=== PATIENT | male | born 1980 | race Caucasian/White ===

== ENCOUNTER 2019-12-23 13:09 | Outpatient (REF) | payer MEDICAID, SELFPAY ==
--- NOTE | 2019-12-23 | US_ITS ---
EXAMINATION: US TRIPLEX SCANNING EXTREMITY, BILATERAL CLINICAL INFORMATION: Bilateral lower limb swelling. Rule out DVT. COMPARISON: None TECHNIQUE: Color-flow triplex imaging with spectral analysis and compression Doppler were performed on the lower extremities. FINDINGS: Respiratory variation, normal compression and augmented flow are noted throughout the lower extremities. The visualized common femoral vein, superficial femoral vein, profunda femoral vein, popliteal vein and midcalf peroneal and posterior tibial venous segments show no evidence of deep venous thrombosis. There is no Morales's cyst. IMPRESSION: Normal triplex scan without evidence of deep venous thrombosis involving the bilateral lower extremities.
== END 2019-12-23 13:10 | disposition home or self-care (01) ==
LOC: HO.HMGCX 13:09
PROVIDERS: PCP Nurse Practitioner Primary Care; Visit Provider Emergency Medicine
DX: R22.43 Localized swelling, mass and lump, lower limb, bilateral (principal)
CPT/HCPCS: 93970

== ENCOUNTER 2020-01-13 09:47 | Outpatient (REF) | payer MEDICAID, SELFPAY ==
--- NOTE | 2020-01-13 09:15 | EMG_ITS ---
Bilateral median and ulnar motor and sensory studies were performed. Bilateral radial sensory studies were performed and paraspinal muscles were tested. The needle examination was somewhat limited as he did not tolerate the examination. IMPRESSION: 1. Mild right median neuropathy across carpal tunnel. 2. Mild left ulnar neuropathy across cubital tunnel. 3. Chronic left mid cervical radiculopathy. MD CORTEZ Quiroz/EMERALD / [id number]
== END 2020-01-13 09:48 | disposition home or self-care (01) ==
LOC: HO.NEURO 09:47
PROVIDERS: Visit Provider Emergency Medicine
DX: R20.0 Anesthesia of skin (principal); R20.2 Paresthesia of skin
CPT/HCPCS: 95860; 95886; 95911

== ENCOUNTER 2020-01-19 13:32 | Emergency (ER) | payer MEDICAID, SELFPAY ==
[2020-01-19 14:32] VITALS: BP 110/69; PULSE 75; RESP 16; TEMP 36.8; BMI 22.3
[2020-01-19 17:13] VITALS: BP 118/76; PULSE 78; RESP 17; TEMP 36.6; O2SAT 100
--- NOTE | 2020-01-19 18:07 | ED_ITS ---
HPI - Abdominal Pain General Chief Complaint: Abdominal Pain Stated Complaint: STOMACH PAIN Time Seen by Provider: 01/19/20 17:48 History of Present Illness HPI narrative: patient is a 39-year-old male presents today with having abdominal pain in the left upper quadrant that is worse with lying down burning in nature been ongoing for years. Patient presents to the emergency department because he wanted to get seen. Patient has specialist follow-up with GI next week. No coughing or congestion or upper respiratory symptoms. No diarrhea. No vomiting. No fever no chills. No chest pain or shortness of breath no diaphoresis. Not made worse with exertion. Patient from home. Related Data Allergies Allergy/AdvReac Type Severity Reaction Status Date / Time No Known Allergies* Allergy Uncoded 12/02/19 21:31 Review of Systems Review of Systems Constitutional: No Weight loss, No Fever, No Chills, No Night Sweats, No Fatigue, No Malaise ENT/Mouth: No Hearing loss, No Ear Pain, No Nasal Congestion, No Sinus Pain, No Hoarseness, No sore throat, No Rhinorrhea, No Swallowing Difficulty Eyes: No Eye Pain, No Swelling, No Redness, No Foreign Body, No Discharge, No Vision Changes Cardiovascular: No Chest Pain, No SOB, No Dyspnea on Exertion, No Orthopnea, No Edema, No Palpitations Respiratory: No Cough, No Sputum, No Wheezing, No Smoke Exposure, No Dyspnea Gastrointestinal: No Nausea, No Vomiting, No Diarrhea, No Constipation, Positive abdominal Pain, No Hematochezia, No Melena Genitourinary: no irregular bleeding, No Dysuria, No Urinary Frequency, No Hematuria, No Urinary Incontinence, No Urgency, No Flank Pain, No Urinary Flow Changes, No Hesitancy Musculoskeletal: No joint pain, No Myalgias, No Joint Swelling Skin: No Skin Lesions, No rash Neuro: No Weakness, No Numbness, No Paresthesias, No Loss of Consciousness, No Dizziness, No Headache Psych: No Anxiety/Panic, No Depression, No SI/HI/AH/VH, No Social Issues, Heme/Lymph: No Bruising, No Bleeding,No Lymphadenopathy Endocrine: No Polyuria, No Polydipsia, No Temperature Intolerance Physical Exam Vital Signs: Vital Signs: Last Vital Signs Temp 98 F 01/19/20 17:13 Pulse 78 01/19/20 17:13 Resp 17 01/19/20 17:13 BP 118/76 01/19/20 17:13 Pulse Ox 100 01/19/20 17:13 Body Mass Index 22.3 Appearance: Alert. Oriented X3. No acute distress. Eyes: Pupils equal, round and reactive to light. ENT: Pharynx normal. Neck: Normal inspection. Neck supple. No lymph nodes noted. No crepitus CVS: Normal heart rate and rhythm. Pulses normal. Normal S1 and S2 Respiratory: No respiratory distress. Breath sounds normal. No Wheezing. No rales Abdomen: Soft and nontender. No rigidity. No distention. good BS x4 Skin: Skin warm and dry. Normal skin color. Normal skin turgor. Extremities: No lower extremity edema. Neurovascular intact to all extremities. No Lacerations. No Rash Neuro: Oriented X 3. No motor deficit. No sensory deficit. Moving all extermities. No slurred speech MDM - Abdominal Pain MDM Narrative Medical decision making narrative: Patient well-appearing electrolytes unre markable. Patient's LFTs are normal. Lipase normal. No evidence for pancreatitis. Will discharge patient home. More likely gastritis. Will have patient increase the dose of Prilosec from once a day to twice a day. Close follow-up with GI on an outpatient basis. In stable condition. Lab Data Result diagrams: 01/19/20 19:04 01/19/20 19:04 Labs: Lab Results 01/19/20 01/19/20 01/19/20 Range/Units 19:04 19:04 19:04 WBC 7.3 (4.8-10.8) X10*3/uL RBC 5.28 (4.60-5.80) X10*6/uL Hgb 14.8 (14.0-18.0) g/dl Hct 44.9 (42-52) % MCV 85.0 (80-98) fL MCH 28.0 (27.0-33.0) pg MCHC 33.0 (31.0-36.0) g/dl RDW 13.2 (11.0-16.0) % Plt Count 181 (160-400) X10*3/uL MPV 10.7 (9.4-12.4) fL Immature Gran % (Auto) 0.1 (0.0-0.4) % Neut % (Auto) 65.2 (45-73) % Lymph % (Auto) 24.0 (20-40) % [place] % (Auto) 8.2 (2-11) % Eos % (Auto) 1.8 (0-4) % Baso % (Auto) 0.7 (0-2) % Lymph # (Auto) 1.8 (1.2-4.9) X10*3/uL [place] # (Auto) 0.6 (0.1-1.2) X10*3/uL Eos # (Auto) 0.1 (0.0-0.4) X10*3/uL Baso # (Auto) 0.1 (0.0-0.2) X10*3/uL Abs Immat Gran (auto) 0.01 (0.00-0.03) X10*3/uL Absolute Neuts (auto) 4.8 (2.0-8.3) X10*3/uL Absolute Nucleated RBC 0.000 (0.0-0.012) X10*3/uL Nucleated RBC % (auto) 0.0 (0.0-0.2) /100WBC Sodium 140 (135-145) mmol/L Potassium 4.2 (3.3-5.1) mmol/l Chloride 101 (96-108) mmol/L Carbon Dioxide 30 H (22-29) mmol/L Anion Gap 13 (12-20) BUN 11 (9-16) mg/dL Creatinine 0.93 (0.5-1.4) mg/dL Estim Creat Clear Calc 107.3 Estimated GFR > 60 Random Glucose 83 (60-115) mg/dL Calcium 8.3 L (8.4-10.2) mg/dL Total Bilirubin 0.4 (0.0-1.0) mg/dL Direct Bilirubin 0.2 (0.0-0.5) mg/dL AST 14 (5-37) U/L ALT 13 (0-40) U/L Alkaline Phosphatase 53 (39-117) U/L Total Protein 7.0 (6.5-8.0) g/dL Albumin 4.2 (3.5-5.0) g/dL Lipase 27 (8-78) U/L Urine Color YELLOW Urine Appearance CLEAR Urine pH 6.0 (5.0-8.0) Ur Specific [place] 1.025 (1.005-1.025) Urine Protein NEG (NEG-TRACE) MG/DL Urine Glucose (UA) NEG (NEG) MG/DL Urine Ketones NEG (NEG) MG/DL Urine Blood NEG (NEG) Urine Nitrite NEG (NEG) Ur Leukocyte Esterase NEG (NEG) Discharge Plan Discharge Clinical Impression: Gastritis Patient Disposition: Home, Self-Care Instructions: Gastritis (ED) Additional Instructions: Please take your Prilosec 20 mg twice a day instead of once a day Referrals: Skylar Banks MD [Physician] - 5 days Stand Alone Forms: Work/School Release Print Language: Tajik [facility] Past Medical History Attestation statement: The following information was validated with the patient. Medical History Ulcer Social History Social History Alcohol intake: never Smoked in Last 30 Days: No Use of substances other than those prescribed or required for medical reasons: No Advance Directives: No Advance Directives Information Provided: No
[2020-01-19] MEDS: Lidocaine HCl Viscous 2 % 15 ML SOLUTION MUCOUS MEM (18:56)
[2020-01-19] MEDS: Magnesium Hydrox/Alum Hydrox 30 ML ORAL.SUSP PO (18:56)
[2020-01-19] MEDS: PHENobarb/Hyoscy/Atropine/Scop 10 ML ELIXIR PO (18:56)
[2020-01-19 19:11] LABS: MANUAL DIFF FLAG NO
[2020-01-19 19:14] LABS: Appearance Urine CLEAR; Basophils Absolute Auto 0.1 X10*3/uL (0.0-0.2); Basophils Percent Auto 0.7 % (0-2); Color Urine YELLOW; Eosinophils Absolute Auto 0.1 X10*3/uL (0.0-0.4); Eosinophils Percent Auto 1.8 % (0-4); Glucose Urine UA NEG (NEG); Hematocrit 44.9 % (42-52); Hemoglobin 14.8 g/dl (14.0-18.0); Imm Gran Abs Auto 0.01 X10*3/uL (0.00-0.03); Imm Gran Pct Auto 0.1 % (0.0-0.4); Leukocyte Esterase Urine NEG (NEG); Lymphocytes Absolute Auto 1.8 X10*3/uL (1.2-4.9); Mean Platelet Volume 10.7 fL (9.4-12.4); Monocytes Absolute Auto 0.6 X10*3/uL (0.1-1.2); Monocytes Percent Auto 8.2 % (2-11); Neutrophils Absolute Auto 4.8 X10*3/uL (2.0-8.3); Neutrophils Percent Auto 65.2 % (45-73); Nitrite Urine NEG (NEG); Platelet Count 181 X10*3/uL (160-400); Red Blood Count 5.28 X10*6/uL (4.60-5.80); Red Cell Distribution Width 13.2 % (11.0-16.0); Specific Gravity - Urine 1.025 (1.005-1.025); Urine Blood NEG (NEG); Urine Ketones NEG (NEG); Urine Protein NEG (NEG-TRACE); White Blood Count 7.3 X10*3/uL (4.8-10.8)
[2020-01-19 19:46] LABS: Alanine Aminotransferase 13 U/L (0-40); Albumin Level 4.2 g/dL (3.5-5.0); Alkaline Phosphatase 53 U/L (39-117); Anion Gap 13 (12-20); Aspartate Amino Transferase 14 U/L (5-37); Bilirubin Direct 0.2 mg/dL (0.0-0.5); Bilirubin Total 0.4 mg/dL (0.0-1.0); Blood Urea Nitrogen 11 mg/dL (9-16); Calcium 8.3 mg/dL (8.4-10.2); Carbon Dioxide 30 mmol/L (22-29); Chloride 101 mmol/L (96-108); Creatinine Clr Calc Pharmacy 107.3; Estimated Glomerular Filt Rate > 60; Glucose Random 83 mg/dL (60-115); Lipase 27 U/L (8-78); Potassium 4.2 mmol/l (3.3-5.1); Sodium 140 mmol/L (135-145)
== END 2020-01-19 20:24 | disposition home or self-care (01) ==
PROVIDERS: Emergency Provider Emergency Medicine Emergency Medical Services
DX: K29.00 Acute gastritis without bleeding (principal); R10.12 Left upper quadrant pain
CPT/HCPCS: 36415; 80048; 80076; 81003; 83690; 85025; 99284

== ENCOUNTER 2020-01-26 13:18 | Outpatient (REF) | payer MEDICAID, SELFPAY | END 2020-01-26 13:19 | disposition home or self-care (01) | LOC: HO.LAB 13:18 | PROVIDERS: Visit Provider Internal Medicine | DX: Z20.828 Contact with and (suspected) exposure to other viral communicable diseases (principal) | CPT/HCPCS: C9803; U0003 ==

== ENCOUNTER → 2020-02-17 08:23 | Outpatient (BNVA) | payer MEDICAID, SELFPAY | PROVIDERS: PCP Emergency Medicine; Referring Provider Emergency Medicine; Visit Provider Physician Assistant | DX: Z76.89 Persons encountering health services in other specified circumstances (principal) ==

== ENCOUNTER 2021-01-09 11:51 | Emergency (ER) | payer MEDICAID, SELFPAY ==
--- NOTE | ~2021-01-09 | US_ITS ---
EXAMINATION: US ABDOMEN LIMITED CLINICAL INFORMATION: Right upper quadrant/epigastric pain after eating. Rule out cholecystitis. COMPARISON: No similar priors. TECHNIQUE: Real-time imaging of the right upper quadrant abdominal viscera. FINDINGS: PANCREAS: The visualized portions of the pancreas are within normal limits. The tail is obscured by overlying bowel gas. LIVER: The liver is normal in size. The liver contour is normal. Parenchymal echogenicity is normal. No focal hepatic lesion. There is no intrahepatic biliary duct dilatation seen. GALLBLADDER: The gallbladder is physiologically distended without evidence of stones, sludge, wall thickening or pericholecystic fluid. There is a 0.3 cm nonmobile hyperechoic outpouching inseparable from the wall, likely a small polyp. COMMON BILE DUCT: Normal in caliber measuring 0.3 cm in diameter. RIGHT KIDNEY: No hydronephrosis. No renal calculi or focal parenchymal lesions. The kidney measures 10.6 cm in maximum dimension. FREE FLUID: None. US/US abdomen limited IMPRESSION: No acute sonographic abnormalities to explain the patient's symptoms. Specifically, no evidence of cholelithiasis or acute cholecystitis. Incidentally noted is made of a 0.3 cm gallbladder wall polyp which does not require further workup per size criteria.
[2021-01-09 12:03] VITALS: BP 117/75; PULSE 73; O2SAT 99
[2021-01-09 12:09] VITALS: BP 130/75; PULSE 65; RESP 18; TEMP 36.8; O2SAT 100; BMI 23.5
[2021-01-09 12:54] LABS: MANUAL DIFF FLAG NO
[2021-01-09 12:55] LABS: Basophils Absolute Auto 0.1 X10*3/uL (0.0-0.2); Basophils Percent Auto 0.8 % (0-2); Eosinophils Absolute Auto 0.1 X10*3/uL (0.0-0.4); Eosinophils Percent Auto 1.5 % (0-4); Hematocrit 47.4 % (42.0-52.0); Hemoglobin 15.9 g/dl (14.0-18.0); Imm Gran Abs Auto 0.01 X10*3/uL (0.00-0.03); Imm Gran Pct Auto 0.1 % (0.0-0.4); Lymphocytes Absolute Auto 1.2 X10*3/uL (1.2-4.9); Lymphocytes Percent Auto 15.3 % (20-40); Mean Corpuscular HGB Conc 33.5 g/dl (31.0-36.0); Mean Corpuscular Hemoglobin 28.8 pg (27.0-33.0); Mean Corpuscular Volume 85.7 fL (80.0-98.0); Mean Platelet Volume 10.3 fL (9.4-12.4); Monocytes Absolute Auto 0.6 X10*3/uL (0.1-1.2); Monocytes Percent Auto 8.1 % (2-11); Neutrophils Absolute Auto 5.56 x10*3/uL (2.0-8.3); Neutrophils Percent Auto 74.2 % (45-73); Platelet Count 170 X10*3/uL (160-400); Red Blood Count 5.53 X10*6/uL (4.60-5.80); Red Cell Distribution Width 13.2 % (11.0-16.0); White Blood Count 7.5 X10*3/uL (4.8-10.8)
--- NOTE | 2021-01-09 12:57 | ED.GIBLEED ---
HPI - GI Bleed General Chief complaint: Abdominal Pain Stated complaint: ABD PAIN W/ VOMITING FROM CLINIC Time Seen by Provider: 01/09/21 12:37 Source: patient and EMS Mode of arrival: EMS Limitations: no limitations History of Present Illness HPI Narrative: 40-year-old male past medical history significant for gastritis, gastric ulcers presents to the emergency department with concerns of epigastric abdominal pain, blood in vomit, and blood in stools since yesterday. He states yesterday he had me, and rice, laid down shortly after he felt like something sour went up his thrill into his mouth, he threw up in the toilet, he noted that there is a small amount of blood. He states that this has never happened to him. He also states he thinks he saw some blood in his stool, yesterday. His abdominal pain is in the epigastric region, does not radiate, is worse with eating. He has had previous endoscopies, which have shown gastric ulcers, and esophagitis He has never had a colonoscopy or H.pylori testing . Thought this time he denies fevers, chills, nausea, chest pain, shortness of breath, weakness, headache, recent upper respiratory infection. MD complaint: blood streaked emesis and blood streaked stool Onset (ago): day(s) (2) Pain Consistency: intermittent (Abdominal pain with eating) Severity: severe Relieving factors: none Exacerbating factors: none Associated symptoms: abdominal pain (Epigastric), nausea and vomiting Treatments Prior to Arrival: OTC meds (Famotidine, Pepcid, Sucralfate ) Related Data Home Medications Medication Instructions Recorded Confirmed sucralfate 1 gram tablet 1 g PO BID 02/17/20 02/17/20 Previous Rx's Medication Instructions Recorded famotidine 40 mg tablet 40 mg PO DAILY #30 tab 02/17/20 omeprazole 40 mg capsule,delayed 40 mg PO BID 14 Days #28 cap 01/09/21 release ondansetron 4 mg disintegrating 4 mg PO ONCE PRN #7 tab 01/09/21 tablet Allergies Allergy/AdvReac Type Severity Reaction Status Date / Time No Known Drug Allergies Allergy Unknown Verified 01/09/21 12:15 Review of Systems Review of Systems: Constitutional : No Weight loss, No Fever, No Chills, No Fatigue, No Malaise ENT/Mouth : No sore throat, No Rhinorrhea Eyes: No Eye Pain, No Swelling, No Redness Cardiovascular : No Chest Pain, No SOB, No Dyspnea on Exertion, No Orthopnea, No Edema, No Palpitations Respiratory : No Cough, No Sputum, No Wheezing Gastrointestinal : No Nausea, + Vomiting, No Diarrhea, No Constipation, + abdominal Pain,+ hematemesis, No Hematochezia, No Melena, + Blood steaked stook Genitourinary : No Dysuria, No Urinary Frequency, No Hematuria, Musculoskeletal : No joint pain, No Myalgias, No Joint Swelling Skin : No Skin Lesions, No rash Neuro : No Weakness, No Numbness, No Dizziness, No Headache All other systems reviewed and are negative [facility] Past Medical History Attestation statement: The following information was validated with the patient. Source: old records reviewed and nursing notes reviewed Medical History Acid reflux Hiatal hernia Ulcer Varicose vein of scrotum Family History Family History Unknown No problems noted. Social History Social History Household Members: Spouse and Children Alcohol intake: never Patient Tobacco Use Status: Never used Tobacco Use of substances other than those prescribed or required for medical reasons: No Advance Directives: No Advance Directives Information Provided: Yes Physical Exam Vital Signs: Vital Signs: Last Vital Signs Temp 98.2 F 01/09/21 12:09 Pulse 65 01/09/21 12:09 Resp 18 01/09/21 12:09 BP 130/75 01/09/21 12:09 Pulse Ox 100 01/09/21 12:09 Body Mass Index 23.5 Appearance: Alert. Oriented X3. No acute distress. Eyes: Pupils equal, round and reactive to light. ENT: Pharynx normal. Neck: Normal inspection. Neck supple. CVS: Normal heart rate and rhythm. Pulses normal. Respiratory: No respiratory distress. Breath sounds normal. Abdomen: Soft and + tenderness to palpation to epigastric region . Skin: Skin warm and dry. Normal skin color. Normal skin turgor. Extremities: No lower extremity edema. No calf ttp Neuro: Oriented X 3. No motor deficit. No sensory deficit. Course Reevaluation(s) Reevaluation #1: At this time there is no leukocytosis noted, H&H stable, no anemia noted. No evident electrolyte abnormalities. Hemoccult negative. COVID negative. At this time vital signs are stable, patient is not tachycardic, patient reports no bleeding while in the emergency department, hemoccult is negative. No concerns for acute blood loss anemia at this time. This is likely chronic gastritis. Patient has already been instructed to get tested for H pylori, however he has not followed up. He has been educated on the importance of getting H pylori tested and following up with GI for further evaluation. He will be provided with GI contact information, so he can call and make an appointment. He will be sent home on high-dose PPIs for 2 weeks. He will also be given Zofran for nausea. He is safe for discharge home with prompt GI follow up and PCP follow up Time: 14:39 MDM - GI Bleed MDM Narrative Medical decision making narrative: 1325 40-year-old male past medical history significant for gastric ulcers, and gastritis presents to the emergency department with 2 days of epigastric pain that is sharp, intermittent in nature, wors with eating, blood streaked emesis, and blood streak stool x2 days. He is, and an endoscopy in the past which showed gastritis, and gastric ulcers. He has never had H pylori testing, or colonoscopies in the past. Upon physical examination there is tenderness to the epigastric region. Lungs are clear to auscultation. Vital signs are stable, and patient is afebrile. S1 and S2 appreciated free of murmurs. A HUMA has been done, and a card will be sent down for stool guaiac. Plan at this time is to obtain basic labs, type and screen, drug screen, EtOH, liver, OBS, PTT, PT INR. He will be given pantoprazole, and Zofran. Lab Data Result diagrams: 01/09/21 12:49 01/09/21 12:49 Labs: Lab Results 01/09/21 01/09/21 01/09/21 Range/Units 12:49 12:49 13:21 WBC 7.5 (4.8-10.8) X10*3/uL RBC 5.53 (4.60-5.80) X10*6/uL Hgb 15.9 (14.0-18.0) g/dl Hct 47.4 (42.0-52.0) % MCV 85.7 (80.0-98.0) fL MCH 28.8 (27.0-33.0) pg MCHC 33.5 (31.0-36.0) g/dl RDW 13.2 (11.0-16.0) % Plt Count 170 (160-400) X10*3/uL MPV 10.3 (9.4-12.4) fL Immature Gran % (Auto) 0.1 (0.0-0.4) % Neut % (Auto) 74.2 H (45-73) % Lymph % (Auto) 15.3 L (20-40) % [place] % (Auto) 8.1 (2-11) % Eos % (Auto) 1.5 (0-4) % Baso % (Auto) 0.8 (0-2) % Lymph # (Auto) 1.2 (1.2-4.9) X10*3/uL [place] # (Auto) 0.6 (0.1-1.2) X10*3/uL Eos # (Auto) 0.1 (0.0-0.4) X10*3/uL Baso # (Auto) 0.1 (0.0-0.2) X10*3/uL Abs Immat Gran (auto) 0.01 (0.00-0.03) X10*3/uL Absolute Neuts (auto) 5.56 (2.0-8.3) x10*3/uL Absolute Nucleated RBC 0.000 (0.0-0.012) X10*3/uL Nucleated RBC % (auto) 0.0 (0.0-0.2) /100WBC PT (9.9-13.0) SEC INR (0.9-1.1) APTT (24.1-38.0) SEC Sodium 138 (135-145) mmol/L Potassium 4.5 (3.3-5.1) mmol/L Chloride 103 (96-108) mmol/L Carbon Dioxide 29 (22-29) mmol/L Anion Gap 11 L (12-20) BUN 8 L (9-16) mg/dL Creatinine 0.90 (0.5-1.4) mg/dL Estim Creat Clear Calc 113.8 Estimated GFR > 60 Random Glucose 91 (60-115) mg/dL Calcium 8.8 D (8.4-10.2) mg/dL Total Bilirubin 0.3 (0.0-1.0) mg/dL AST 19 (5-37) U/L ALT 23 (0-40) U/L Alkaline Phosphatase 54 (39-117) U/L Total Protein 7.1 (6.5-8.0) g/dL Albumin 4.2 (3.5-5.0) g/dL Lipase 23 (8-78) U/L Stool Occult Blood (NEGATIVE) Ethyl Alcohol mg/dL COVID-19 (JARETH) (Negative) COVID-19 Clin Com Blood Type Antibody Screen 01/09/21 01/09/21 01/09/21 Range/Units 13:21 13:21 13:21 WBC (4.8-10.8) X10*3/uL RBC (4.60-5.80) X10*6/uL Hgb (14.0-18.0) g/dl Hct (42.0-52.0) % MCV (80.0-98.0) fL MCH (27.0-33.0) pg MCHC (31.0-36.0) g/dl RDW (11.0-16.0) % Plt Count (160-400) X10*3/uL MPV (9.4-12.4) fL Immature Gran % (Auto) (0.0-0.4) % Neut % (Auto) (45-73) % Lymph % (Auto) (20-40) % [place] % (Auto) (2-11) % Eos % (Auto) (0-4) % Baso % (Auto) (0-2) % Lymph # (Auto) (1.2-4.9) X10*3/uL [place] # (Auto) (0.1-1.2) X10*3/uL Eos # (Auto) (0.0-0.4) X10*3/uL Baso # (Auto) (0.0-0.2) X10*3/uL Abs Immat Gran (auto) (0.00-0.03) X10*3/uL Absolute Neuts (auto) (2.0-8.3) x10*3/uL Absolute Nucleated RBC (0.0-0.012) X10*3/uL Nucleated RBC % (auto) (0.0-0.2) /100WBC PT 12.4 (9.9-13.0) SEC INR 1.1 (0.9-1.1) APTT 32.3 (24.1-38.0) SEC Sodium (135-145) mmol/L Potassium (3.3-5.1) mmol/L Chloride (96-108) mmol/L Carbon Dioxide (22-29) mmol/L Anion Gap (12-20) BUN (9-16) mg/dL Creatinine (0.5-1.4) mg/dL Estim Creat Clear Calc Estimated GFR Random Glucose (60-115) mg/dL Calcium (8.4-10.2) mg/dL Total Bilirubin (0.0-1.0) mg/dL AST (5-37) U/L ALT (0-40) U/L Alkaline Phosphatase (39-117) U/L Total Protein (6.5-8.0) g/dL Albumin (3.5-5.0) g/dL Lipase (8-78) U/L Stool Occult Blood (NEGATIVE) Ethyl Alcohol < 10 mg/dL COVID-19 (JARETH) Negative (Negative) COVID-19 Clin Com See Note Blood Type Antibody Screen 01/09/21 01/09/21 Range/Units 13:21 13:33 WBC (4.8-10.8) X10*3/uL RBC (4.60-5.80) X10*6/uL Hgb (14.0-18.0) g/dl Hct (42.0-52.0) % MCV (80.0-98.0) fL MCH (27.0-33.0) pg MCHC (31.0-36.0) g/dl RDW (11.0-16.0) % Plt Count (160-400) X10*3/uL MPV (9.4-12.4) fL Immature Gran % (Auto) (0.0-0.4) % Neut % (Auto) (45-73) % Lymph % (Auto) (20-40) % [place] % (Auto) (2-11) % Eos % (Auto) (0-4) % Baso % (Auto) (0-2) % Lymph # (Auto) (1.2-4.9) X10*3/uL [place] # (Auto) (0.1-1.2) X10*3/uL Eos # (Auto) (0.0-0.4) X10*3/uL Baso # (Auto) (0.0-0.2) X10*3/uL Abs Immat Gran (auto) (0.00-0.03) X10*3/uL Absolute Neuts (auto) (2.0-8.3) x10*3/uL Absolute Nucleated RBC (0.0-0.012) X10*3/uL Nucleated RBC % (auto) (0.0-0.2) /100WBC PT (9.9-13.0) SEC INR (0.9-1.1) APTT (24.1-38.0) SEC Sodium (135-145) mmol/L Potassium (3.3-5.1) mmol/L Chloride (96-108) mmol/L Carbon Dioxide (22-29) mmol/L Anion Gap (12-20) BUN (9-16) mg/dL Creatinine (0.5-1.4) mg/dL Estim Creat Clear Calc Estimated GFR Random Glucose (60-115) mg/dL Calcium (8.4-10.2) mg/dL Total Bilirubin (0.0-1.0) mg/dL AST (5-37) U/L ALT (0-40) U/L Alkaline Phosphatase (39-117) U/L Total Protein (6.5-8.0) g/dL Albumin (3.5-5.0) g/dL Lipase (8-78) U/L Stool Occult Blood NEGATIVE (NEGATIVE) Ethyl Alcohol mg/dL COVID-19 ([facility]ARETH) (Negative) COVID-19 Clin Com Blood Type O Positive Antibody Screen NEGATIVE Discharge Plan Discharge Clinical Impression: Acid reflux, Gastritis, Epigastric abdominal pain Patient Disposition: Home, Self-Care Instructions: Gastritis (ED), Diet for Stomach Ulcers and Gastritis (ED), Indigestion (ED), Epigastric Pain (ED) Additional Instructions: Do not take any NSAIDS Follow-up with GI, and your primary care provider. It is important that you get tested for H pylori. Your labs today looked good and showed no infection, or anemia. The ultrasound of your stomach also looks good. Return to the emergency department with new or worsening symptoms Prescriptions: New omeprazole 40 mg capsule,delayed release(DR/EC) 40 mg PO BID 14 Days Qty: 28 RF: 0 ondansetron 4 mg tablet,disintegrating 4 mg PO ONCE PRN (Reason: nausea and vomiting) Qty: 7 RF: 0 No Action sucralfate 1 gram tablet 1 g PO BID RF: 0 famotidine 40 mg tablet 40 mg PO DAILY Qty: 30 RF: 5 Referrals: Tony Frazier MD [Physician] - 2 days Stand Alone Forms: Work/School Release Print Language: Lao
[2021-01-09 13:18] LABS: Alanine Aminotransferase 23 U/L (0-40); Albumin Level 4.2 g/dL (3.5-5.0); Alkaline Phosphatase 54 U/L (39-117); Anion Gap 11 (12-20); Aspartate Amino Transferase 19 U/L (5-37); Bilirubin Total 0.3 mg/dL (0.0-1.0); Blood Urea Nitrogen 8 mg/dL (9-16); Calcium 8.8 mg/dL (8.4-10.2); Carbon Dioxide 29 mmol/L (22-29); Chloride 103 mmol/L (96-108); Creatinine Clr Calc Pharmacy 113.8; Estimated Glomerular Filt Rate > 60; Glucose Random 91 mg/dL (60-115); Potassium 4.5 mmol/L (3.3-5.1); Sodium 138 mmol/L (135-145); Total Protein 7.1 g/dL (6.5-8.0)
[2021-01-09] MEDS: Pantoprazole Sodium 40 MG/10 ML VIAL IVPUSH (13:23)
[2021-01-09] MEDS: ondansetron HCL 4 MG/2 ML VIAL IVPUSH (13:23)
[2021-01-09] MEDS: 0.9 % Sodium Chloride 1,000 ML 999 ML IV (13:23)
--- NOTE | 2021-01-09 13:26 | PC.NURSE ---
iv inserted, labs drawn, pt medicated per order, pt is aware we need a urine, vss, covid swab obtained, family at bedside, will continue to monitor.
[2021-01-09 13:28] LABS: OBS1 NEGATIVE (NEGATIVE)
[2021-01-09 13:29] LABS: OBS Int Ctl Valid YES
[2021-01-09 13:40] LABS: INTERNATIONAL NORM RATIO 1.1 (0.9-1.1); Prothrombin Time 12.4 SEC (9.9-13.0)
[2021-01-09 13:42] LABS: COVID-19 Test Negative (Negative); IDNOW Serial# 9DD0AD1C
[2021-01-09 13:43] LABS: Partial Thromboplastin Time 32.3 SEC (24.1-38.0)
[2021-01-09 13:47] LABS: Ethanol < 10 mg/dL
[2021-01-09 13:50] LABS: Lipase 23 U/L (8-78)
--- NOTE | 2021-01-09 13:55 | PC.NURSE ---
patient is in ultrasound
[2021-01-09 14:00] VITALS: BP 129/68; PULSE 66; RESP 18; TEMP 36.7; O2SAT 100
== END 2021-01-09 15:02 | disposition home or self-care (01) ==
PROVIDERS: Emergency Provider Emergency Medicine; PCP Nurse Practitioner Primary Care
DX: K29.70 Gastritis, unspecified, without bleeding (principal); K21.9 Gastro-esophageal reflux disease without esophagitis; Z20.822 Contact with and (suspected) exposure to COVID-19; Z79.899 Other long term (current) drug therapy
CPT/HCPCS: 36415; 76705; 80053; 82077; 82272; 83690; 85025; 85610; 85730; 86850; 86900; 86901; 87635; 96361; 96374; 96375; 99284; J2405

== ENCOUNTER → 2021-04-19 14:27 | Outpatient (BNVA) | payer MEDICAID, SELFPAY | PROVIDERS: PCP Nurse Practitioner Primary Care; Referring Provider Nurse Practitioner Primary Care; Visit Provider Physician Assistant | DX: K20.90 Esophagitis, unspecified without bleeding (principal); K21.9 Gastro-esophageal reflux disease without esophagitis | CPT/HCPCS: 99212 ==

== ENCOUNTER 2021-04-27 09:21 | Outpatient (REF) | payer MEDICAID, SELFPAY ==
[2021-04-27 09:34] LABS: MANUAL DIFF FLAG NO
[2021-04-27 10:00] LABS: Basophils Percent Auto 0.6 % (0-2); Eosinophils Absolute Auto 0.2 X10*3/uL (0.0-0.4); Eosinophils Percent Auto 3.2 % (0-4); Hematocrit 44.8 % (42.0-52.0); Hemoglobin 14.7 g/dl (14.0-18.0); Lymphocytes Absolute Auto 1.2 X10*3/uL (1.2-4.9); Lymphocytes Percent Auto 22.9 % (20-40); Mean Corpuscular HGB Conc 32.8 g/dl (31.0-36.0); Mean Corpuscular Hemoglobin 27.9 pg (27.0-33.0); Mean Corpuscular Volume 85.2 fL (80.0-98.0); Mean Platelet Volume 10.9 fL (9.4-12.4); Monocytes Absolute Auto 0.6 X10*3/uL (0.1-1.2); Neutrophils Absolute Auto 3.4 x10*3/uL (2.0-8.3); Neutrophils Percent Auto 62.3 % (45-73); Platelet Count 191 X10*3/uL (160-400); Red Blood Count 5.26 X10*6/uL (4.60-5.80); Red Cell Distribution Width 13.2 % (11.0-16.0); White Blood Count 5.4 X10*3/uL (4.8-10.8)
== END 2021-04-27 09:22 | disposition home or self-care (01) ==
LOC: HO.LAB 09:21
PROVIDERS: PCP Nurse Practitioner Primary Care; Visit Provider Physician Assistant
DX: K20.90 Esophagitis, unspecified without bleeding (principal)
CPT/HCPCS: 36415; 85025

== ENCOUNTER 2021-05-17 10:30 | Day surgery (SDC) | payer MEDICAID, SELFPAY ==
[2021-05-17 10:52] VITALS: BMI 22.8
[2021-05-17 11:12] VITALS: BP 111/63; PULSE 74; RESP 16; TEMP 36.8; O2SAT 98
[2021-05-17] MEDS: Lactated Ringers 1,000 ML 50 ML IVCONT (11:18)
--- NOTE | 2021-05-17 11:55 | PC.NURSE ---
Patient states he tested positive for covid 19 via home test at the end of March, around April 03 . Patient feels back to normal now. Dr. Wynn made aware. Okay to proceed as scheduled.
--- NOTE | 2021-05-17 11:58 | MHC.SHP ---
Pre-Procedural Eval Section A Date of Service: 05/17/21 Section B Chief Complaint: esophagitis without bleeding Relevant Family History (Specify if Yes): No Relevant Social History: None Present Medications: see Short Stay Collaborative assessment Medical History: Significant History (Acid reflux Esophagitis Hiatal hernia Ulcer Varicose vein of scrotum) Allergies: Allergies Allergy/AdvReac Type Severity Reaction Status Date / Time No Known Drug Allergies Allergy Unknown Verified 01/09/21 12:15 Review of Systems Sugical H&P ROS: Negative: Constitution, Cardiovascular, Respiratory, Neurological, Psychiatric, Hem-Onc, Allergic/Immunologic, Gastrointestinal, Genitourinary, Musculoskeletal, Integumentary, Endocrine and Eyes/Ears/Nose/Throat Exam Surgical H&P Exam: Normal: HEENT, Normal: Heart, Normal: Lungs, Normal: Extremities, Normal: Abdomen, Normal: Skin and Normal: Neurological Plan Diagnosis/Plan: Unchanged I have reviewed the history and physical and performed a pertinent physical examination on my patient. No changes have occurred unless specified.
--- NOTE | 2021-05-17 12:25 | P.CONAN_ITS ---
HPI - Anesthesia Eval Consult details Narrative: [facility] Active Problems Active Problems: All Active Problems (Updated 04/19/21 @ 15:24 by Alexa Miranda PA-C) Esophagitis (Acute) Acid reflux (Acute) Past Medical History Medical History Acid reflux Esophagitis Hiatal hernia Ulcer Varicose vein of scrotum Family History Family History Unknown No problems noted. Family history of problems with anesthesia: No Surgical History Surgical History (Updated 05/11/21 @ 11:22 by Joy Villalobos RN) History of esophagogastroduodenoscopy (EGD) Hx of colonoscopy History of Problems with Anesthesia: No Social History Social History (Updated 04/19/21 @ 14:39 by Alexa Miranda PA-C) Household Members: Spouse and Children Alcohol intake: never Patient Tobacco Use Status: Never used Tobacco Use of substances other than those prescribed or required for medical reasons: No Are you DNR?: No Advance Directives: No Advance Directives Information Provided: Yes Current occupation: [employer] Allergies Allergy/AdvReac Type Severity Reaction Status Date / Time No Known Drug Allergies Allergy Unknown Verified 01/09/21 12:15 Active Medications: Current Medications Lactated Ringer's (Lr) 1,000 mls @ 50 mls/hr IVCONT .Q20H ANTONIO Last Admin: 05/17/21 11:18 Dose: 50 mls/hr Documented by: Exam Exam Date and Time: May 17, 2021 1225 Height,Weight and Vital Signs: Height 5 ft 11 in Weight 74.389 kg Last Vital Signs Temp 98.3 F 05/17/21 11:12 Pulse 74 05/17/21 11:12 Resp 16 05/17/21 11:12 BP 111/63 05/17/21 11:12 Pulse Ox 98 05/17/21 11:12 Airway Mallampati Class: II TM Dist: >3cm Neck ROM: Full Loose/Missing/Broken Teeth: No Heart: [id number] Lungs: cta b/l Assessment and Plan Assessment Anesthesia Assessment: Anesthesia Plan Discussed and Chart Reviewed Final Anesthetic Review Family History of Problems with Anesthesia: No History of Problems with Anesthesia: No NPO: Yes ASA Class: II Final Preanesthetic Review: No Changes in Pt Med Stat, Meds/Allgs Chart Reviewed, Consent Obtained/Reviewed and Anes Risks/Benef Reviewed Patient Risk: Intermediate Procedure Risk: Intermediate Assessment/Block/Sedation in SS: Assess/Block/Sedation-SS Anesthetic Plan Anesthetic Plan: MAC: and Agree w/ Assess. and Plan Disposition: Standard PACU
--- NOTE | 2021-05-17 13:18 | PM.OP ---
Brief Operative Note Date of Service: 05/17/21 Pre-op diagnosis: abdominal pain, reflux Post-op diagnosis: same Procedure: see op note Surgeon: Alfonso Hansen MD Anesthesia: MAC Was an Animal Ride Manager used for this Procedure?: No Estimated blood loss (mL): 0 Condition: stable Disposition: PACU
--- NOTE | 2021-05-17 13:18 | W.PM.OPN ---
Operative Note Operative Note Date of Service: 05/17/21 Narrative: Procedure Description: EGD FLEXIBLE TRANSORAL UPPER GASTROINTESTINAL ENDOSCOPY UPPER ENDOSCOPY Consent: Indications for the procedure and potential complications of bleeding, perforation, reaction to medications and missed diagnosis were discussed with the patient and informed consent was obtained. Instrument: Olympus GIF H 190 J mid size upper endoscope Monitoring: Vital signs and clinical assessment, continuous EKG monitoring, Pulse oximetry, Carbon Dioxide monitoring and blood pressure monitoring were done throughout the procedure. Procedure: The patient was placed in the left lateral decubitis position and pre-procedure medications were administered and a bite block was placed. The endoscope was inserted into the mouth and advanced under direct vision to the third part of duodenum. A careful inspection was made as the upper endoscope was withdrawn including a retroflexed examination of the proximal stomach; Findings and interventions are described below. Findings: Larynx:normal Esophagus: GE junction at 38 cm, diaphragm hiatus at 40 cm, with 2 cm sliding hiatal hernia. Erosive esophagitis noted with linear streaks and bogginess with nodularity of the GEJ, bx taken as well as random esophagus bx. Stomach: Mild patchy gastric erythema. Biopsies were obtained. Grade 3 flap valve on retroflexed examination of the cardia with patulous LES. Duodenum: Normal bulb and descending duodenum, bx taken Intervention: Biopsies as noted above Impression/Findings: patulous LES hiatal hernia erosive esophagitis PLAN: check compliance with PPI Reflux precautions and diet if sx persist can consider referral for fundoplication and hernia repair
[2021-05-17 13:29] VITALS: BP 92/49; PULSE 83; RESP 16; TEMP 36.2; O2SAT 97
[2021-05-17 13:44] VITALS: BP 97/66; PULSE 64; RESP 16; TEMP 36.2; O2SAT 100
[2021-05-17 13:49] VITALS: BP 105/62; PULSE 64; RESP 16; TEMP 36.2; O2SAT 100
== END 2021-05-17 14:59 | disposition home or self-care (01) ==
PROVIDERS: PCP Nurse Practitioner Primary Care; Visit Provider Internal Medicine Gastroenterology
PROC: 0DJ08ZZ Inspection of Upper Intestinal Tract, Via Natural or Artificial Opening Endoscopic (ICD-10-PCS; CPT 43235; principal; 2021-05-17 12:20)
DX: K21.00 Gastro-esophageal reflux disease with esophagitis, without bleeding (principal); K44.9 Diaphragmatic hernia without obstruction or gangrene; Z87.11 Personal history of peptic ulcer disease; Z79.899 Other long term (current) drug therapy
CPT/HCPCS: 43239; 88305; 88342

== ENCOUNTER 2022-03-25 20:12 | Emergency (ER) | payer MEDICAID, SELFPAY ==
--- NOTE | ~2022-03-25 | XR_ITS ---
Examination: XR hand wrist RT, XR lumbar spine 2-3V, XR sacrum coccyx min 2V, XR forearm RT 2V Indication: Pain Comparison: 12/02/2019 views of the right hand Technique: 2 views the right forearm, 3 views of the right hand and wrist, frontal and 2 lateral views of the lumbosacral spine and 3 additional views of the sacrum/coccyx Findings: Right forearm: Bones are normal anatomic alignment with no acute fracture or dislocation seen. Right hand: Bones are normal anatomic alignment with no acute fracture or dislocation. No bony destructive lesions or periosteal reaction. No radiopaque foreign body or soft tissue gas. Lumbosacral spine: Bones are normal anatomic alignment with no acute fracture or spondylolisthesis. Vertebral body heights and disc heights are preserved. Paravertebral soft tissues and bowel gas pattern unremarkable. Sacrum/coccyx: Again the bones are normal anatomic alignment with no acute fracture or spondylolisthesis. No significant step-off identified. XR/XR hand wrist RT Impression: No acute fracture or dislocation seen.
--- NOTE | ~2022-03-25 | XR_ITS ---
Examination: XR hand wrist RT, XR lumbar spine 2-3V, XR sacrum coccyx min 2V, XR forearm RT 2V Indication: Pain Comparison: 12/02/2019 views of the right hand Technique: 2 views the right forearm, 3 views of the right hand and wrist, frontal and 2 lateral views of the lumbosacral spine and 3 additional views of the sacrum/coccyx Findings: Right forearm: Bones are normal anatomic alignment with no acute fracture or dislocation seen. Right hand: Bones are normal anatomic alignment with no acute fracture or dislocation. No bony destructive lesions or periosteal reaction. No radiopaque foreign body or soft tissue gas. Lumbosacral spine: Bones are normal anatomic alignment with no acute fracture or spondylolisthesis. Vertebral body heights and disc heights are preserved. Paravertebral soft tissues and bowel gas pattern unremarkable. Sacrum/coccyx: Again the bones are normal anatomic alignment with no acute fracture or spondylolisthesis. No significant step-off identified. XR/XR sacrum coccyx min 2V Impression: No acute fracture or dislocation seen.
--- NOTE | ~2022-03-25 | XR_ITS ---
Examination: XR hand wrist RT, XR lumbar spine 2-3V, XR sacrum coccyx min 2V, XR forearm RT 2V Indication: Pain Comparison: 12/02/2019 views of the right hand Technique: 2 views the right forearm, 3 views of the right hand and wrist, frontal and 2 lateral views of the lumbosacral spine and 3 additional views of the sacrum/coccyx Findings: Right forearm: Bones are normal anatomic alignment with no acute fracture or dislocation seen. Right hand: Bones are normal anatomic alignment with no acute fracture or dislocation. No bony destructive lesions or periosteal reaction. No radiopaque foreign body or soft tissue gas. Lumbosacral spine: Bones are normal anatomic alignment with no acute fracture or spondylolisthesis. Vertebral body heights and disc heights are preserved. Paravertebral soft tissues and bowel gas pattern unremarkable. Sacrum/coccyx: Again the bones are normal anatomic alignment with no acute fracture or spondylolisthesis. No significant step-off identified. XR/XR forearm RT 2V Impression: No acute fracture or dislocation seen.
--- NOTE | ~2022-03-25 | XR_ITS ---
Examination: XR hand wrist RT, XR lumbar spine 2-3V, XR sacrum coccyx min 2V, XR forearm RT 2V Indication: Pain Comparison: 12/02/2019 views of the right hand Technique: 2 views the right forearm, 3 views of the right hand and wrist, frontal and 2 lateral views of the lumbosacral spine and 3 additional views of the sacrum/coccyx Findings: Right forearm: Bones are normal anatomic alignment with no acute fracture or dislocation seen. Right hand: Bones are normal anatomic alignment with no acute fracture or dislocation. No bony destructive lesions or periosteal reaction. No radiopaque foreign body or soft tissue gas. Lumbosacral spine: Bones are normal anatomic alignment with no acute fracture or spondylolisthesis. Vertebral body heights and disc heights are preserved. Paravertebral soft tissues and bowel gas pattern unremarkable. Sacrum/coccyx: Again the bones are normal anatomic alignment with no acute fracture or spondylolisthesis. No significant step-off identified. XR/XR lumbar spine 2-3V Impression: No acute fracture or dislocation seen.
[2022-03-25 20:33] VITALS: BP 104/74; PULSE 73; RESP 16; TEMP 36.6; O2SAT 98; BMI 23.0
--- NOTE | 2022-03-25 20:36 | ED_ITS ---
HPI - General Adult General Chief complaint: Fall <MARBELLA Esposito - Last Filed: 03/26/22 11:42> Stated complaint: lower back pain fell 03/25 <MARBELLA Esposito - Last Filed: 03/26/22 11:42> Time Seen by Provider: 03/25/22 20:55 <MARBELLA Esposito - Last Filed: 03/26/22 11:42> Source: patient <Ann Marie Wilcox MD - Last Filed: 03/25/22 22:03> Mode of arrival: ambulatory <Ann Marie Wilcox MD - Last Filed: 03/25/22 22:03> Limitations: no limitations <Ann Marie Wilcox MD - Last Filed: 03/25/22 22:03> History of Present Illness HPI narrative: Patient comes to the emergency room complaining of back pain. Patient states that he was walking up the stairs, missed the last step and landed on the right side of his body. Patient complaining of lumbar pain, mild rest pain. Patient did not hit his head, did not lose consciousness. Patient denies being on blood thinners. Patient ambulatory <Ann Marie Wilcox MD - Last Filed: 03/25/22 22:03> Related Data Home medications: Previous Rx's Medication Instructions Recorded famotidine 40 mg tablet 40 mg PO DAILY #30 tabs 02/17/20 ondansetron 4 mg disintegrating 4 mg PO ONCE PRN nausea and 01/09/21 tablet vomiting #7 tabs sucralfate 1 gram tablet 1 g PO QID #90 tabs 05/07/21 lansoprazole 30 mg capsule,delayed 30 mg PO BID #90 caps 05/17/21 release cyclobenzaprine 10 mg tablet 10 mg PO TID PRN muscle spasm #10 03/25/22 tabs ibuprofen 600 mg tablet 600 mg PO TID PRN pain #20 tabs 03/25/22 <MARBELLA Esposito - Last Filed: 03/26/22 11:42> Allergies/adverse reactions: Allergies Allergy/AdvReac Type Severity Reaction Status Date / Time No Known Drug Allergies Allergy Unknown Verified 01/09/21 12:15 <MARBELLA Esposito - Last Filed: 03/26/22 11:42> Review of Systems Review of Systems: Constitutional : No Weight loss, No Fever, No Chills, No Night Sweats, No Fatigue, No Malaise ENT/Mouth : No Hearing loss, No Ear Pain, No Nasal Congestion, No Sinus Pain, No Hoarseness, No sore throat, No Rhinorrhea, No Swallowing Difficulty Eyes: No Eye Pain, No Swelling, No Redness, No Foreign Body, No Discharge, No Vision Changes Cardiovascular : No Chest Pain, No SOB, No Dyspnea on Exertion, No Orthopnea, No Edema, No Palpitations Respiratory : No Cough, No Sputum, No Wheezing, No Smoke Exposure, No Dyspnea Gastrointestinal : No Nausea, No Vomiting, No Diarrhea, No Constipation, No abdominal Pain, No Hematochezia, No Melena Genitourinary : no irregular bleeding, No Dysuria, No Urinary Frequency, No Hematuria, No Urinary Incontinence, No Urgency, No Flank Pain, No Urinary Flow Changes, No Hesitancy Musculoskeletal : Complaining of sacral/lumbar pain, complaining of wrist pain on the right of Skin : No Skin Lesions, No rash Neuro : No Weakness, No Numbness, No Paresthesias, No Loss of Consciousness, No Dizziness, No Headache Psych : No Anxiety/Panic, No Depression, No SI/HI/AH/VH, No Social Issues, Heme/Lymph: No Bruising, No Bleeding,No Lymphadenopathy Endocrine : No Polyuria, No Polydipsia, No Temperature Intolerance <Ann Marie Wilcox MD - Last Filed: 03/25/22 22:03> [facility] Past Medical History Medical History: Medical History Acid reflux Esophagitis Hiatal hernia Ulcer Varicose vein of scrotum <MARBELLA Esposito - Last Filed: 03/26/22 11:42> Surgical History: Surgical History (Updated 05/25/21 @ 14:42 by Layla Elizabeth) History of esophagogastroduodenoscopy (EGD) Hx of colonoscopy <MARBELLA Esposito - Last Filed: 03/26/22 11:42> Family History Family History: Family History Unknown No problems noted. <MARBELLA Esposito - Last Filed: 03/26/22 11:42> Social History Social History: Social History (Updated 04/19/21 @ 14:39 by Alexa Miranda PA-C) Household Members: Spouse and Children Alcohol intake: never Patient Tobacco Use Status: Never used Tobacco Advance Directives: No Current occupation: [employer] <MARBELLA Esposito - Last Filed: 03/26/22 11:42> Physical Exam ED Vital Signs: Vital Signs - 24 hr 03/25/22 20:33 Temperature 97.9 F Pulse Rate 73 Respiratory Rate 16 Blood Pressure 104/74 Pulse Oximetry 98 Oxygen Delivery Method Room Air BMI result Body Mass Index 23.0 <MARBELLA Esposito - Last Filed: 03/26/22 11:42> Vital Signs - 24 hr 03/25/22 20:33 Temperature 97.9 F Pulse Rate 73 Respiratory Rate 16 Blood Pressure 104/74 Pulse Oximetry 98 Oxygen Delivery Method Room Air BMI result Body Mass Index 23.0 <Ann Marie Wilcox MD - Last Filed: 03/25/22 22:03> Const Other: Appearance: Alert. Oriented X3. No acute distress. Eyes: Pupils equal, round and reactive to light. ENT: Pharynx normal. Neck: Normal inspection. Neck supple. No lymph nodes noted. No crepitus CVS: Normal heart rate and rhythm. Pulses normal. Normal S1 and S2 Respiratory: No respiratory distress. Breath sounds normal. No Wheezing. No rales Abdomen: Soft and nontender. No rigidity. No distention. Back: Patient able to flex and extend the back, pain to palpation over the right elbow over the lumbar/sacral area, full range of motion of upper and lower extremities. Skin: Skin warm and dry. Normal skin color. Normal skin turgor. No ecchymosis in chest abdomen pelvis or legs Extremities: No lower extremity edema. No Lacerations. No Rash Neuro: Oriented X 3. No motor deficit. No sensory deficit. Moving all extremities. No slurred speech. CN 2 through 12 grossly intact Psych: calm, cooperative, normal affect <Ann Marie Wilcox MD - Last Filed: 03/25/22 22:03> Course Course Course Narrative: RME: patient presents to the ED for lower back pain after tripping at home and falling unto his back. Xrays ordered <MARBELLA Esposito - Last Filed: 03/26/22 11:42> Medical Decision Making Medical Decision Making MDM Narrative: -patient states he took pain medication prior to arrival, does not know what his gave him, states he was 1 of his 's pills <Ann Marie Wilcox MD - Last Filed: 03/25/22 22:03> Differential Diagnosis Differential Diagnoses: The differential diagnosis associated with the presentation includes (Contusion, fracture, dislocation) <Ann Marie Wilcox MD - Last Filed: 03/25/22 22:03> Independent Interpretation I performed an independent interpretation of an: Plain X-Ray <Ann Marie Wilcox MD - Last Filed: 03/25/22 22:03> Interpretation: My interpretation of the sacrum/coccyx, lumbar, hand/wrist, forearm x-ray s, no acute fracture <Ann Marie Wilcox MD - Last Filed: 03/25/22 22:03> Radiology Impression Discussion of test interpretation with radiology: I have reviewed the radiologist's reading. <Ann Marie Wilcox MD - Last Filed: 03/25/22 22:03> Radiologist Impression: Technique: 2 views the right forearm, 3 views of the right hand and wrist, frontal and 2 lateral views of the lumbosacral spine and 3 additional views of the sacrum/coccyx Findings: Right forearm: Bones are normal anatomic alignment with no acute fracture or dislocation seen. Right hand: Bones are normal anatomic alignment with no acute fracture or dislocation. No bony destructive lesions or periosteal reaction. No radiopaque foreign body or soft tissue gas. Lumbosacral spine: Bones are normal anatomic alignment with no acute fracture or spondylolisthesis. Vertebral body heights and disc heights are preserved. Paravertebral soft tissues and bowel gas pattern unremarkable. Sacrum/coccyx: Again the bones are normal anatomic alignment with no acute fracture or spondylolisthesis. No significant step-off identified. XR/XR forearm RT 2V Impression: No acute fracture or dislocation seen. <Ann Marie Wilcox MD - Last Filed: 03/25/22 22:03> Discharge Plan Discharge Clinical Impression: Fall, Contusion <MARBELLA Esposito - Last Filed: 03/26/22 11:42> Patient Disposition: Home, Self-Care <MARBELLA Esposito - Last Filed: 03/26/22 11:42> Instructions: Fall Prevention (ED) <MARBELLA Esposito - Last Filed: 03/26/22 11:42> Additional Instructions: Please follow-up with your primary care physician tomorrow. If you have any worsening or new symptoms, please return to the emergency room or call 911 <MARBELLA Esposito - Last Filed: 03/26/22 11:42> Prescriptions: New cyclobenzaprine 10 mg tablet 10 mg PO TID PRN (Reason: muscle spasm) Qty: 10 0RF ibuprofen 600 mg tablet 600 mg PO TID PRN (Reason: pain) Qty: 20 0RF No Action sucralfate 1 gram tablet 1 g PO QID Qty: 90 0RF ondansetron 4 mg tablet,disintegrating 4 mg PO ONCE PRN (Reason: nausea and vomiting) Qty: 7 0RF lansoprazole 30 mg capsule,delayed release(DR/EC) 30 mg PO BID Qty: 90 2RF famotidine 40 mg tablet 40 mg PO DAILY Qty: 30 5RF <MARBELLA Esposito - Last Filed: 03/26/22 11:42> Stand Alone Forms: Work/School Release <MARBELLA Esposito - Last Filed: 03/26/22 11:42> Interventions: ED Discharge Assessment Last Done: 03/25/22 22:25 <MARBELLA Esposito - Last Filed: 03/26/22 11:42> Discharge Date/Time: 03/25/22 22:26 <MARBELLA Esposito - Last Filed: 03/26/22 11:42>
== END 2022-03-25 22:26 | disposition home or self-care (01) ==
PROVIDERS: Emergency Provider Emergency Medicine; PCP Nurse Practitioner Primary Care
DX: T14.8XXA Other injury of unspecified body region, initial encounter (principal); W17.89XA Other fall from one level to another, initial encounter; M54.50 Low back pain, unspecified; M25.531 Pain in right wrist; M25.521 Pain in right elbow; Y93.89 Activity, other specified; Y92.018 Other place in single-family (private) house as the place of occurrence of the external cause; Y99.9 Unspecified external cause status
CPT/HCPCS: 72100; 72220; 73090; 73110; 73130; 99282; 99283

== ENCOUNTER 2022-03-27 06:29 | Emergency (ER) | payer MEDICAID, SELFPAY ==
--- NOTE | ~2022-03-27 | XR_ITS ---
EXAMINATION: XR CHEST CLINICAL INFORMATION: Shortness of breath COMPARISON: 04/13/2019 TECHNIQUE: Frontal view of the chest was obtained. FINDINGS: No significant abnormality is noted involving the heart, lungs, mediastinum, bony thorax or soft tissues. A calcified granuloma is again noted at the right apex. XR/XR chest 1V IMPRESSION: No acute intrathoracic disease.
[2022-03-27 06:45] VITALS: BP 135/83; PULSE 79; RESP 18; TEMP 36.7; O2SAT 98; BMI 23.0
--- NOTE | 2022-03-27 07:20 | PC.NURSE ---
pt alert and oriented, skin appropriate for ethnicity, respirations even and unlabored, pt reports around 0300 started vomiting and some left sided abd pain and headache and body aches, pain at 4/10. states that is covid positive
[2022-03-27 07:33] LABS: Hemoglobin 14.1 g/dl (14.0-18.0); Mean Corpuscular HGB Conc 33.6 g/dl (31.0-36.0); Mean Corpuscular Hemoglobin 27.6 pg (27.0-33.0); Mean Corpuscular Volume 82.4 fL (80.0-98.0); Mean Platelet Volume 10.4 fL (9.4-12.4); Platelet Count 193 X10*3/uL (160-400); Red Cell Distribution Width 13.2 % (11.0-16.0); White Blood Count 7.2 X10*3/uL (4.8-10.8)
[2022-03-27 07:45] LABS: COVID-19 Test Negative (Negative); IDNOW Serial# 16C4AD1C; IDNOW Serial# BCCEAD1C; Influenza A Negative (Negative); Influenza B2 Negative (Negative)
[2022-03-27 07:48] LABS: Alanine Aminotransferase 15 U/L (0-40); Albumin Level 4.1 g/dL (3.5-5.0); Alkaline Phosphatase 53 U/L (39-117); Anion Gap 10 (12-20); Aspartate Amino Transferase 15 U/L (5-37); Bilirubin Total 0.4 mg/dL (0.0-1.0); Blood Urea Nitrogen 13 mg/dL (9-16); Calcium 8.9 mg/dL (8.4-10.2); Carbon Dioxide 28 mmol/L (22-29); Chloride 106 mmol/L (96-108); Creatinine Clr Calc Pharmacy 108.4; Estimated Glomerular Filt Rate > 60; Glucose Random 91 mg/dL (60-115); Potassium 3.9 mmol/L (3.3-5.1); Sodium 140 mmol/L (135-145); Total Protein 6.7 g/dL (6.5-8.0)
[2022-03-27 07:56] LABS: Alanine Aminotransferase 14 U/L (0-40); Albumin Level 4.1 g/dL (3.5-5.0); Alkaline Phosphatase 53 U/L (39-117); Aspartate Amino Transferase 15 U/L (5-37); Bilirubin Direct 0.2 mg/dL (0.0-0.5); Bilirubin Total 0.5 mg/dL (0.0-1.0); Lipase 15 U/L (8-78); Total Protein 6.6 g/dL (6.5-8.0)
[2022-03-27 07:57] VITALS: BP 125/83; PULSE 68; RESP 20; TEMP 36.4; O2SAT 99
--- NOTE | 2022-03-27 08:19 | ED_ITS ---
HPI - General Adult General Chief complaint: General Medical Stated complaint: Vomiting and abdominal pain. Time Seen by Provider: 03/27/22 08:11 Source: patient History of Present Illness HPI narrative: Patient states he woke up at 03:00 with vomiting. He states he has a history of gastritis and esophagitis and occasionally gets pain but never vomiting like this. He is concerned because has COVID-19, diagnosed 1 week ago. He took a home test which was negative. No cough or dyspnea. No phlegm. No diarrhea at this point. No fevers or chills. No history of diverticulitis or other intra-abdominal abnormalities. No prior surgical history. Related Data Previous Rx's Medication Instructions Recorded famotidine 40 mg tablet 40 mg PO DAILY #30 tabs 02/17/20 ondansetron 4 mg disintegrating 4 mg PO ONCE PRN nausea and 01/09/21 tablet vomiting #7 tabs sucralfate 1 gram tablet 1 g PO QID #90 tabs 05/07/21 lansoprazole 30 mg capsule,delayed 30 mg PO BID #90 caps 05/17/21 release cyclobenzaprine 10 mg tablet 10 mg PO TID PRN muscle spasm #10 03/25/22 tabs ibuprofen 600 mg tablet 600 mg PO TID PRN pain #20 tabs 03/25/22 ondansetron 4 mg disintegrating 4 mg PO Q8H PRN nausea and 03/27/22 tablet vomiting #10 tabs Allergies Allergy/AdvReac Type Severity Reaction Status Date / Time No Known Drug Allergies Allergy Unknown Verified 01/09/21 12:15 Review of Systems Constitutional: Comments: No fevers or chills Cardiovascular: Comments: A chest pain Respiratory: Comments: No cough or dyspnea Gastrointestinal: Comments: Abdominal symptoms as described Genitourinary: Comments: No urinary symptoms PMFSH Past Medical History Medical History Acid reflux Esophagitis Hiatal hernia Ulcer Varicose vein of scrotum Surgical History (Updated 05/25/21 @ 14:42 by Layla Elizabeth) History of esophagogastroduodenoscopy (EGD) Hx of colonoscopy Family History Family History Unknown No problems noted. Social History Social History (Updated 02/10/22 @ 14:39 by Alexa Miranda PA-C) Household Members: Spouse and Children Alcohol intake: never Patient Tobacco Use Status: Never used Tobacco Smoked in Last 30 Days: No Use of substances other than those prescribed or required for medical reasons: No Advance Directives: No Advance Directives Information Provided: Yes Current occupation: [employer] Physical Exam ED Vital Signs: Vital Signs - 24 hr 03/27/22 06:45 03/27/22 07:57 Temperature 98.0 F 97.6 F Pulse Rate 79 68 Respiratory Rate 18 20 Blood Pressure 135/83 125/83 Pulse Oximetry 98 99 Oxygen Delivery Method Room Air Room Air BMI result Body Mass Index 23.0 Const Other: Awake alert. No acute distress. Vital signs stable Resp Other: Clear and equal bilaterally without wheezes rales or rhonchi Cardio Other: Regular rate and rhythm without murmurs rubs gallops GI Other: Patient points to the left mid abdomen as area of discomfort. But his abdominal exam is soft nontender nondistended with normoactive bowel sounds. No guarding no rebound. He states this is the pain he has gotten in the past with flares of gastritis. He takes omeprazole but vomited today. Skin Other: Warm pink and dry without rash Neuro Other: Nonfocal Course Course Course Narrative: 09:08. Re-evaluation shows patient is feeling much better. Re-examination of abdomen shows no abdominal tenderness. He denies nausea. Stable for discharge home Medications Administered Generic Name Dose Route Start Last Admin Trade Name Freq PRN Reason Stop Dose Admin Sodium Chloride 1,000 mls @ 999 mls/hr 03/27/22 08:30 03/27/22 08:32 Ns IV 03/27/22 09:30 999 mls/hr .[id number] ANTONIO Administration Discontinued Medications Generic Name Dose Route Start Last Admin Trade Name Freq PRN Reason Stop Dose Admin Ondansetron HCl 4 mg 03/27/22 08:19 03/27/22 08:33 Ondansetron Hcl 4 Mg/2 Ml Vial IVPUSH 03/27/22 08:20 4 mg ONCE ONE Administration Medical Decision Making Medical Decision Making [facility] Narrative: Patient with vomiting and abdominal discomfort. He describes his discomfort as left lower quadrant. Recent viral exposure however. He does not have tenderness. His lab work is completely normal including a norm al white count at this point. Will treat him for now symptomatic with IV fluids and IV Zofran. Will re- evaluate. At this point I do not think we need to CT scan to rule out diverticulitis unless symptoms do not improve or he is tender on re-evaluation. Most likely has a viral syndrome. Lab Data 03/27/22 07:25 03/27/22 07:25 Labs: Lab Results 03/27/22 03/27/22 03/27/22 Range/Units 07:17 07:17 07:25 WBC 7.2 (4.8-10.8) X10*3/uL RBC 5.10 (4.60-5.80) X10*6/uL Hgb 14.1 (14.0-18.0) g/dl Hct 42.0 (42.0-52.0) % MCV 82.4 (80.0-98.0) fL MCH 27.6 (27.0-33.0) pg MCHC 33.6 (31.0-36.0) g/dl RDW 13.2 (11.0-16.0) % Plt Count 193 (160-400) X10*3/uL MPV 10.4 (9.4-12.4) fL Absolute Nucleated RBC 0.000 (0.0-0.012) X10*3/uL Nucleated RBC % (auto) 0.0 (0.0-0.2) /100WBC Sodium (135-145) mmol/L Potassium (3.3-5.1) mmol/L Chloride (96-108) mmol/L Carbon Dioxide (22-29) mmol/L Anion Gap (12-20) BUN (9-16) mg/dL Creatinine (0.5-1.4) mg/dL Estim Creat Clear Calc Estimated GFR Random Glucose (60-115) mg/dL Calcium (8.4-10.2) mg/dL Total Bilirubin (0.0-1.0) mg/dL Direct Bilirubin (0.0-0.5) mg/dL AST (5-37) U/L ALT (0-40) U/L Alkaline Phosphatase (39-117) U/L Total Protein (6.5-8.0) g/dL Albumin (3.5-5.0) g/dL Lipase (8-78) U/L COVID-19 (JARETH) Negative (Negative) COVID-19 Clin Com See Note Influenza Type A (BA) Negative (Negative) Influenza Type B (BA) Negative (Negative) Influenza A & B Note See Note 03/27/22 03/27/22 Range/Units 07:25 07:25 WBC (4.8-10.8) X10*3/uL RBC (4.60-5.80) X10*6/uL Hgb (14.0-18.0) g/dl Hct (42.0-52.0) % MCV (80.0-98.0) fL MCH (27.0-33.0) pg MCHC (31.0-36.0) g/dl RDW (11.0-16.0) % Plt Count (160-400) X10*3/uL MPV (9.4-12.4) fL Absolute Nucleated RBC (0.0-0.012) X10*3/uL Nucleated RBC % (auto) (0.0-0.2) /100WBC Sodium 140 (135-145) mmol/L Potassium 3.9 (3.3-5.1) mmol/L Chloride 106 (96-108) mmol/L Carbon Dioxide 28 (22-29) mmol/L Anion Gap 10 L (12-20) BUN 13 (9-16) mg/dL Creatinine 0.93 (0.5-1.4) mg/dL Estim Creat Clear Calc 108.4 Estimated GFR > 60 Random Glucose 91 (60-115) mg/dL Calcium 8.9 (8.4-10.2) mg/dL Total Bilirubin 0.4 0.5 (0.0-1.0) mg/dL Direct Bilirubin 0.2 (0.0-0.5) mg/dL AST 15 15 (5-37) U/L ALT 15 14 (0-40) U/L Alkaline Phosphatase 53 53 (39-117) U/L Total Protein 6.7 6.6 (6.5-8.0) g/dL Albumin 4.1 4.1 (3.5-5.0) g/dL Lipase 15 (8-78) U/L COVID-19 (JARETH) (Negative) COVID-19 Clin Com Influenza Type A (BA) (Negative) Influenza Type B (BA) (Negative) Influenza A & B Note Discharge Plan Discharge Clinical Impression: Gastroenteritis Patient Disposition: Home, Self-Care Instructions: Acute Nausea and Vomiting (ED) Additional Instructions: Drink plenty of liquids. Prescriptions: New ondansetron 4 mg tablet,disintegrating 4 mg PO Q8H PRN (Reason: nausea and vomiting) Qty: 10 0RF No Action sucralfate 1 gram tablet 1 g PO QID Qty: 90 0RF ondansetron 4 mg tablet,disintegrating 4 mg PO ONCE PRN (Reason: nausea and vomiting) Qty: 7 0RF cyclobenzaprine 10 mg tablet 10 mg PO TID PRN (Reason: muscle spasm) Qty: 10 0RF ibuprofen 600 mg tablet 600 mg PO TID PRN (Reason: pain) Qty: 20 0RF lansoprazole 30 mg capsule,delayed release(DR/EC) 30 mg PO BID Qty: 90 2RF famotidine 40 mg tablet 40 mg PO DAILY Qty: 30 5RF
[2022-03-27] MEDS: 0.9 % Sodium Chloride 1,000 ML 999 ML IV (08:32)
[2022-03-27] MEDS: ondansetron HCL 4 MG/2 ML VIAL IVPUSH (08:33)
== END 2022-03-27 09:44 | disposition home or self-care (01) ==
PROVIDERS: Emergency Provider Emergency Medicine; PCP Nurse Practitioner Primary Care
DX: K52.9 Noninfective gastroenteritis and colitis, unspecified (principal); R11.10 Vomiting, unspecified; R10.32 Left lower quadrant pain; Z20.822 Contact with and (suspected) exposure to COVID-19; K21.9 Gastro-esophageal reflux disease without esophagitis; Z79.899 Other long term (current) drug therapy
CPT/HCPCS: 36415; 71045; 80053; 80076; 82248; 83690; 85027; 87502; 87635; 96361; 96374; 99284; J2405

== ENCOUNTER → 2022-04-25 14:13 | Outpatient (BNVA) | payer MEDICAID, SELFPAY | PROVIDERS: PCP Nurse Practitioner Primary Care; Visit Provider Physician Assistant | DX: K21.9 Gastro-esophageal reflux disease without esophagitis (principal); Z79.899 Other long term (current) drug therapy | CPT/HCPCS: 99212 ==

== ENCOUNTER 2022-05-09 09:13 | Emergency (ER) | payer MEDICAID, SELFPAY ==
[2022-05-09 09:49] VITALS: BP 120/71; PULSE 74; RESP 18; TEMP 36.6; O2SAT 98; BMI 23.0
[2022-05-09 10:59] LABS: MANUAL DIFF FLAG NO
[2022-05-09 11:08] LABS: Basophils Absolute Auto 0.1 X10*3/uL (0.0-0.2); Basophils Percent Auto 0.8 % (0-2); Eosinophils Absolute Auto 0.2 X10*3/uL (0.0-0.4); Eosinophils Percent Auto 2.7 % (0-4); Hemoglobin 15.4 g/dl (14.0-18.0); Imm Gran Abs Auto 0.02 X10*3/uL (0.00-0.03); Imm Gran Pct Auto 0.3 % (0.0-0.4); Lymphocytes Absolute Auto 1.1 X10*3/uL (1.2-4.9); Lymphocytes Percent Auto 13.4 % (20-40); Mean Corpuscular HGB Conc 32.8 g/dl (31.0-36.0); Mean Corpuscular Volume 85.5 fL (80.0-98.0); Mean Platelet Volume 10.4 fL (9.4-12.4); Monocytes Absolute Auto 0.6 X10*3/uL (0.1-1.2); Monocytes Percent Auto 7.6 % (2-11); Neutrophils Absolute Auto 5.9 x10*3/uL (2.0-8.3); Neutrophils Percent Auto 75.2 % (45-73); Platelet Count 211 X10*3/uL (160-400); Red Cell Distribution Width 13.4 % (11.0-16.0); White Blood Count 7.8 X10*3/uL (4.8-10.8)
[2022-05-09 11:13] LABS: Anion Gap 11 (12-20); Blood Urea Nitrogen 15 mg/dL (9-16); Calcium 8.6 mg/dL (8.4-10.2); Carbon Dioxide 28 mmol/L (22-29); Chloride 106 mmol/L (96-108); Creatinine Clr Calc Pharmacy 106.1; Estimated Glomerular Filt Rate > 60; Glucose Random 68 mg/dL (60-115); Potassium 4.6 mmol/L (3.3-5.1); Sodium 140 mmol/L (135-145)
[2022-05-09 11:26] LABS: COVID-19 Test Negative (Negative); IDNOW Serial# 55D5AD1C
--- NOTE | 2022-05-09 16:55 | ED_ITS ---
HPI - Back Pain/Injury General Chief Complaint: Nausea/Vomiting/Diarrhea Stated Complaint: low back pain/vomit Time Seen by Provider: 05/09/22 16:44 Source: patient Mode of arrival: ambulatory History of Present Illness HPI Narrative: 41-year-old male with a past medical history of GERD, hiatal hernia, sciatica, presenting to the ED complaining of left lower back/buttock pain radiating down left lower extremity x 4 days. Reports 1 episode of nausea/nonbloody emesis. 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 Denies known injury/trauma or fall, weakness, urine incontinence/retention, fever, diarrhea, abdominal pain, melena/bloody stools, dysuria/hematuria MD elicited complaint: back pain Onset (ago): day(s) Related Data Previous Rx's Medication Instructions Recorded cyclobenzaprine 10 mg tablet 10 mg PO TID PRN muscle spasm #10 03/25/22 tabs ibuprofen 600 mg tablet 600 mg PO TID PRN pain #20 tabs 03/25/22 lansoprazole 30 mg capsule,delayed 30 mg PO ONCE 30 days #30 caps 04/25/22 release acetaminophen 500 mg tablet 500 mg PO Q6H PRN fever or pain 05/09/22 (Tylenol Extra Strength) #14 tabs cyclobenzaprine 5 mg tablet 5 mg PO Q8H PRN pain (scale score 05/09/22 7-10) 5 days #14 tabs lidocaine 5 % topical patch 1 patch topical DAILY PRN pain #30 05/09/22 (Lidoderm) ea naproxen 500 mg tablet 500 mg PO BID PRN pain 10 days #20 05/09/22 tabs Allergies Allergy/AdvReac Type Severity Reaction Status Date / Time No Known Drug Allergies Allergy Unknown Verified 01/09/21 12:15 Review of Systems Review of Systems: Constitutional: No Fever, No Chills ENT/Mouth: No Ear Pain, No Nasal Congestion, No Sinus Pain, No Hoarseness, No sore throat, No Rhinorrhea, No Swallowing Difficulty Cardiovascular: No Chest Pain, No SOB Respiratory: No Cough, No Sputum, No Wheezing Gastrointestinal: + Nausea, + Vomiting x1, No Diarrhea, No Constipation, No Abdominal pain Genitourinary: No Dysuria, No Urinary Frequency, No Hematuria, No Urinary Incontinence/retention, No Flank Pain Musculoskeletal: + joint pain, + Myalgias, No Joint Swelling Skin: No Skin Lesions, No rash Neuro: No Weakness, No Numbness, + Paresthesias Yes all other systems are reviewed and are negative Constitutional: Constitutional: Reports as per HPI Neurologic: Denies Sensory deficit (Neuro) [facility] Past Medical History Attestation statement: The following information was validated with the patient. Medical History Acid reflux Esophagitis Hiatal hernia Ulcer Varicose vein of scrotum Surgical History History of esophagogastroduodenoscopy (EGD) Hx of colonoscopy Family History Family History Unknown No problems noted. Social History Social History Household Members: Spouse and Children Alcohol intake: never Patient Tobacco Use Status: Never used Tobacco Advance Directives: No Current occupation: [employer] Physical Exam Vital Signs: Vital Signs: Last Vital Signs Temp 98.0 F 05/09/22 17:07 Pulse 68 05/09/22 17:07 Resp 12 05/09/22 17:07 BP 119/72 05/09/22 17:07 Pulse Ox 98 05/09/22 17:07 O2 Del Method 05/09/22 17:07 BMI result Body Mass Index 23.0 Const: General: cooperative, healthy appearing and no acute distress Or ientation/consciousness: patient oriented x3 Limitations: no limitations HEENT: Head: Yes normal to inspection and Yes atraumatic Ears: hearing grossly normal bilaterally General nose exam: Normal external nose present Face and sinus: Yes normal facial exam Eyes: General: appearance normal, both eyes and all related structures EOM: EOMs intact bilaterally Neck: Other: No midline cervical spinous tenderness Neck: Yes normal visual inspection and Yes no meningeal signs Resp: Effort & Inspection: normal respiratory effort and no respiratory distress Auscultation: clear to auscultation bilaterally Cardio: Rate: regular rate Heart sounds: S1 normal heart sound present and S2 normal heart sound present GI: Inspection: Yes normal to inspection Palpation (GI): Soft to palpation, nontender, no guarding and not rigid : General: Yes no CVA tenderness Back/Spine/Pelvis: Other: No midline thoracic/lumbar spinous tenderness/step-off or deformity. + L sided lower lumbar MSK/buttock tenderness to palpation Back: no CVA tenderness Skin: Rashes: no rashes Wounds: no wounds Neuro: Other: Strength intact throughout. No saddle anesthesia. Sensation intact to light touch. Neurovascular intact distally General: patient oriented x3, tone normal, moves all extremities, no meningeal signs and no focal motor deficits Gait exam (Neuro): Normal gait present Motor exam (neuro): 5/5 motor strength present throughout Sensory Exam: No Sensory deficit (Neuro) Extrem: General: Yes normal to inspection Course Course Course Narrative: Labs unremarkable Results discussed with patient including worrisome signs and symptoms and strict return precautions, and when to return to the emergency department. They verbalized understanding and feel safe for discharge at this time. Medications Administered Discontinued Medications Generic Name Dose Route Start Last Admin Trade Name Freq PRN Reason Stop Dose Admin Cyclobenzaprine HCl 10 mg 05/09/22 16:55 05/09/22 17:09 Cyclobenzaprine Hcl 10 Mg Tablet PO 05/09/22 16:56 10 mg ONCE ONE Administration Lidocaine 1 patch 05/09/22 16:55 05/09/22 17:09 Lidocaine 4 % Patch Adh..Patch TRANSDERMA 05/09/22 16:56 1 patch ONCE ONE Administration Protocol Naproxen 500 mg 05/09/22 16:55 05/09/22 17:09 Naproxen 500 Mg Tablet PO 05/09/22 16:56 500 mg ONCE ONE Administration Medical Decision Making Medical Decision Making [facility] Narrative: 41-year-old male with a past medical history of GERD, hiatal hernia, sciatica, presenting to the ED complaining of left lower back/buttock pain radiating down left lower extremity x 4 days. On exam vital signs stable, NAD, nontoxic appearing, no midline spinous tenderness throughout or red flag symptoms. Ambulating with steady gait. No CVAT. Concern for MSK pain/strain and sciatica. Low suspicion for pyelo/renal stone, intra-abdominal process or UTI. Unlikely cauda equina/cord compression or epidural abscess Plan: Labs ordered previously, UA, Pain control Please refer to course for remaining clinical decision making, interpretation of labs/imaging results, and discussions with consultants and/or family members. Differential Diagnosis Differential Diagnoses: The differential diagnosis associated with the presentation includes As above Lab Data MDM Lab Attestation statement: I reviewed the patient's lab results. 05/09/22 10:52 05/09/22 10:52 Labs: Lab Results 05/09/22 05/09/22 05/09/22 Range/Units 10:52 10:52 10:52 WBC 7.8 (4.8-10.8) X10*3/uL RBC 5.50 (4.60-5.80) X10*6/uL Hgb 15.4 (14.0-18.0) g/dl Hct 47.0 (42.0-52.0) % MCV 85.5 (80.0-98.0) fL MCH 28.0 (27.0-33.0) pg MCHC 32.8 (31.0-36.0) g/dl RDW 13.4 (11.0-16.0) % Plt Count 211 (160-400) X10*3/uL MPV 10.4 (9.4-12.4) fL Immature Gran % (Auto) 0.3 (0.0-0.4) % Neut % (Auto) 75.2 H (45-73) % Lymph % (Auto) 13.4 L (20-40) % Preble % (Auto) 7.6 (2-11) % Eos % (Auto) 2.7 (0-4) % Baso % (Auto) 0.8 (0-2) % Lymph # (Auto) 1.1 L (1.2-4.9) X10*3/uL Pre[place] # (Auto) 0.6 (0.1-1.2) X10*3/uL Eos # (Auto) 0.2 (0.0-0.4) X10*3/uL Baso # (Auto) 0.1 (0.0-0.2) X10*3/uL Abs Immat Gran (auto) 0.02 (0.00-0.03) X10*3/uL Absolute Neuts (auto) 5.9 (2.0-8.3) x10*3/uL Absolute Nucleated RBC 0.000 (0.0-0.012) X10*3/uL Nucleated RBC % (auto) 0.0 (0.0-0.2) /100WBC Sodium 140 (135-145) mmol/L Potassium 4.6 (3.3-5.1) mmol/L Chloride 106 (96-108) mmol/L Carbon Dioxide 28 (22-29) mmol/L Anion Gap 11 L (12-20) BUN 15 (9-16) mg/dL Creatinine 0.95 (0.5-1.4) mg/dL Estim Creat Clear Calc 106.1 Estimated GFR > 60 Random Glucose 68 (60-115) mg/dL Calcium 8.6 (8.4-10.2) mg/dL COVID-19 (JARETH) Negative (Negative) COVID-19 Clin Com See Note Radiology Impression Discussion of test interpretation with radiology: I have reviewed the radiologist's reading. External Record Review External record reviewed: Prior outpatient labs and Prior outpatient radiology Prescription Management I considered prescription management with: Pain Medication Discharge Plan Discharge Clinical Impression: Sciatica Patient Disposition: Home, Self-Care Instructions: Sciatica (ED) Additional Instructions: Your pain is likely musculoskeletal Flexeril is a muscle relaxer, take at night as it makes you drowsy, do not drive, drink alcohol, or operate machinery while taking it Naproxen as an anti-inflammatory / pain medication, take with food Lidoderm patches are numbing patches, apply to painful area In addition take Tylenol at home If symptoms persist or worsen, pain becomes unbearable, you developed urinary retention or incontinence, or weakness return to the ED Es probable que bernabe dolor sea musculoesquel?seth Flexeril es un relajante muscular, t?linn por la noche ya que te adormece, no conduzcas, bebas alcohol ni operes maquinaria mientras lo blair. Naproxeno leidy medicamento antiinflamatorio/analg?sico, t?young con alimentos Los parches de Lidoderm son parches anest?sicos, se aplican en el ?rosalie dolorida Adem?s ani Tylenol en casa Si los s?ntomas persisten o empeoran, el dolor se vuelve insoportable, desarroll? retenci?n urinaria o incontinencia, o debilidad, regrese al servicio de urgencias. Prescriptions: New acetaminophen [Tylenol Extra Strength] 500 mg tablet 500 mg PO Q6H PRN (Reason: fever or pain) Qty: 14 0RF lidocaine [Lidoderm] 5 % adhesive patch,medicated 1 patch topical DAILY MDD remove after 12 hours PRN (Reason: pain) Qty: 30 0RF Rx Instructions: leave on most painful area for up to 12 hrs naproxen 500 mg tablet 500 mg PO BID PRN (Reason: pain) 10 Days Qty: 20 0RF cyclobenzaprine 5 mg tablet 5 mg PO Q8H PRN (Reason: pain (scale score 7-10)) 5 Days Qty: 14 0RF No Action cyclobenzaprine 10 mg tablet 10 mg PO TID PRN (Reason: muscle spasm) Qty: 10 0RF ibuprofen 600 mg tablet 600 mg PO TID PRN (Reason: pain) Qty: 20 0RF lansoprazole 30 mg capsule,delayed release(DR/EC) 30 mg PO ONCE 30 Days Qty: 30 6RF Referrals: Blanca Quinn, BICYCLE SERVICE TECHNICIAN [Primary Care Provider] - 5 days Print Language: [place]
[2022-05-09 17:07] VITALS: BP 119/72; PULSE 68; RESP 12; TEMP 36.7; O2SAT 98
[2022-05-09] MEDS: NaPROXEN 500 MG TABLET PO (17:09)
[2022-05-09] MEDS: Cyclobenzaprine HCl 10 MG TABLET PO (17:09)
[2022-05-09] MEDS: Lidocaine 4 % Patch ADH..PATCH 1 PATCH TRANSDERMA (17:09)
[2022-05-09 17:27] VITALS: BP 126/83; PULSE 74; RESP 16; TEMP 36.7; O2SAT 97
--- NOTE | 2022-05-09 17:27 | MHC.EDTECH ---
this pct just assumed care of pt ,rounding done ,vitals sign taken ,pt said he wants to go home ,provider aware .
--- NOTE | 2022-05-09 17:36 | PC.NURSE ---
Pt aox4 resting at bedside in no apparent distress. Discharge instructions reviewed with pt. Pt verbalizes understanding.
== END 2022-05-09 17:36 | disposition home or self-care (01) ==
PROVIDERS: Emergency Provider Emergency Medicine; PCP Nurse Practitioner Primary Care
DX: M54.42 Lumbago with sciatica, left side (principal); Z79.899 Other long term (current) drug therapy; Z20.822 Contact with and (suspected) exposure to COVID-19; Z20.828 Contact with and (suspected) exposure to other viral communicable diseases
CPT/HCPCS: 36415; 80048; 85025; 87635; 99283; 99284

== ENCOUNTER 2022-10-17 06:11 | Emergency (ER) | payer MEDICAID, SELFPAY ==
[2022-10-17 06:21] VITALS: BP 138/80; PULSE 65; RESP 14; TEMP 36.6; O2SAT 97; BMI 23.7
--- NOTE | 2022-10-17 06:41 | PC.NURSE ---
Pt aox4. Reports generalized body, headache, chills, and nausea x 2 days and being exposed to family members +covid. Pain 08/17. Labs drawn and sent. 20G IV line placed on the R FA. Pt tolerated well. Unable to provide a urine sample at this time. Pending lab results and physician mandy. Pt aware.
[2022-10-17 06:43] LABS: Basophils Absolute Auto 0.1 X10*3/uL (0.0-0.2); Basophils Percent Auto 0.8 % (0-2); Eosinophils Absolute Auto 0.2 X10*3/uL (0.0-0.4); Hematocrit 44.8 % (42.0-52.0); Hemoglobin 15.2 g/dl (14.0-18.0); Imm Gran Abs Auto 0.01 X10*3/uL (0.00-0.03); Imm Gran Pct Auto 0.2 % (0.0-0.4); Lymphocytes Absolute Auto 1.5 X10*3/uL (1.2-4.9); Lymphocytes Percent Auto 23.5 % (20-40); MANUAL DIFF FLAG NO; Mean Corpuscular HGB Conc 33.9 g/dl (31.0-36.0); Mean Corpuscular Hemoglobin 28.1 pg (27.0-33.0); Mean Corpuscular Volume 82.8 fL (80.0-98.0); Mean Platelet Volume 10.2 fL (9.4-12.4); Monocytes Absolute Auto 0.7 X10*3/uL (0.1-1.2); Monocytes Percent Auto 10.6 % (2-11); Neutrophils Absolute Auto 3.9 x10*3/uL (2.0-8.3); Neutrophils Percent Auto 61.9 % (45-73); Platelet Count 181 X10*3/uL (160-400); Red Blood Count 5.41 X10*6/uL (4.60-5.80); Red Cell Distribution Width 13.2 % (11.0-16.0); White Blood Count 6.4 X10*3/uL (4.8-10.8)
--- NOTE | 2022-10-17 06:51 | ED.GENADULT ---
HPI - General Adult General Chief complaint: General Medical Stated complaint: body/bone pain Time Seen by Provider: 10/17/22 06:45 Source: patient and historic interpreter Mode of arrival: ambulatory Limitations: language barrier History of Present Illness HPI narrative: Patient is a 41 year old assigned male at with a history of esophagitis presenting to the emergency department today feeling generally unwell. Patient states that over the last 2 days he has felt generally unwell with nausea, body aches, a headache, and being tired. Patient denies any dizziness, lightheadedness, abdominal pain, vomiting, fever, blurry vision, double vision, loss of vision, chest pain, difficulty breathing, shortness of breath, back pain, night sweats, pain with urination, increased urinary frequency, increased urinary urgency, blood in his urine or stool, syncope or a near syncopal episode, recent trauma or falls, bowel incontinence, bladder incontinence, bowel retention, bladder retention, or any other complaints at this time. Onset (ago): day(s) (2) Severity: mild Severity scale (1-10): 3 Relieving factors: none Exacerbating factors: none Associated symptoms: headaches Treatments prior to arrival: none Related Data Previous Rx's Medication Instructions Recorded cyclobenzaprine 10 mg tablet 10 mg PO TID PRN muscle spasm #10 03/25/22 tabs ibuprofen 600 mg tablet 600 mg PO TID PRN pain #20 tabs 03/25/22 lansoprazole 30 mg capsule,delayed 30 mg PO ONCE 30 days #30 caps 04/25/22 release acetaminophen 500 mg tablet 500 mg PO Q6H PRN fever or pain 05/09/22 (Tylenol Extra Strength) #14 tabs cyclobenzaprine 5 mg tablet 5 mg PO Q8H PRN pain (scale score 05/09/22 7-10) 5 days #14 tabs lidocaine 5 % topical patch 1 patch topical DAILY PRN pain #30 05/09/22 (Lidoderm) ea naproxen 500 mg tablet 500 mg PO BID PRN pain 10 days #20 05/09/22 tabs ondansetron 4 mg disintegrating 4 mg PO Q8H 3 days #9 tabs 10/17/22 tablet Allergies Allergy/AdvReac Type Severity Reaction Status Date / Time No Known Drug Allergies Allergy Unknown Verified 01/09/21 12:15 Review of Systems Constitutional: Constitutional: Reports no additional constitutional complaints, Reports body ache(s), Denies chills, Denies fever(s), Reports headache(s) and Denies night sweats Eyes: Eyes: Reports no additional eye complaints, Denies blurry vision, Denies change in vision, Denies diplopia, Denies eye discharge, Denies loss of vision and Denies eye pain ENT: Denies dizziness and Reports headache(s) Cardiovascular: Cardiovascular: Reports no additional cardiovascular complaints, Denies chest pain, Denies lightheadedness, Denies Loss of Consciousness and Denies dyspnea Respiratory: Respiratory: Reports no additional respiratory complaints and Denies dyspnea Gastrointestinal: Gastrointestinal: Reports no additional gastrointestinal complaints, Denies abdominal pain, Denies melena, Denies hematochezia, Denies change in bowel habits, Denies change in stool character and Reports nausea Genitourinary: Genitourinary: Reports no additional male genitourinary complaints, Denies hematuria, Denies oliguria, Denies difficulty urinating, Denies dysuria, Denies urinary frequency, Denies urinary hesitancy, Denies urinary incontinence and Denies urinary urgency Musculoskeletal: Musculoskeletal: Reports no additional musculoskeletal complaints, Denies numbness and Denies tingling Neurologic: Denies dizziness, Reports headache(s), Denies loss of vision, Denies numbness and Denies tingling Psychiatric: Psychiatric: Reports no additional psychiatric complaints Endocrine: Endocrine: Reports no additional endocrine complaints Hematologic/Lymphatic: Hematologic/Lymphatic: Reports no additional hematologic/lymphatic complaints Allergic/Immunologic: Allergic/Immunologic: Reports no additional allergic/immunologic complaints [facility] Past Medical History Attestation statement: The following information was validated with the patient. Source: old records reviewed and nursing notes reviewed Medical History Acid reflux Esophagitis Hiatal hernia Ulcer Varicose vein of scrotum Surgical History History of esophagogastroduodenoscopy (EGD) Hx of colonoscopy Family History Family History Unknown No problems noted. Social History Social History Household Members: Spouse and Children Alcohol intake: never Patient Tobacco Use Status: Never used Tobacco Smoked in Last 30 Days: No Use of substances other than those prescribed or required for medical reasons: No Advance Directives: No Advance Directives Information Provided: Yes Current occupation: [employer] Physical Exam ED Vital Signs: Vital Signs - 24 hr 10/17/22 06:21 10/17/22 08:26 10/17/22 09:54 Temperature 97.9 F 97.9 F 97.9 F Pulse Rate 65 69 80 Respiratory Rate 14 17 16 Blood Pressure 138/80 123/76 123/80 Pulse Oximetry 97 100 98 Oxygen Delivery Method Room Air Room Air Room Air BMI result Body Mass Index 23.7 Const General: cooperative, no acute distress, alert and awake Nutritional Appearance: well nourished Orientation/consciousness: patient oriented x3 Limitations: no limitations HENMT Head: Yes normal to inspection and Yes atraumatic Ears: hearing grossly normal bilaterally and external ears normal General nose exam: Normal external nose present, no nasal discharge noted and no epistaxis Face and sinus: Yes normal facial exam, No abrasion and No laceration Mouth: Normal oral and palatal mucosa present, no drooling and no muffled voice Eyes General: appearance normal, both eyes and all related structures Periorbital: periorbital findings normal Eyelids: Yes eyelids normal Conjunctivae: conjunctivae normal Pupils: Equal, round and reactive pupils present EOM: EOMs intact bilaterally Neck Neck: Yes normal visual inspection, Yes full ROM and Yes no lymphadenopathy Chest Chest palpation & inspection: normal inspection of the chest Resp Effort & Inspection: normal respiratory effort and able to speak in complete sentences Auscultation: clear to auscultation bilaterally Cardio Rate: regular rate Rhythm: regular rhythm GI Inspection: Yes normal to inspection Palpation (GI): Soft to palpation, not firm, nontender and no guarding Neuro General: patient oriented x3 and moves all extremities Cranial nerves: Yes Equal, round and reactive pupils present Cognition (Neuro): normal cognition Motor exam (neuro): 5/5 motor strength present throughout Sensory Exam: Normal double simultaneous stimulation for sensation Coordination: [id number] test normal Extrem General: Yes normal to inspection, Yes full ROM and Yes capillary refill normal Psych Appearance: grossly normal Mental Status: mental status grossly normal Affect: normal affect Attitude: cooperative Thought process: Normal thought process present Thought content: Normal thought content present Insight: Good insight present (Psych) Medications Administered Discontinued Medications Generic Name Dose Route Start Last Admin Trade Name Jose PRN Reason Stop Dose Admin Ondansetron HCl 4 mg 10/17/22 09:05 10/17/22 09:52 Ondansetron Hcl 4 Mg/2 Ml Vial IVPUSH 10/17/22 09:06 4 mg ONCE ONE Administration Medical Decision Making Medical Decision Making [facility] Narrative: Patient is a 41 year old assigned male at with a history of esophagitis presenting to the emergency department today feeling generally unwell. Patient's physical exam was unremarkable. Patient's blood work was unremarkable. Patient's urine showed no acute process. Patient's COVID-19 swab was negative. I explained my physical exam findings as well as all test results to the patient. I answered all questions asked by the patient. I stressed the importance of the patient taking his medication as prescribed. I stressed the importance of the patient following up with his primary care provider. I stressed the importance of the patient returning to the emergency department immediately if his symptoms were to worsen or if he were to develop any dizziness, shortness of breath, difficulty breathing, chest pain, blurry vision, loss of vision, nausea, vomiting, abdominal pain, fever, chills, back pain, or any other complaints. Patient verbalized agreement and understanding with this treatment plan and discharge. Differential Diagnosis Differential Diagnoses: The differential diagnosis associated with the presentation includes Viral illness Gastroenteritis Nausea Headache Admission/Observation Consideration of admission/observation: Escalation of care including admission/observation considered Patient would have been admitted to the hospital had his work up had any findings where hospital admission was appropriate and his clinical presentation warranted hospital admission. Lab Data [facility] Lab Attestation statement: I reviewed the patient's lab results. My interpretation of these studies and their corresponding values is that they are grossly normal. 10/17/22 06:30 10/17/22 06:30 Labs: Lab Results 10/17/22 10/17/22 10/17/22 Range/Units 06:29 06:30 06:30 WBC 6.4 (4.8-10.8) X10*3/uL RBC 5.41 (4.60-5.80) X10*6/uL Hgb 15.2 (14.0-18.0) g/dl Hct 44.8 (42.0-52.0) % MCV 82.8 (80.0-98.0) fL MCH 28.1 (27.0-33.0) pg MCHC 33.9 (31.0-36.0) g/dl RDW 13.2 (11.0-16.0) % Plt Count 181 (160-400) X10*3/uL MPV 10.2 (9.4-12.4) fL Immature Gran % (Auto) 0.2 (0.0-0.4) % Neut % (Auto) 61.9 (45-73) % Lymph % (Auto) 23.5 (20-40) % [place] % (Auto) 10.6 (2-11) % Eos % (Auto) 3.0 (0-4) % Baso % (Auto) 0.8 (0-2) % Lymph # (Auto) 1.5 (1.2-4.9) X10*3/uL [place] # (Auto) 0.7 (0.1-1.2) X10*3/uL Eos # (Auto) 0.2 (0.0-0.4) X10*3/uL Baso # (Auto) 0.1 (0.0-0.2) X10*3/uL Abs Immat Gran (auto) 0.01 (0.00-0.03) X10*3/uL Absolute Neuts (auto) 3.9 (2.0-8.3) x10*3/uL Absolute Nucleated RBC 0.000 (0.0-0.012) X10*3/uL Nucleated RBC % (auto) 0.0 (0.0-0.2) /100WBC Sodium 141 (135-145) mmol/L Potassium 4.0 (3.3-5.1) mmol/L Chloride 106 (96-108) mmol/L Carbon Dioxide 28 (22-29) mmol/L Anion Gap 11 L (12-20) BUN 11 (9-16) mg/dL Creatinine 1.00 (0.5-1.4) mg/dL Estim Creat Clear Calc 101.4 Estimated GFR > 60 Random Glucose 94 (60-115) mg/dL Calcium 8.9 (8.4-10.2) mg/dL Total Bilirubin 0.4 (0.0-1.0) mg/dL AST 14 (5-37) U/L ALT 18 (0-40) U/L Alkaline Phosphatase 54 (39-117) U/L Total Protein 7.3 (6.5-8.0) g/dL Albumin 4.0 (3.5-5.0) g/dL Lipase 17 (8-78) U/L Urine Color Urine Appearance Urine pH (5.0-9.0) Ur Specific [place] (1.005-1.025) Urine Protein (Neg-Trace) mg/dL Urine Glucose (UA) (Negative) mg/dL Urine Ketones (Negative) mg/dL Urine Blood (Negative) Urine Nitrite (Negative) Ur Leukocyte Esterase (Negative) COVID-19 (JARETH) Negative (Negative) COVID-19 Clin Com See Note 10/17/22 Range/Units 08:31 WBC (4.8-10.8) X10*3/uL RBC (4.60-5.80) X10*6/uL Hgb (14.0-18.0) g/dl Hct (42.0-52.0) % MCV (80.0-98.0) fL MCH (27.0-33.0) pg MCHC (31.0-36.0) g/dl RDW (11.0-16.0) % Plt Count (160-400) X10*3/uL MPV (9.4-12.4) fL Immature Gran % (Auto) (0.0-0.4) % Neut % (Auto) (45-73) % Lymph % (Auto) (20-40) % [place] % (Auto) (2-11) % Eos % (Auto) (0-4) % Baso % (Auto) (0-2) % Lymph # (Auto) (1.2-4.9) X10*3/uL [place] # (Auto) (0.1-1.2) X10*3/uL Eos # (Auto) (0.0-0.4) X10*3/uL Baso # (Auto) (0.0-0.2) X10*3/uL Abs Immat Gran (auto) (0.00-0.03) X10*3/uL Absolute Neuts (auto) (2.0-8.3) x10*3/uL Absolute Nucleated RBC (0.0-0.012) X10*3/uL Nucleated RBC % (auto) (0.0-0.2) /100WBC Sodium (135-145) mmol/L Potassium (3.3-5.1) mmol/L Chloride (96-108) mmol/L Carbon Dioxide (22-29) mmol/L Anion Gap (12-20) BUN (9-16) mg/dL Creatinine (0.5-1.4) mg/dL Estim Creat Clear Calc Estimated GFR Random Glucose (60-115) mg/dL Calcium (8.4-10.2) mg/dL Total Bilirubin (0.0-1.0) mg/dL AST (5-37) U/L ALT (0-40) U/L Alkaline Phosphatase (39-117) U/L Total Protein (6.5-8.0) g/dL Albumin (3.5-5.0) g/dL Lipase (8-78) U/L Urine Color Yellow Urine Appearance Clear Urine pH 6.5 (5.0-9.0) Ur Specific [place] 1.025 (1.005-1.025) Urine Protein Negative (Neg-Trace) mg/dL Urine Glucose (UA) Negative (Negative) mg/dL Urine Ketones Negative (Negative) mg/dL Urine Blood Negative (Negative) Urine Nitrite Negative (Negative) Ur Leukocyte Esterase Negative (Negative) COVID-19 (JARETH) (Negative) COVID-19 Clin Com Prescription Management I considered prescription management with: Other (patient prescribed an anti-emetic medication) Discharge Plan Discharge Clinical Impression: Gastroenteritis Patient Disposition: Home, Self-Care Instructions: Gastroenteritis (DC), Acute Nausea and Vomiting (ED) Additional Instructions: Follow up with your primary care provider. Return to the emergency department immediately if your symptoms worsen or if you develop any dizziness, shortness of breath, difficulty breathing, chest pain, blurry vision, loss of vision, nausea, vomiting, abdominal pain, fever, chills, back pain, or any other complaints. Dion un seguimiento con bernabe proveedor de atenci?n primaria. Regrese al departamento de emergencias de inmediato si césar s?ntomas empeoran o si presenta mareos, falta de aire, dificultad para respirar, dolor de pecho, visi?n borrosa, p?rdida de la visi?n, n?useas, v?mitos, dolor abdominal, fiebre, escalofr?os, dolor de espalda o cualquier otras quejas. Prescriptions: New ondansetron 4 mg tablet,disintegrating 4 mg PO Q8H 3 Days Qty: 9 0RF No Action cyclobenzaprine 10 mg tablet 10 mg PO TID PRN (Reason: muscle spasm) Qty: 10 0RF ibuprofen 600 mg tablet 600 mg PO TID PRN (Reason: pain) Qty: 20 0RF acetaminophen [Tylenol Extra Strength] 500 mg tablet 500 mg PO Q6H PRN (Reason: fever or pain) Qty: 14 0RF lidocaine [Lidoderm] 5 % adhesive patch,medicated 1 patch topical DAILY MDD remove after 12 hours PRN (Reason: pain) Qty: 30 0RF Rx Instructions: leave on most painful area for up to 12 hrs naproxen 500 mg tablet 500 mg PO BID PRN (Reason: pain) 10 Days Qty: 20 0RF cyclobenzaprine 5 mg tablet 5 mg PO Q8H PRN (Reason: pain (scale score 7-10)) 5 Days Qty: 14 0RF lansoprazole 30 mg capsule,delayed release(DR/EC) 30 mg PO ONCE 30 Days Qty: 30 6RF Referrals: [facility] [place], [place] Family Medicine [Provider Group] (Call to establish and follow up with a primary care provider. If you already have a primary care provider, please follow up with them. Llame para establecer y hacer un seguimiento con un proveedor de atenci?n primaria. Si ya tiene un proveedor de atenci?n primaria, dion un seguimiento con ?l.) [facility] [place] [place] [facility] [Provider Group] (Call to establish and follow up with a primary care provider. If you already have a primary care provider, please follow up with them. Llame para establecer y hacer un seguimiento con un proveedor de atenci?n primaria. Si ya tiene un proveedor de atenci?n primaria, dion un seguimiento con ?l.) [facility] [place] [place] Primary [facility] [Provider Group] (Call to establish and follow up with a primary care provider. If you already have a primary care provider, please follow up with them. Llame para establecer y hacer un seguimiento con un proveedor de atenci?n primaria. Si ya tiene un proveedor de atenci?n primaria, dion un seguimiento con ?l.) Stand Alone Forms: Work/School Release Interventions: ED Discharge Assessment Last Done: 10/17/22 10:00 Discharge Date/Time: 10/17/22 10:01 Print Language: Armenian
[2022-10-17 06:55] LABS: COVID-19 Test Negative (Negative); IDNOW Serial# BCCEAD1C
[2022-10-17 06:57] LABS: Alanine Aminotransferase 18 U/L (0-40); Alkaline Phosphatase 54 U/L (39-117); Anion Gap 11 (12-20); Aspartate Amino Transferase 14 U/L (5-37); Bilirubin Total 0.4 mg/dL (0.0-1.0); Blood Urea Nitrogen 11 mg/dL (9-16); Calcium 8.9 mg/dL (8.4-10.2); Carbon Dioxide 28 mmol/L (22-29); Chloride 106 mmol/L (96-108); Creatinine Clr Calc Pharmacy 101.4; Estimated Glomerular Filt Rate > 60; Glucose Random 94 mg/dL (60-115); Lipase 17 U/L (8-78); Sodium 141 mmol/L (135-145); Total Protein 7.3 g/dL (6.5-8.0)
--- NOTE | 2022-10-17 08:00 | PC.NURSE ---
pt is a/o x 4 (spanish interpreter/translator at bedside). no sob/winston noted. lungs - cta bilatterally. heart sounds - regular. abd soft, non-tender. bs + 4 quads. skin pink warm and dry. no edema noted. pt c/o weakness/body aches/disc. pt to give u/a. pt aware of plan.
[2022-10-17 08:26] VITALS: BP 123/76; PULSE 69; RESP 17; TEMP 36.6; O2SAT 100
[2022-10-17 08:39] LABS: Appearance Urine Clear; Color Urine Yellow; Glucose Urine UA Negative (Negative); Leukocyte Esterase Urine Negative (Negative); Nitrite Urine Negative (Negative); PH 6.5 (5.0-9.0); Specific Gravity - Urine 1.025 (1.005-1.025); Urine Blood Negative (Negative); Urine Ketones Negative (Negative); Urine Protein Negative (Neg-Trace)
[2022-10-17] MEDS: ondansetron HCL 4 MG/2 ML VIAL IVPUSH (09:52)
[2022-10-17 09:54] VITALS: BP 123/80; PULSE 80; RESP 16; TEMP 36.6; O2SAT 98
== END 2022-10-17 10:01 | disposition home or self-care (01) ==
PROVIDERS: Emergency Provider Student in an Organized Health Care Education/Training Program
DX: K52.9 Noninfective gastroenteritis and colitis, unspecified (principal); Z20.822 Contact with and (suspected) exposure to COVID-19; Z20.828 Contact with and (suspected) exposure to other viral communicable diseases; Z79.899 Other long term (current) drug therapy
CPT/HCPCS: 80053; 81003; 83690; 85025; 87635; 96374; 99284; J2405

== ENCOUNTER 2022-11-07 14:56 | Outpatient (AMB) | payer MEDICAID, SELFPAY ==
--- NOTE | 2022-11-07 14:59 | A.OFFVIS_ITS ---
Intake Vital Signs 11/07/22 15:24 Height 5 ft 11 in Weight 170 lb BMI 23.7 BP 122/61 Blood Pressure Location Lt brachial Position Sitting Pulse 80 Intake Visit Reasons: Epigastric Pain Intake Note: Gurmeet presents in the office as a new consult for abdominal pain. Patient cc: abdominal pain/bloating and GERD. Hotel Concierge Required: Yes Accompanied by: Spouse Allergies No Known Drug Allergies Allergy (Verified 11/07/22 15:22) Unknown Medication List - Last Reconciled 11/07/22 by MARBELLA Phillips-Christian cyclobenzaprine 10 mg PO TID PRN cyclobenzaprine 5 mg PO Q8H PRN 5 days lansoprazole 30 mg PO ONCE 30 days lidocaine 5% (Lidoderm) 1 patch topical DAILY PRN MDD remove after 12 hours ondansetron 4 mg PO Q8H 3 days HPI HPI Comments History of Present Illness Details A 41 y/o male with LUQ pills dont help- alot of acid relux- does not feel hios food digest- seems to sit in stomach- nausea, Lansoprazole 30 mg QD- still has frequent break through Appetite regular- feels food not digesting Reviewed EGD from 05/17/21- No bowel issues present- [facility] Medical History Acid reflux Esophagitis Hiatal hernia Ulcer Varicose vein of scrotum Surgical History History of esophagogastroduodenoscopy (EGD) Hx of colonoscopy Family History Unknown No problems noted. Social History Household Members: Spouse and Children Alcohol intake: never Patient Tobacco Use Status: Never used Tobacco Current occupation: [employer] Review of Systems Const All systems reviewed & are unremarkable except as noted in HPI and below Card Denies chest pain and Denies dyspnea Resp Denies dyspnea GI Reports bloating and Reports heartburn Psych Reports anxiety Physical Exam Vital Signs: Last Vital Signs Pulse 80 11/07/22 15:24 BP 122/61 11/07/22 15:24 BMI result Body Mass Index 23.7 Const General: cooperative and comfortable Orientation/consciousness: patient oriented x3 Limitations: language barrier Eyes Sclerae: sclerae normal Resp Effort & Inspection: normal respiratory effort and able to speak in complete sentences Neuro General: patient oriented x3 Extrem General: Yes full ROM Psych Appearance: grossly normal and well kempt Mental Status: mental status grossly normal Speech and movement: Normal speech and movement present and Clear speech present Results Reviewed Results Reviewed: 05/17/21- Tyrone mpression/Findings: patulous LES hiatal hernia erosive esophagitis PLAN: check compliance with PPI Reflux precautions and diet if sx persist can consider referral for fundoplication and hernia repair Assessment & Plan Assessment & Plan (1) Acid reflux: Comment: P/E-unremarkable Reviewed EGD report, If symptoms persist consider surgical referral for ?fundoplication ( sent note to T) Refill pp1 Avoid culprits-reviewed reflux precautions Code(s): K21.9 - Gastro-esophageal reflux disease without esophagitis (2) Early satiety: Comment: compliance with PPI Reflux precautions and diet- reviewed if sx persist can consider referral for fundoplication and hernia repair consider- recurrence GERD after Code(s): R68.81 - Early satiety Plan: GES- Discuss with T- referral- Orders: Orders NM gastric emptying study 11/07/22 R68.81 - Early satiety Medications: New pantoprazole 40 mg PO DAILY 30 days 30 tabs 5RF Patient Instructions: GES- Will discuss with Dr. Hansen who to refer for consideration of fundoplication Reviewed reflux precautions- continue dietary modifications He is agreeable to plan Call with any questions or concerns Coding Level of Care Code Est Pt Level 3 (91347) Diagnoses Acid reflux K21.9 Early satiety R68.81 Time Spent (min) 25 Comment [id number]
[2022-11-07 15:24] VITALS: BP 122/61; PULSE 80; BMI 23.7
== END 2022-11-07 16:21 | disposition home or self-care (01) ==
PROVIDERS: Visit Provider Physician Assistant
DX: K21.9 Gastro-esophageal reflux disease without esophagitis (principal); R68.81 Early satiety
CPT/HCPCS: 99213

== ENCOUNTER → 2022-11-07 14:56 | Outpatient (BNVA) | payer MEDICAID, SELFPAY | PROVIDERS: Visit Provider Physician Assistant | DX: K21.9 Gastro-esophageal reflux disease without esophagitis (principal); R68.81 Early satiety | CPT/HCPCS: 99212 ==

== ENCOUNTER 2022-11-27 08:42 | Emergency (ER) | payer MEDICAID, SELFPAY ==
[2022-11-27 09:19] VITALS: BP 125/84; PULSE 82; RESP 19; TEMP 36.6; O2SAT 99; BMI 23.7
[2022-11-27 09:59] LABS: IDNOW Serial# 55D5AD1C; Influenza A Negative (Negative); Influenza B2 Negative (Negative)
[2022-11-27 10:02] LABS: COVID-19 Test Negative (Negative); IDNOW Serial# 6674DD1D
--- NOTE | 2022-11-27 10:06 | ED.FEVER ---
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 TMAX at home 100.4F. Additionally reports 2 episodes of nonbloody vomiting yesterday. Has been taking ibuprofen, DayQuil, NyQuil without relief. Last dose was last night. States that his son at home has similar symptoms and tested negative for covid/flu. Denies dizziness, sinus pain, ear pain, sore throat, cough, neck pain/ stiffness, abdominal pain, diarrhea, or constipation. Related Data Previous Rx's Medication Instructions Recorded cyclobenzaprine 10 mg tablet 10 mg PO TID PRN muscle spasm #10 03/25/22 tabs cyclobenzaprine 5 mg tablet 5 mg PO Q8H PRN pain (scale score 05/09/22 7-10) 5 days #14 tabs lidocaine 5 % topical patch 1 patch topical DAILY PRN pain #30 05/09/22 (Lidoderm) ea ondansetron 4 mg disintegrating 4 mg PO Q8H 3 days #9 tabs 10/17/22 tablet lansoprazole 30 mg capsule,delayed 30 mg PO ONCE 30 days #30 caps 11/01/22 release pantoprazole 40 mg tablet,delayed 40 mg PO DAILY 30 days #30 tabs 11/07/22 release Allergies Allergy/AdvReac Type Severity Reaction Status Date / Time No Known Drug Allergies Allergy Unknown Verified 11/27/22 09:19 Review of Systems Review of Systems: Constitutional: + fever, No chills, No fatigue, No malaise, + body aches ENT/Mouth: No ear pain, No hearing loss, + nasal congestion, No sinus pain, No rhinorrhea, No sore throat Eyes: No eye pain, No swelling, No redness, No vision changes, No foreign body, No discharge Cardio: No chest pain, No palpitations, No dyspnea on exertion, No orthopnea, No edema Respiratory: No SOB, No cough, No sputum, No wheezing, No dyspnea, No hemoptysis GI: No nausea, + vomiting, No hematemesis, No abdominal pain, No diarrhea, No constipation, No hematochezia, No melena : No irregular bleeding, No dysuria, No frequency, No urgency, No hesitancy, No hematuria, No flank pain, No urinary flow changes, No urinary incontinence or retention MSK: No back pain, No neck pain, No joint pain, No myalgias Skin: No skin lesions, No rashes Neuro: No weakness, No numbness, No paresthesias, No LOC, No dizziness, + headache All other systems reviewed and are negative. [facility] Past Medical History Attestation statement: The following information was validated with the patient. Source: old records reviewed and nursing notes reviewed Medical History Esophagitis Varicose vein of scrotum Hiatal hernia Acid reflux Ulcer Surgical History History of esophagogastroduodenoscopy (EGD) Hx of colonoscopy Family History Family History Unknown No problems noted. Social History Social History Household Members: Spouse and Children Alcohol intake: never Patient Tobacco Use Status: Never used Tobacco Advance Directives: No Advance Directives Information Provided: No Current occupation: [employer] Physical Exam Vital Signs: Vital Signs: Last Vital Signs Temp 98 F 11/27/22 09:19 Pulse 82 11/27/22 09:19 Resp 19 11/27/22 09:19 BP 125/84 11/27/22 09:19 Pulse Ox 99 11/27/22 09:19 O2 Del Method Room Air 11/27/22 09:19 BMI result Body Mass Index 23.7 Vital signs stable. Afebrile. General: Nontoxic appearing. NAD Skin: Warm and dry. No rashes or lesions. Head: Normocephalic, atraumatic. EENT: PERRLA. EOM intact. External ears normal. B/l EAC without erythema or edema. TM intact b/l. Moist mucous membranes. Pharynx without exudates, edema or erythema. Tonsils normal. Uvula midline. Neck: Supple without LAD. Normal ROM. Trachea midline. Cardiac: Chest wall symmetric. RRR. S1 and S1 appreciated. Lungs: CTA bilaterally. No rales, rhonchi, or wheezes. Normal respiratory effort without accessory muscle use. Abdomen: No visible lesions or scars. Soft, NT/ND. No rebound tenderness or guarding. Normoactive BS x4. No masses, hepatomegaly, or splenomegaly. Spine: No midline spinous tenderness. No deformity or step off. Ext: Upper and lower extremities atraumatic. Full ROM throughout. Pulses 2+ equal b/l. Neuro: AOx3. Normal speech. CN 2-12 grossly intact. NV intact distally. Course Course Course Narrative: 1007-- Patient's serology negative for COVID and flu however symptoms are consistent with viral syndrome given recent sick contacts. Advised patient of serology results >Patient will be sent home on supportive tx. Advised patient to rest, drink fluids, and take tylenol/ motrin as needed as symptoms should resolve on their own. Educated on return precautions. All questions answered. Patient agreeable with plan. Stable for discharge. Medical Decision Making Medical Decision Making [facility] Narrative: 42 yo male with PMHx significant for esophagitis, GERD, and hiatal hernia presents to the ED today with complaint of fever, headache, nasal congestion, body aches x2 days. VSS, afebrile, nontoxic appearing. External ears normal, b/l EAC without erythema or edema, TM intact b/l, moist mucous membranes, pharynx without exudates, edema or erythema, tonsils normal, uvula midline, nupple without LAD. Clinical concern for viral syndrome vs URI vs sinusitis vs gastroenteritis > will obtain serology for COVID and influenza. Low suspicion for acute otitis media, strep throat, mono, pneumonia, or meningitis/encephalitis. Differential Diagnosis Differential Diagnoses: The differential diagnosis associated with the presentation includes As above. Admission/Observation Not indicated. Lab Data [facility] Lab Attestation statement: I reviewed the patient's lab results. See above course narrative. Labs: Lab Results 11/27/22 Range/Units 09:31 COVID-19 (JARETH) Negative (Negative) COVID-19 Clin Com See Note Influenza Type A (BA) Negative (Negative) Influenza Type B (BA) Negative (Negative) Influenza A & B Note See Note External Record Review External record reviewed: Inpatient record Critical Care Time Critical Care Time Critical Care Time: No Discharge Plan Discharge Clinical Impression: Viral infection Patient Disposition: Home, Self-Care Instructions: Viral Syndrome (ED) Additional Instructions: Today you tested negative for COVID and flu, however your symptoms are consistent with a viral infection. Take Ibuprofen or Tylenol as needed for fevers or body aches.? Practice good hand hygiene. Get rest and drink plenty of fluids. Follow-up with your primary care provider as needed. Return to the emergency department with new or worsening symptoms. In case of emergency call 911 Prescriptions: No Action lansoprazole 30 mg capsule,delayed release(DR/EC) 30 mg PO ONCE 30 Days Qty: 30 6RF cyclobenzaprine 10 mg tablet 10 mg PO TID PRN (Reason: muscle spasm) Qty: 10 0RF lidocaine [Lidoderm] 5 % adhesive patch,medicated 1 patch topical DAILY MDD remove after 12 hours PRN (Reason: pain) Qty: 30 0RF Rx Instructions: leave on most painful area for up to 12 hrs cyclobenzaprine 5 mg tablet 5 mg PO Q8H PRN (Reason: pain (scale score 7-10)) 5 Days Qty: 14 0RF ondansetron 4 mg tablet,disintegrating 4 mg PO Q8H 3 Days Qty: 9 0RF pantoprazole 40 mg tablet,delayed release (DR/EC) 40 mg PO DAILY 30 Days Qty: 30 5RF Referrals: Physician,Unknown J [Physician] - Stand Alone Forms: Work/School Release Interventions: ED Discharge Assessment Last Done: 11/27/22 10:35 Discharge Date/Time: 11/27/22 10:37
== END 2022-11-27 10:37 | disposition home or self-care (01) ==
PROVIDERS: Emergency Provider Emergency Medicine; PCP Nurse Practitioner Primary Care
DX: B34.9 Viral infection, unspecified (principal); R50.9 Fever, unspecified; Z20.822 Contact with and (suspected) exposure to COVID-19; Z20.828 Contact with and (suspected) exposure to other viral communicable diseases
CPT/HCPCS: 87502; 87635; 99283

== ENCOUNTER → 2022-12-03 07:43 | Outpatient (REF) | payer MEDICAID, SELFPAY ==
--- NOTE | ~2022-12-03 | NM_ITS ---
EXAMINATION: TX RADIONUCLIDE SOLID FOOD GASTRIC EMPTYING 4-HOUR STUDY CLINICAL INFORMATION: Early satiety. COMPARISON: None available. TECHNIQUE: A standard meal consisting of 4 oz of Egg Beaters brand tagged with 1000 microcuries Tc-99m Sulfur Colloid, 8 oz water and 2 slices of toast with jelly was administered orally to the patient. Images were obtained using a dual head gamma camera in the anterior and posterior projections over of the stomach immediately post ingestion and at hourly intervals up to 4 hours post ingestion. The anterior and posterior counts at each time interval were averaged using the geometric mean and expressed as percentage of the immediate post ingestion counts. FINDINGS: There is good visualization of activity in the stomach immediately post ingestion. As the study progresses, there is good clearance of activity from the stomach and visualization of progressively increasing small bowel activity. By the end of the study, there is almost no retention noted in the stomach. Retention in the stomach at each time interval was: 1 hour 67% (normal 37%-90%) 2 hours 35% (normal 30%-60%) 3 hours 12% 4 hours 6% (normal 0%-10%) TX/TX gastric emptying study IMPRESSION: Normal 4-hour solid food gastric emptying study. (For solid meal, rapid gastric emptying is less than 30% at 60 minutes. Delayed gastric emptying criteria is more than 60% remaining at 120 minutes or more than 10% at 240 minutes. The 4-hour value is the best discriminator of a normal or abnormal result). Gastric emptying study grading per JNMT Consensus Recommendations in 2008 (https://tech.snmjournals.org/content/36/44) Grade 1 (mild retention): 11-20% at 4h Grade 2 (moderate retention): 21-35% at 4h Grade 3 (severe retention): 36-50% at 4h Grade 4 (very severe retention): >50% retention at 4h
== END ==
LOC: HO.NUCMED 07:43
PROVIDERS: PCP Nurse Practitioner Primary Care; Visit Provider Physician Assistant
DX: R68.81 Early satiety (principal)
CPT/HCPCS: 78264; A9541

== ENCOUNTER 2022-12-20 14:09 | Outpatient (REF) | payer MEDICAID, SELFPAY ==
[2022-12-20 14:23] LABS: Appearance Urine Clear; Color Urine Yellow; Glucose Urine UA Negative (Negative); Leukocyte Esterase Urine Negative (Negative); Nitrite Urine Negative (Negative); PH 6.5 (5.0-9.0); Specific Gravity - Urine 1.025 (1.005-1.025); Urine Blood Negative (Negative); Urine Ketones Negative (Negative); Urine Protein Negative (Neg-Trace)
[2022-12-20 14:28] LABS: Bacteria Urine None Seen (None Seen); Hyaline Casts Urine 0-2 /LPF (0-2); RBC Urine 0-2 /HPF (0-2); Squamous Epithelial Cell Urine 0-2 /HPF (0-2); WBC Urine 0-5 /HPF (0-5)
[2022-12-20 18:36] LABS: CT PCR NOT DETECTED (Not Detect.); NG PCR NOT DETECTED (Not Detect.)
== END 2022-12-20 14:10 | disposition home or self-care (01) ==
LOC: HO.HHCLNP 14:09
PROVIDERS: Visit Provider Nurse Practitioner Primary Care
DX: Z11.3 Encounter for screening for infections with a predominantly sexual mode of transmission (principal); N53.12 Painful ejaculation
CPT/HCPCS: 0353U; 81001

== ENCOUNTER 2023-02-20 08:01 | Outpatient (AMB) | payer MEDICAID, SELFPAY ==
[2023-02-20 08:06] VITALS: BP 111/74; PULSE 87; BMI 23.7
--- NOTE | 2023-02-20 08:06 | MHC.OFFVIS ---
Intake Vital Signs 02/20/23 08:06 Height 5 ft 11 in Weight 169 lb 12.095 oz BMI 23.7 BP 111/74 Blood Pressure Location Lt brachial Position Sitting Pulse 87 Intake Visit Reasons: blood in vomit Intake Note: Patient here for f/u acid reflux. C/o blood when vomiting. Reports upset stomach immediately after eating or drinking. Taking lansoprazole in the morning. 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 Accompanied by: Spouse Allergies No Known Drug Allergies Allergy (Verified 02/20/23 10:48) Unknown HPI HPI Comments History of Present Illness Details 42-year-old male last seen October 2022 with acid reflux presents today with- he says he feels food not digesting- feels food gets stuck when he swallow 3- he drinks a lot of water- he has a lot of phlegm, he does have postnasal drip He is sucking up nasal congestion Reviewed GES-normal Reviewed EGD from 05/2021- esophagitis no tob/ etoh Appetite is fairly good a No nausea, vomiting hematochezia fever or chills His and child are present [facility]MERLY [facility], [facility] Medical History Esophagitis Varicose vein of scrotum Hiatal hernia Acid reflux Ulcer Surgical History History of esophagogastroduodenoscopy (EGD) Hx of colonoscopy Family History Unknown No problems noted. Social History Household Members: Spouse and Children Alcohol intake: never Patient Tobacco Use Status: Never used Tobacco Current occupation: [employer] Review of Systems Const All systems reviewed & are unremarkable except as noted in HPI and below ENT Reports dysphagia, Denies mouth lesions, Reports nasal congestion, Denies odynophagia, Reports post nasal drip, Denies sore throat, Denies throat swelling and Denies tongue swelling Card Denies chest pain and Denies dyspnea Resp Reports excessive phlegm production and Denies dyspnea GI Denies abdominal pain, Denies change in stool character, Reports dysphagia and Denies odynophagia Psych Reports anxiety Aller/Immun Denies throat swelling and Denies tongue swelling Physical Exam Vital Signs: Last Vital Signs Pulse 87 02/20/23 08:06 BP 111/74 02/20/23 08:06 BMI result Body Mass Index 23.7 Const General: comfortable and no acute distress Orientation/consciousness: patient oriented x3 Limitations: language barrier HEENT Mouth: tongue normal (Mild fissure), oropharynx normal and no drooling Eyes Conjunctivae: conjunctival abnormal (Conjunctiva injected bilaterally no drainage) Resp Effort & Inspection: normal respiratory effort and able to speak in complete sentences Auscultation: clear to auscultation bilaterally, no rales, no rhonchi and no wheezes Cardio Rate: regular rate Rhythm: regular rhythm Heart sounds: S1 normal heart sound present and S2 normal heart sound present GI Palpation (GI): Soft to palpation and nontender Auscultation: normal bowel sounds Neuro General: patient oriented x3 Extrem General: Yes full ROM Psych Appearance: well kempt Speech and movement: Clear speech present Affect: Labile affect present Attitude: cooperative Thought process: Normal thought process present Thought content: Normal thought content present Results AMB Urinalysis, Automated UA Leukoctes 0 Alden/uL Last Edit by YANA Dykes on 02/20/23 12:17 UA Nitrite Negative Last Edit by YANA Dykes on 02/20/23 12:17 UA Urobilinogen 0.2 mg/dL Last Edit by YANA Dykes on 02/20/23 12:17 UA Protein 0 mg/dL Last Edit by YANA Dykes on 02/20/23 12:17 UA pH 7.0 Last Edit by YANA Dykes on 02/20/23 12:17 UA Blood 0 Sabino/uL Last Edit by YANA Dykes on 02/20/23 12:17 UA Specific [place] 1.020 Last Edit by YANA Dykes on 02/20/23 12:17 UA Ketone Negative Last Edit by YANA Dykes on 02/20/23 12:17 UA Bilirubin 0 mg/dL Last Edit by YANA Dykes on 02/20/23 12:17 UA Glucose 0 mg/dL Last Edit by YANA Dykes on 02/20/23 12:17 Results Reviewed Results Reviewed: 12/03/22 FINDINGS: There is good visualization of activity in the stomach immediately post ingestion. As the study progresses, there is good clearance of activity from the stomach and visualization of progressively increasing small bowel activity. By the end of the study, there is almost no retention noted in the stomach. Retention in the stomach at each time interval was: 1 hour 67% (normal 37%-90%) 2 hours 35% (normal 30%-60%) 3 hours 12% 4 hours 6% (normal 0%-10%) NM/NM gastric emptying study IMPRESSION: Normal 4-hour solid food gastric emptying study. (For solid meal, rapid gastric emptying is less than 30% at 60 minutes. Delayed gastric emptying criteria is more than 60% remaining at 120 minutes or more than 10% at 240 minutes. The 4-hour value is the best discriminator of a normal or abnormal result). Impression/Findings: patulous LES hiatal hernia erosive esophagitis PLAN: check compliance with PPI Reflux precautions and diet if sx persist can consider referral for fundoplication and hernia repair Assessment & Plan Assessment & Plan (1) Esophagitis: Comment: History of esophagitis, EGD 2017 and [place]- Code(s): K20.90 - Esophagitis, unspecified without bleeding (2) Acid reflux: Comment: P/I-veeywnfsdacz-Efuklapp 1 g q.i.d. Reviewed EGD report,-05/2021 If symptoms persist consider surgical referral for ?fundoplication sent note for referral, 2nd request Avoid culprits-reviewed reflux precautions Code(s): K21.9 - Gastro-esophageal reflux disease without esophagitis (3) Dysphagia: Code(s): R13.10 - Dysphagia, unspecified (4) Postnasal drip: Comment: Describes postnasal drip Code(s): R09.82 - Postnasal drip Plan: Likely plays a role-see PCP Plan EGD, r/o stricture, esophagitis other endoscopic findings to account for his symptoms- note sent to vp revenue cycle, as well discuss Carafate q.i.d. Any indication of Hematemesis/hemoptysis ED Orders: Orders Complete Blood Count Auto Diff 02/20/23 K20.90 - Esophagitis, unspecified without bleeding, K21.9 - Gastro-esophageal reflux disease without esophagitis, R13.10 - Dysphagia, unspecified EDG - GI Use Only 02/20/23 K20.90 - Esophagitis, unspecified without bleeding, K21.9 - Gastro-esophageal reflux disease without esophagitis, R13.10 - Dysphagia, unspecified Medications: New sucralfate (Carafate) 1 g (10 mL) PO QIDACHS 8 weeks 420 mL 0RF Patient Instructions: Pleasant 42, somewhat anxious 42-year-old male with gerd-= EGD, discussed detail, he is agreeable, note sent to vp revenue cycle, as well discuss Carafate q.i.d. 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
== END 2023-02-20 09:39 | disposition home or self-care (01) ==
PROVIDERS: PCP Nurse Practitioner Primary Care; Visit Provider Physician Assistant
DX: K21.00 Gastro-esophageal reflux disease with esophagitis, without bleeding (principal); R13.10 Dysphagia, unspecified; R09.82 Postnasal drip
CPT/HCPCS: 99214

== ENCOUNTER → 2023-02-20 08:01 | Outpatient (BNVA) | payer MEDICAID, SELFPAY | PROVIDERS: PCP Nurse Practitioner Primary Care; Visit Provider Physician Assistant | DX: N53.12 Painful ejaculation (principal); R36.1 Hematospermia; K20.90 Esophagitis, unspecified without bleeding; K21.9 Gastro-esophageal reflux disease without esophagitis; R13.10 Dysphagia, unspecified; R09.82 Postnasal drip | CPT/HCPCS: 81003; 99202; 99212 ==

== ENCOUNTER 2023-02-20 10:37 | Outpatient (AMB) | payer MEDICAID, SELFPAY ==
--- NOTE | 2023-02-20 10:38 | MHC.OFFVIS ---
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 is present. He states he saw a Urologist in the past about a year ago, he also had intermittent pain with ejaculation. and was treated with abx's on repeated episodes which resolved the symptoms. He denies dysuria currently and in further discussion he states that he has not had any recent episodes of blood in the semen or pain with ejaculation. I have discussed that his symptoms are suggestive of prostatitis. Currently he is asymptomatic. Plan - He will call if he has recurrent symptoms [facility]LY [facility] Medical History Postnasal drip Dysphagia Early satiety Esophagitis Varicose vein of scrotum Hiatal hernia Acid reflux Ulcer Surgical History History of esophagogastroduodenoscopy (EGD) Hx of colonoscopy Family History Unknown No problems noted. Social History Household Members: Spouse and Children Alcohol intake: never Patient Tobacco Use Status: Never used Tobacco Current occupation: [employer] Review of Systems Const All systems reviewed & are unremarkable except as noted in HPI and below Reports no additional complaints Eyes Reports no additional complaints ENT Reports no additional complaints Card Denies dyspnea Resp Denies cough and Denies dyspnea GI Reports no additional complaints Musc Reports no additional complaints Skin/Breast Denies rash and Denies unusual bruising Neuro Reports no additional complaints Psych Reports no additional complaints Endo Reports no additional complaints Homero/Lymph Reports no additional complaints Aller/Immun Reports no additional complaints Physical Exam Const General: healthy appearing, no acute distress and well developed Orientation/consciousness: patient oriented x3 HEENT Head: Yes normocephalic and Yes atraumatic Eyes Conjunctivae: conjunctivae normal Neck Neck: Yes normal visual inspection Chest Chest palpation & inspection: normal inspection of the chest Resp Effort & Inspection: normal respiratory effort Cardio Rate: regular rate GI Inspection: Yes normal to inspection Skin General skin exam: no rashes or lesions noted Neuro General: patient oriented x3 Extrem General: No pedal edema Psych Appearance: grossly normal Affect: normal affect Results AMB Urinalysis, Automated UA Leukoctes 0 Alden/uL Last Edit by YANA Dykes on 02/20/23 12:17 UA Nitrite Negative Last Edit by Juice Myers French on 02/20/23 12:17 UA Urobilinogen 0.2 mg/dL Last Edit by Juice Myers French on 02/20/23 12:17 UA Protein 0 mg/dL Last Edit by Juice Myers French on 02/20/23 12:17 UA pH 7.0 Last Edit by Juice Myers French on 02/20/23 12:17 UA Blood 0 Sabino/uL Last Edit by Juice Myers [facility] on 02/20/23 12:17 UA Specific [place] 1.020 Last Edit by Juice Myers French on 02/20/23 12:17 UA Ketone Negative Last Edit by Juiec Myers French on 02/20/23 12:17 UA Bilirubin 0 mg/dL Last Edit by Juice Myers French on 02/20/23 12:17 UA Glucose 0 mg/dL Last Edit by Juice Myers [facility] on 02/20/23 12:17 Results Reviewed Results Reviewed: Laboratory Last Values Urine pH (Auto) 7.0 02/20/23 12:16 Specific [place] (Auto) 1.020 02/20/23 12:16 Urine Protein (Auto) 0 mg/dL 02/20/23 12:16 Glucose (UA)(Auto) 0 mg/dL 02/20/23 12:16 Urine Ketones (Auto) Negative 02/20/23 12:16 Urine Blood (Auto) 0 Sabino/uL 02/20/23 12:16 Urine Nitrite (Auto) Negative 02/20/23 12:16 Urine Bilirubin (Auto) 0 mg/dL 02/20/23 12:16 Urine Urobilinogen (Auto) 0.2 mg/dL 02/20/23 12:16 Leukocyte Esterase (Auto) 0 Alden/uL 02/20/23 12:16 Assessment & Plan Assessment & Plan (1) Blood in semen: Code(s): R36.1 - Hematospermia (2) Pain with ejaculation: Code(s): N53.12 - Painful ejaculation Plan FU prn Orders: Orders AMB Urinalysis Automated 02/20/23 Z13.9 - Encounter for screening, unspecified Coding Level of Care Code New Pt Level 3 (46025) Diagnoses Blood in semen R36.1 Pain with ejaculation N53.12
== END 2023-02-20 11:42 | disposition home or self-care (01) ==
PROVIDERS: PCP Nurse Practitioner Primary Care; Visit Provider Urology
DX: R36.1 Hematospermia (principal); N53.12 Painful ejaculation
CPT/HCPCS: 99203

== ENCOUNTER 2023-02-26 08:41 | Emergency (ER) | payer MEDICAID, SELFPAY ==
--- NOTE | ~2023-02-26 | XR_ITS ---
EXAMINATION: XR WRIST, LEFT CLINICAL INFORMATION: Injury. COMPARISON: None available. TECHNIQUE: PA, lateral, oblique, and scaphoid views of the left wrist. FINDINGS: No acute fracture or dislocation. No joint space narrowing or marginal osteophytes. No osseous erosion. Normal carpal alignment. No abnormal soft tissue calcification. No significant soft tissue swelling. XR/XR wrist LT 2V IMPRESSION: Unremarkable examination.
--- NOTE | ~2023-02-26 | XR_ITS ---
EXAMINATION: XR CHEST CLINICAL INFORMATION: Shortness of breath and cough. COMPARISON: 03/27/2022. TECHNIQUE: 2 views of the chest were obtained. FINDINGS: The cardiomediastinal silhouette is stable. There is a right apical calcific granuloma similar to previous. There is no focal lung consolidation or pleural effusion. The bony structures and soft tissues are unremarkable. XR/XR chest 2V IMPRESSION: No active cardiopulmonary disease.
[2023-02-26 08:50] VITALS: BP 124/81; PULSE 79; RESP 19; TEMP 36.6; O2SAT 98; BMI 24.0
--- NOTE | 2023-02-26 09:58 | ED_ITS ---
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 Patient states that for the last 3 days he has had a cough and congestion. Patient states that 3 days ago he stopped a heavy door with his left wrist and has been having pain in his left wrist since. Patient denies any dizziness, lightheadedness, abdominal pain, nausea, vomiting, fever, chills, blurry vision, double vision, loss of vision, chest pain, difficulty breathing, shortness of breath, back pain, night sweats, pain with urination, increased urinary frequency, increased urinary urgency, blood in his urine or stool, syncope or a near syncopal episode, bowel incontinence, bladder incontinence, bowel retention, bladder retention, or any other complaints at this time. Onset (ago): day(s) (3) Severity: mild Severity scale (1-10): 2 Relieving factors: none Exacerbating factors: none Associated symptoms: denies other symptoms Treatments prior to arrival: none Related Data Home Medications Medication Instructions Recorded Confirmed lidocaine 5 % topical patch 1 patch topical DAILY PRN pain 02/20/23 (Lidoderm) ondansetron 4 mg disintegrating 4 mg PO Q8H PRN nausea and vomiting 02/20/23 tablet Previous Rx's Medication Instructions Recorded lansoprazole 30 mg capsule,delayed 30 mg PO ONCE 30 days #30 caps 11/01/22 release pantoprazole 40 mg tablet,delayed 40 mg PO DAILY 30 days #30 tabs 11/07/22 release sucralfate 100 mg/mL oral 1 g (10 mL) PO QIDACHS 8 weeks 02/20/23 suspension (Carafate) #420 mL benzonatate 100 mg capsule 100 mg PO BID PRN cough 7 days #14 02/26/23 caps prednisone 20 mg tablet 20 mg PO DAILY 7 days #7 tabs 02/26/23 Allergies Allergy/AdvReac Type Severity Reaction Status Date / Time No Known Drug Allergies Allergy Unknown Verified 02/26/23 08:50 Review of Systems Constitutional: Constitutional: Reports no additional constitutional complaints, Denies chills, Denies fever(s) and Denies night sweats Eyes: Eyes: Reports no additional eye complaints, Denies blurry vision, Denies change in vision, Denies diplopia, Denies eye discharge, Denies loss of vision and Denies eye pain ENT: Denies dizziness and Reports nasal congestion Cardiovascular: Cardiovascular: Reports no additional cardiovascular complaints, Denies chest pain, Denies lightheadedness, Denies Loss of Consciousness and Denies dyspnea Respiratory: Respiratory: Reports no additional respiratory complaints, Reports cough and Denies dyspnea Gastrointestinal: Gastrointestinal: Reports no additional gastrointestinal complaints, Denies abdominal pain, Denies melena, Denies hematochezia, Denies change in bowel habits and Denies change in stool character Genitourinary: Genitourinary: Reports no additional male genitourinary complaints, Denies hematuria, Denies oliguria, Denies difficulty urinating, Denies dysuria, Denies urinary frequency, Denies urinary hesitancy, Denies urinary incontinence and Denies urinary urgency Musculoskeletal: Musculoskeletal: Reports no additional musculoskeletal complaints, Denies numbness and Denies tingling Comments: left wrist pain Neurologic: Denies dizziness, Denies loss of vision, Denies numbness and Denies tingling Psychiatric: Psychiatric: Reports no additional psychiatric complaints Endocrine: Endocrine: Reports no additional endocrine complaints Hematologic/Lymphatic: Hematologic/Lymphatic: Reports no additional hematologic/lymphatic complaints Allergic/Immunologic: Allergic/Immunologic: Reports no additional allergic/immunologic complaints [facility] Past Medical History Attestation statement: The following information was validated with the patient. Source: old records reviewed and nursing notes reviewed Medical History Early satiety Esophagitis Varicose vein of scrotum Hiatal hernia Acid reflux Ulcer Surgical History History of esophagogastroduodenoscopy (EGD) Hx of colonoscopy Family History Family History Unknown No problems noted. Social History Social History Household Members: Spouse and Children Alcohol intake: never Patient Tobacco Use Status: Never used Tobacco Advance Directives: No Advance Directives Information Provided: No Current occupation: [employer] Physical Exam ED Vital Signs: Vital Signs - 24 hr 02/26/23 08:50 Temperature 98 F Pulse Rate 79 Respiratory Rate 19 Blood Pressure 124/81 Pulse Oximetry 98 Oxygen Delivery Method Room Air BMI result Body Mass Index 24.0 Const General: cooperative, no acute distress, alert and awake Nutritional Appearance: well nourished Orientation/consciousness: patient oriented x3 Limitations: no limitations HENMT Head: Yes normal to inspection and Yes atraumatic Ears: hearing grossly normal bilaterally and external ears normal General nose exam: Normal external nose present, no nasal discharge noted and no epistaxis Face and sinus: Yes normal facial exam, No abrasion and No laceration Mouth: Normal oral and palatal mucosa present, no drooling and no muffled voice Eyes General: appearance normal, both eyes and all related structures Periorbital: periorbital findings normal Eyelids: Yes eyelids normal Conjunctivae: conjunctivae normal Pupils: Equal, round and reactive pupils present EOM: EOMs intact bilaterally Neck Neck: Yes normal visual inspection, Yes full ROM and Yes no lymphadenopathy Chest Chest palpation & inspection: normal inspection of the chest Resp Effort & Inspection: normal respiratory effort and able to speak in complete sentences GI Inspection: Yes normal to inspection Neuro General: patient oriented x3 and moves all extremities Cranial nerves: Yes Equal, round and reactive pupils present Cognition (Neuro): normal cognition Motor exam (neuro): 5/5 motor strength present throughout Sensory Exam: Normal double simultaneous stimulation for sensation Coordination: [id number] test normal Extrem General: Yes normal to inspection, Yes full ROM and Yes capillary refill normal Psych Appearance: grossly normal Mental Status: mental status grossly normal Affect: normal affect Attitude: cooperative Thought process: Normal thought process present Thought content: Normal thought content present Insight: Good insight present (Psych) Procedures Orthopedic Splinting/Casting Injury #1: Side: left Upper Extremity Injury Location: wrist Upper Extremity Immobilizer: thumb spica Medical Decision Making Medical Decision Making MDM Narrative: Patient is a 42 year old assigned male at with a history of asthma and GERD presenting to the emergency department today with a cough, nasal congestion, and left wrist pain. Patient's physical exam was unremarkable. Patient's COVID, influenza, and RSV swabs were negative. Patient's chest and left wrist x-rays showed no acute process. I explained my physical exam findings as well as all test results to the patient. I answered all questions asked by the patient. Patient's left wrist was placed in a velcro thumb spica splint for symptom relief. Patient's PMS was in tact prior to and after splint placement. I stressed the importance of the patient taking his medication as prescribed. I stressed the importance of the patient following up with his primary care provider. I stressed the importance of the patient returning to the emergency department immediately if his symptoms were to worsen or if he were to develop any dizziness, shortness of breath, difficulty breathing, chest pain, blurry vision, loss of vision, nausea, vomiting, abdominal pain, fever, chills, back pain, or any other complaints. Patient verbalized agreement and understanding with this treatment plan and discharge. Differential Diagnosis Differential Diagnoses: The differential diagnosis associated with the presentation includes Cough URI COVID Influenza RSV Wrist fracture Wrist sprain Wrist strain Admission/Observation Consideration of admission/observation: Escalation of care including admission/observation considered Patient would have been admitted to the hospital had his work up had any findin gs where hospital admission was appropriate and his clinical presentation warranted hospital admission. Lab Data MDM Lab Attestation statement: I reviewed the patient's lab results. My interpretation of these studies and their corresponding values is that they are grossly normal. Labs: Lab Results 02/26/23 Range/Units 09:48 Influenza Type A (PCR) NEGATIVE (Negative) Influenza Type B (PCR) NEGATIVE (Negative) RSV RNA Qual (PCR) NEGATIVE (Negative) SARS-CoV-2 RNA (RT-PCR) NEGATIVE (Negative) Independent Interpretation I performed an independent interpretation of an: Plain X-Ray Interpretation: My interpretation is in agreement with the radiologist's impression of these imaging studies. EXAMINATION: XR CHEST CLINICAL INFORMATION: Shortness of breath and cough. COMPARISON: 03/27/2022. TECHNIQUE: 2 views of the chest were obtained. FINDINGS: The cardiomediastinal silhouette is stable. There is a right apical calcific granuloma similar to previous. There is no focal lung consolidation or pleural effusion. The bony structures and soft tissues are unremarkable. XR/XR chest 2V IMPRESSION: No active cardiopulmonary disease. Dictated By: Ramos Greenfield Signed By: Electronically signed by Ramos Greenfield 02/26/23 0955 EXAMINATION: XR WRIST, LEFT CLINICAL INFORMATION: Injury. COMPARISON: None available. TECHNIQUE: PA, lateral, oblique, and scaphoid views of the left wrist. FINDINGS: No acute fracture or dislocation. No joint space narrowing or marginal osteophytes. No osseous erosion. Normal carpal alignment. No abnormal soft tissue calcification. No significant soft tissue swelling. XR/XR wrist LT 2V IMPRESSION: Unremarkable examination. Dictated By: Mook Lynn MD Signed By: Electronically signed by Mook Lynn MD 02/26/23 1050 Radiology Impression Discussion of test interpretation with radiology: I have reviewed the radiologist's reading. Discharge Plan Discharge Clinical Impression: Sprain of left wrist, URI (upper respiratory infection) Patient Disposition: Home, Self-Care Instructions: Sprain (ED), Upper Respiratory Infection (DC) Additional Instructions: Follow up with your primary care provider. Return to the emergency department immediately if your symptoms worsen or if you develop any dizziness, shortness of breath, difficulty breathing, chest pain, blurry vision, loss of vision, nausea, vomiting, abdominal pain, fever, chills, back pain, or any other complaints. Chani un seguimiento con bernabe proveedor de atenci?n primaria. Regrese al departamento de emergencias inmediatamente si césar s?ntomas empeoran o si presenta mareos, dificultad para respirar, dificultad para respirar, dolor en el pecho, visi?n borrosa, p?rdida de la visi?n, n?useas, v?mitos, dolor abdominal, fiebre, escalofr?os, dolor de espalda o cualquier otras quejas. Prescriptions: New prednisone 20 mg tablet 20 mg PO DAILY 7 Days Qty: 7 0RF benzonatate 100 mg capsule 100 mg PO BID PRN (Reason: cough) 7 Days Qty: 14 0RF No Action lansoprazole 30 mg capsule,delayed release(DR/EC) 30 mg PO ONCE 30 Days Qty: 30 6RF pantoprazole 40 mg tablet,delayed release (DR/EC) 40 mg PO DAILY 30 Days Qty: 30 5RF lidocaine [Lidoderm] 5 % adhesive patch,medicated 1 patch topical DAILY PRN (Reason: pain) Rx Instructions: leave on most painful area for up to 12 hrs ondansetron 4 mg tablet,disintegrating 4 mg PO Q8H PRN (Reason: nausea and vomiting) sucralfate [Carafate] 100 mg/mL suspension 1 g PO QIDACHS 56 Days Qty: 420 0RF Referrals: Blanca Quinn [employer] [Primary Care Provider] - Stand Alone Forms: Work/School Release Print Language: Comoran
[2023-02-26 10:32] LABS: Influenza A PCR NEGATIVE (Negative); Influenza B PCR NEGATIVE (Negative); Resp Syncy Virus RNA Qual PCR NEGATIVE (Negative); SARS COV2 PCR INHOUSE NEGATIVE (Negative)
== END 2023-02-26 11:11 | disposition home or self-care (01) ==
PROVIDERS: Physician Assistant Medical; Emergency Provider Emergency Medicine Emergency Medical Services; PCP Nurse Practitioner Primary Care
DX: S63.502A Unspecified sprain of left wrist, initial encounter (principal); R06.02 Shortness of breath; R05.9 Cough, unspecified; R07.89 Other chest pain; Y29.XXXA Contact with blunt object, undetermined intent, initial encounter; Y93.9 Activity, unspecified; Y92.9 Unspecified place or not applicable; Y99.9 Unspecified external cause status; Z20.822 Contact with and (suspected) exposure to COVID-19; Z20.828 Contact with and (suspected) exposure to other viral communicable diseases; Z79.899 Other long term (current) drug therapy
CPT/HCPCS: 0241U; 29125; 71046; 73100; 99283

== ENCOUNTER 2023-02-26 11:16 | Outpatient (REF) | payer MEDICAID, SELFPAY ==
[2023-02-26 11:26] LABS: MANUAL DIFF FLAG NO
[2023-02-26 13:06] LABS: Basophils Absolute Auto 0.1 X10*3/uL (0.0-0.2); Basophils Percent Auto 0.7 % (0-2); Eosinophils Absolute Auto 0.1 X10*3/uL (0.0-0.4); Eosinophils Percent Auto 1.8 % (0-4); Hematocrit 48.4 % (42.0-52.0); Hemoglobin 15.8 g/dl (14.0-18.0); Imm Gran Abs Auto 0.02 X10*3/uL (0.00-0.03); Imm Gran Pct Auto 0.3 % (0.0-0.4); Lymphocytes Absolute Auto 1.4 X10*3/uL (1.2-4.9); Lymphocytes Percent Auto 18.5 % (20-40); Mean Corpuscular HGB Conc 32.6 g/dl (31.0-36.0); Mean Corpuscular Hemoglobin 27.8 pg (27.0-33.0); Mean Corpuscular Volume 85.2 fL (80.0-98.0); Mean Platelet Volume 10.9 fL (9.4-12.4); Monocytes Absolute Auto 0.6 X10*3/uL (0.1-1.2); Monocytes Percent Auto 7.9 % (2-11); Neutrophils Absolute Auto 5.2 x10*3/uL (2.0-8.3); Neutrophils Percent Auto 70.8 % (45-73); Platelet Count 215 X10*3/uL (160-400); Red Blood Count 5.68 X10*6/uL (4.60-5.80); Red Cell Distribution Width 13.2 % (11.0-16.0); White Blood Count 7.3 X10*3/uL (4.8-10.8)
== END 2023-02-26 11:17 | disposition home or self-care (01) ==
LOC: HO.LAB 11:16
PROVIDERS: Visit Provider Physician Assistant
DX: R13.10 Dysphagia, unspecified (principal); K20.90 Esophagitis, unspecified without bleeding; K21.9 Gastro-esophageal reflux disease without esophagitis
CPT/HCPCS: 36415; 85025

== ENCOUNTER 2023-03-15 09:17 | Emergency (ER) | payer SELFPAY ==
[2023-03-15 09:37] VITALS: BP 113/83; PULSE 108; RESP 18; TEMP 37.4; O2SAT 97; BMI 23.3
--- NOTE | 2023-03-15 10:40 | ED.GENADULT ---
HPI - General Adult General Chief complaint: Upper Respiratory Symptoms Stated complaint: body pain all over Time Seen by Provider: 03/15/23 10:39 Source: patient and interpreter and translator Mode of arrival: ambulatory Limitations: language barrier History of Present Illness HPI narrative: Patient is a 42 year old assigned male at with a history of GERD presenting to the emergency department today with fever and body aches. Patient states that over the last day he has had a fever and body aches. Patient denies any dizziness, lightheadedness, abdominal pain, nausea, vomiting, chills, blurry vision, double vision, loss of vision, chest pain, difficulty breathing, shortness of breath, back pain, night sweats, pain with urination, increased urinary frequency, increased urinary urgency, blood in his urine or stool, syncope or a near syncopal episode, recent trauma or falls, bowel incontinence, bladder incontinence, bowel retention, bladder retention, or any other complaints at this time. Onset (ago): day(s) (1) Severity: mild Severity scale (1-10): 2 Relieving factors: none Exacerbating factors: none Associated symptoms: fever/chills Treatments prior to arrival: other (tylenol) Related Data Home Medications Medication Instructions Recorded Confirmed lidocaine 5 % topical patch 1 patch topical DAILY PRN pain 02/20/23 (Lidoderm) ondansetron 4 mg disintegrating 4 mg PO Q8H PRN nausea and vomiting 02/20/23 tablet Previous Rx's Medication Instructions Recorded lansoprazole 30 mg capsule,delayed 30 mg PO ONCE 30 days #30 caps 11/01/22 release pantoprazole 40 mg tablet,delayed 40 mg PO DAILY 30 days #30 tabs 11/07/22 release sucralfate 100 mg/mL oral 1 g (10 mL) PO QIDACHS 8 weeks 02/20/23 suspension (Carafate) #420 mL benzonatate 100 mg capsule 100 mg PO BID PRN cough 7 days #14 02/26/23 caps prednisone 20 mg tablet 20 mg PO DAILY 7 days #7 tabs 02/26/23 Allergies Allergy/AdvReac Type Severity Reaction Status Date / Time No Known Drug Allergies Allergy Unknown Verified 03/15/23 09:35 Review of Systems Constitutional: Constitutional: Reports no additional constitutional complaints, Reports body ache(s), Denies chills, Reports fever(s) and Denies night sweats Eyes: Eyes: Reports no additional eye complaints, Denies blurry vision, Denies change in vision, Denies diplopia, Denies eye discharge, Denies loss of vision and Denies eye pain ENT: Denies dizziness Cardiovascular: Cardiovascular: Reports no additional cardiovascular complaints, Denies chest pain, Denies lightheadedness, Denies Loss of Consciousness and Denies dyspnea Respiratory: Respiratory: Reports no additional respiratory complaints and Denies dyspnea Gastrointestinal: Gastrointestinal: Reports no additional gastrointestinal complaints, Denies abdominal pain, Denies melena, Denies hematochezia, Denies change in bowel habits and Denies change in stool character Genitourinary: Genitourinary: Reports no additional male genitourinary complaints, Denies hematuria, Denies oliguria, Denies difficulty urinating, Denies dysuria, Denies urinary frequency, Denies urinary hesitancy, Denies urinary incontinence and Denies urinary urgency Musculoskeletal: Musculoskeletal: Reports no additional musculoskeletal complaints, Denies numbness and Denies tingling Neurologic: Denies dizziness, Denies loss of vision, Denies numbness and Denies tingling Psychiatric: Psychiatric: Reports no additional psychiatric complaints Endocrine: Endocrine: Reports no additional endocrine complaints Hematologic/Lymphatic: Hematologic/Lymphatic: Reports no additional hematologic/lymphatic complaints Allergic/Immunologic: Allergic/Immunologic: Reports no additional allergic/immunologic complaints PMFSH Past Medical History Attestation statement: The following information was validated with the patient. Source: old records reviewed and nursing notes reviewed Onset Date is defined in the Problem List Problems that require an onset date and time if occurred within 24 hrs of arrival to the ED Aortic Dissection and Rupture; Neurologic impairment; Cardiopulmonary Arrest; Endotracheal Intubation; Insertion or Replacement of Mechanical Circulatory Assist Device Medical History Postnasal drip Dysphagia Early satiety Esophagitis Varicose vein of scrotum Hiatal hernia Acid reflux Ulcer Surgical History History of esophagogastroduodenoscopy (EGD) Hx of colonoscopy Family History Family History Unknown No problems noted. Social History Social History Household Members: Spouse and Children Alcohol intake: never Patient Tobacco Use Status: Never used Tobacco Advance Directives: No Advance Directives Information Provided: Yes Current occupation: [employer] Physical Exam ED Vital Signs: Vital Signs - 24 hr 03/15/23 09:37 Temperature 99.4 F Pulse Rate 108 H Respiratory Rate 18 Blood Pressure 113/83 Pulse Oximetry 97 Oxygen Delivery Method Room Air BMI result Body Mass Index 23.3 Const General: cooperative, no acute distress, alert and awake Nutritional Appearance: well nourished Orientation/consciousness: patient oriented x3 Limitations: no limitations HENMT Head: Yes normal to inspection and Yes atraumatic Ears: hearing grossly normal bilaterally and external ears normal General nose exam: Normal external nose present, no nasal discharge noted and no epistaxis Face and sinus: Yes normal facial exam, No abrasion and No laceration Mouth: Normal oral and palatal mucosa present, no drooling and no muffled voice Eyes General: appearance normal, both eyes and all related structures Periorbital: periorbital findings normal Eyelids: Yes eyelids normal Conjunctivae: conjunctivae normal Pupils: Equal, round and reactive pupils present EOM: EOMs intact bilaterally Neck Neck: Yes normal visual inspection, Yes full ROM and Yes no lymphadenopathy Chest Chest palpation & inspection: normal inspection of the chest Resp Effort & Inspection: normal respiratory effort and able to speak in complete sentences GI Inspection: Yes normal to inspection Neuro General: patient oriented x3 and moves all extremities Cranial nerves: Yes Equal, round and reactive pupils present Cognition (Neuro): normal cognition Motor exam (neuro): 5/5 motor strength present throughout Sensory Exam: Normal double simultaneous stimulation for sensation Coordination: [id number] test normal Extrem General: Yes normal to inspection, Yes full ROM and Yes capillary refill normal Psych Appearance: grossly normal Mental Status: mental status grossly normal Affect: normal affect Attitude: cooperative Thought process: Normal thought process present Thought content: Normal thought content present Insight: Good insight present (Psych) Medical Decision Making Medical Decision Making MDM Narrative: Patient is a 42 year old assigned male at with a history of GERD presenting to the emergency department today with a fever and body aches. Patient's physical exam was unremarkable. Patient's COVID-19 test was positive. Patient's influenza and RSV tests were negative. I explained my physical exam findings as well as all test results to the patient. I answered all questions asked by the patient. I stressed the importance of the patient taking his medication as prescribed. I stressed the importance of the patient following up with his primary care provider. I stressed the importance of the patient returning to the emergency department immediately if his symptoms were to worsen or if he were to develop any dizziness, shortness of breath, difficulty breathing, chest pain, blurry vision, loss of vision, nausea, vomiting, abdominal pain, fever, chills, back pain, or any other complaints. Patient verbalized agreement and understanding with this treatment plan and discharge. Differential Diagnosis Differential Diagnoses: The differential diagnosis associated with the presentation includes COVID-19 Influenza RSV Admission/Observation Consideration of admission/observation: Escalation of care including admission/observation considered Patient would have been admitted to the hospital had his work up had any findings where hospital admission was appropriate and his clinical presentation warranted hospital admission. Lab Data [facility] Lab Attestation statement: I reviewed the patient's lab results. My interpretation of these results are in the [facility] Rationale portion of this note. Labs: Lab Results 03/15/23 Range/Units 09:50 Influenza Type A (PCR) NEGATIVE (Negative) Influenza Type B (PCR) NEGATIVE (Negative) RSV RNA Qual (PCR) NEGATIVE (Negative) SARS-CoV-2 RNA (RT-PCR) POSITIVE A (Negative) Discharge Plan Discharge Clinical Impression: COVID-19 Patient Disposition: Home, Self-Care Instructions: COVID-19 (Coronavirus Disease 2019) (ED) Additional Instructions: Follow up with your primary care provider. Return to the emergency department immediately if your symptoms worsen or if you develop any dizziness, shortness of breath, difficulty breathing, chest pain, blurry vision, loss of vision, nausea, vomiting, abdominal pain, fever, chills, back pain, or any other complaints. Prescriptions: No Action lansoprazole 30 mg capsule,delayed release(DR/EC) 30 mg PO ONCE 30 Days Qty: 30 6RF prednisone 20 mg tablet 20 mg PO DAILY 7 Days Qty: 7 0RF benzonatate 100 mg capsule 100 mg PO BID PRN (Reason: cough) 7 Days Qty: 14 0RF pantoprazole 40 mg tablet,delayed release (DR/EC) 40 mg PO DAILY 30 Days Qty: 30 5RF lidocaine [Lidoderm] 5 % adhesive patch,medicated 1 patch topical DAILY PRN (Reason: pain) Rx Instructions: leave on most painful area for up to 12 hrs ondansetron 4 mg tablet,disintegrating 4 mg PO Q8H PRN (Reason: nausea and vomiting) sucralfate [Carafate] 100 mg/mL suspension 1 g PO QIDACHS 56 Days Qty: 420 0RF Referrals: Blanca Quinn, [employer] [Primary Care Provider] - Stand Alone Forms: Work/School Release Interventions: ED Discharge Assessment Last Done: 03/15/23 11:13 Discharge Date/Time: 03/15/23 11:14 Print Language: Dutch
== END 2023-03-15 11:14 | disposition home or self-care (01) ==
PROVIDERS: Emergency Provider Student in an Organized Health Care Education/Training Program; PCP Nurse Practitioner Primary Care
DX: U07.1 COVID-19 (principal)
CPT/HCPCS: 0241U; 99283

== ENCOUNTER 2023-05-21 10:35 | Day surgery (SDC) | payer OTHER, SELFPAY ==
--- NOTE | 2023-05-19 13:21 | HO.ANESPROP2 ---
Documented by User: Odessa Main NP 05/19/23 13:21 HPI - Anesthesia Eval Consult details Narrative: 42yo M for Upper Endoscopy [facility] Active Problems Active Problems: All Active Problems (Updated 04/05/23 @ 14:29 by Bird Sweet MD) Pain with ejaculation (Acute) Blood in semen (Acute) COVID-19 (Acute) Hiatal hernia (Acute) Esophagitis (Acute) Acid reflux (Acute) Past Medical History Medical History Postnasal drip Dysphagia Early satiety Esophagitis Varicose vein of scrotum Hiatal hernia Acid reflux Ulcer Family History Family History Unknown No problems noted. Family history of problems with anesthesia: No Surgical History Surgical History History of esophagogastroduodenoscopy (EGD) Hx of colonoscopy History of Problems with Anesthesia: No Social History Social History Household Members: Spouse and Children Alcohol intake: never Patient Tobacco Use Status: Never used Tobacco Advance Directives: No Advance Directives Information Provided: Yes Current occupation: [employer] Allergies Allergy/AdvReac Type Severity Reaction Status Date / Time No Known Drug Allergies Allergy Unknown Verified 05/21/23 11:42 Home Medications Medication Instructions Recorded Confirmed Last Taken Type lidocaine 5 % topical patch 1 patch topical DAILY PRN pain 02/20/23 05/21/23 Unknown History (Lidoderm) ondansetron 4 mg disintegrating 4 mg PO Q8H PRN nausea and vomiting 02/20/23 05/21/23 Unknown History tablet Assessment and Plan Assessment Anesthesia Assessment: Chart Reviewed Final Anesthetic Review Family History of Problems with Anesthesia: No History of Problems with Anesthesia: No Documented by User: Sam Del Angel MD 05/21/23 12:11 [facility] Past Medical History Medical History Postnasal drip Dysphagia Early satiety Esophagitis Varicose vein of scrotum Hiatal hernia Acid reflux Ulcer Family History Family History Unknown No problems noted. Surgical History Surgical History History of esophagogastroduodenoscopy (EGD) Hx of colonoscopy Social History Social History Household Members: Spouse and Children Alcohol intake: never Patient Tobacco Use Status: Never used Tobacco Advance Directives: No Advance Directives Information Provided: Yes Current occupation: [employer] Allergies Allergy/AdvReac Type Severity Reaction Status Date / Time No Known Drug Allergies Allergy Unknown Verified 05/21/23 11:42 Home Medications Medication Instructions Recorded Confirmed Last Taken Type lidocaine 5 % topical patch 1 patch topical DAILY PRN pain 02/20/23 05/21/23 Unknown History (Lidoderm) ondansetron 4 mg disintegrating 4 mg PO Q8H PRN nausea and vomiting 02/20/23 05/21/23 Unknown History tablet Exam Airway Mallampati Class: II TM Dist: >3cm Neck ROM: Full Heart: ok Lungs: ok Assessment and Plan Assessment Anesthesia Assessment: Anesthesia Plan Discussed Final Anesthetic Review NPO: Yes ASA Class: II Final Preanesthetic Review: No Changes in Pt Med Stat, Meds/Allgs Chart Reviewed, Consent Obtained/Reviewed and Anes Risks/Benef Reviewed Patient Risk: Low Procedure Risk: Low Anesthetic Plan Anesthetic Plan: Agree w/ Assess. and Plan and TIVA Disposition: Standard PACU
[2023-05-19 15:04] VITALS: BMI 23.7
[2023-05-21 11:47] VITALS: BMI 23.7
[2023-05-21] MEDS: Lactated Ringers 1,000 ML 100 ML IVCONT (12:08)
--- NOTE | 2023-05-21 12:08 | MHC.SHP ---
Pre-Procedural Eval Section A - 24 Hr Update-Section A only Date of Service: 05/21/23 Section B - Complete if H&P > 30 days Chief Complaint: Esophagitis, unspecified without bleeding Relevant Family History (Specify if Yes): No Relevant Social History: None Present Medications: see Short Stay Collaborative assessment Medical History: Significant History (Postnasal drip Dysphagia Early satiety Esophagitis Varicose vein of scrotum Hiatal hernia Acid reflux Ulcer) History of Previous Operations: Relevant previous surgery/procedure and date(s) (History of esophagogastroduodenoscopy (EGD) Hx of colonoscopy) Allergies: Allergies Allergy/AdvReac Type Severity Reaction Status Date / Time No Known Drug Allergies Allergy Unknown Verified 05/21/23 11:42 Review of Systems Sugical H&P ROS: Negative: Constitution, Cardiovascular, Respiratory, Neurological, Psychiatric, Hem-Onc, Allergic/Immunologic, Gastrointestinal, Genitourinary, Musculoskeletal, Integumentary, Endocrine and Eyes/Ears/Nose/Throat Exam Surgical H&P Exam: Normal: HEENT, Normal: Heart, Normal: Lungs, Normal: Extremities, Normal: Abdomen, Normal: Skin and Normal: Neurological Plan Diagnosis/Plan: Unchanged I have reviewed the history and physical and performed a pertinent physical examination on my patient. No changes have occurred unless specified. Time Spent With Patient Time: Total time managing care of this patient today ____ minutes.
--- NOTE | 2023-05-21 12:09 | W.PM.OPN ---
Operative Note Operative Note Date of Service: 05/21/23 Narrative: Procedure Description: EGD Indication: dysphagia Anesthesia: MAC FLEXIBLE TRANSORAL UPPER GASTROINTESTINAL ENDOSCOPY UPPER ENDOSCOPY Consent: Indications for the procedure and potential complications of bleeding, perforation, reaction to medications and missed diagnosis were discussed with the patient and informed consent was obtained. Instrument: Olympus GIF H 190 J mid size upper endoscope Monitoring: Vital signs and clinical assessment, continuous EKG monitoring, Pulse oximetry, Carbon Dioxide monitoring and blood pressure monitoring were done throughout the procedure. Procedure: The patient was placed in the left lateral decubitis position and pre-procedure medications were administered and a bite block was placed. The endoscope was inserted into the mouth and advanced under direct vision to the third part of duodenum. A careful inspection was made as the upper endoscope was withdrawn including a retroflexed examination of the proximal stomach; Findings and interventions are described below. Findings: Larynx:normal Esophagus: GE junction at 35 cm, diaphragm hiatus at 40 cm, consistent with 5 cm sliding hiatal hernia, erosive esophagitis changes noted around the GEJ with schatzki ring. Balloon dilation done at LES and UES to 19 mm, no tears seen Stomach: linear streaky gastritis with small erosions . Biopsies were obtained. Grade 3 flap valve on retroflexed examination of the cardia with lax LES. The pyloric outlet was dilated using wire guided technique to 20 mm with the balloon. (patient was complaining of food sticking at the epigastric location) Duodenum: Normal bulb and descending duodenum, Intervention: Biopsies as noted above, balloon dilation Impression/Findings: gastritis erosive esophagitis patulous GEJ hiatal hernia PLAN: ensure PPI compliance GERD precautions consider surgical referral for hernia repair.
[2023-05-21 12:28] VITALS: BP 109/81; PULSE 109; RESP 16; TEMP 36.3; O2SAT 98
[2023-05-21 12:43] VITALS: BP 114/72; PULSE 89; RESP 16; O2SAT 98
[2023-05-21 12:58] VITALS: BP 115/73; PULSE 88; RESP 14; TEMP 36.3; O2SAT 100
== END 2023-05-21 13:53 | disposition home or self-care (01) ==
PROVIDERS: PCP Nurse Practitioner Primary Care; Visit Provider Internal Medicine Gastroenterology
PROC: 0DJ08ZZ Inspection of Upper Intestinal Tract, Via Natural or Artificial Opening Endoscopic (ICD-10-PCS; CPT 43235; principal; 2023-05-21 14:30)
DX: K29.70 Gastritis, unspecified, without bleeding (principal); K20.80 Other esophagitis without bleeding; K22.89 Other specified disease of esophagus; K22.2 Esophageal obstruction; K44.9 Diaphragmatic hernia without obstruction or gangrene; R13.10 Dysphagia, unspecified; K21.9 Gastro-esophageal reflux disease without esophagitis; Z79.899 Other long term (current) drug therapy
CPT/HCPCS: 43249; 43245; 43239; 88305; 88313; 88342; C1726; J2704

== ENCOUNTER → 2023-05-21 10:35 | Outpatient (BNV) | payer OTHER, SELFPAY | PROVIDERS: PCP Nurse Practitioner Primary Care; Visit Provider Internal Medicine Gastroenterology | DX: K22.2 Esophageal obstruction (principal); K31.1 Adult hypertrophic pyloric stenosis; K29.70 Gastritis, unspecified, without bleeding; K20.90 Esophagitis, unspecified without bleeding | CPT/HCPCS: 43239; 43245; 43249 ==

== ENCOUNTER 2023-06-04 11:38 | Outpatient (AMB) | payer OTHER, SELFPAY ==
--- NOTE | 2023-06-04 11:39 | A.OFFVIS_ITS ---
Intake Vital Signs 06/04/23 11:41 Height 5 ft 11 in Weight 173 lb BMI 24.1 BP 115/74 Blood Pressure Location Lt brachial Position Sitting Pulse 91 Intake Visit Reasons: s/p Egd Hansen Intake Note: Patient follow up for acid reflex and EGD results. Patient cc: acid reflex with burning sensation, abdominal pain,between diarrhea and constipation and some dates with dysphasia. Medical Recruiter Required: Yes Medical Recruiter Name: Layla Medina [id number] Accompanied by: Spouse Allergies No Known Drug Allergies Allergy (Verified 06/04/23 11:39) Unknown Medication List - Last Reconciled 06/04/23 by Alexa Miranda PA-C lansoprazole 30 mg PO ONCE 30 days lidocaine 5% (Lidoderm) 1 patch topical DAILY PRN sucralfate (Carafate) 1 g (10 mL) PO QIDACHS 8 weeks HPI HPI Comments History of Present Illness Details A 42 y/o male f/u after EGD for dysphagia-he tolerated procedure well he is here today with his Medical Recruiter device used Dr. Vaishali dunn ring- ballon dilation- no dysphagia Continues with heartburn-lansoprazole 30 mg daily No nausea, vomiting hematemesis hematochezia fever chills PFSH Medical History Postnasal drip Dysphagia Early satiety Esophagitis Varicose vein of scrotum Hiatal hernia Acid reflux Ulcer Surgical History History of esophagogastroduodenoscopy (EGD) Hx of colonoscopy Family History Unknown No problems noted. Social History Household Members: Spouse and Children Alcohol intake: never Patient Tobacco Use Status: Never used Tobacco Current occupation: [employer] Review of Systems Const All systems reviewed & are unremarkable except as noted in HPI and below ENT Denies dysphagia Card Denies chest pain and Denies dyspnea Resp Denies dyspnea GI Denies abdominal pain, Denies dysphagia, Reports heartburn, Denies nausea and Denies vomiting Physical Exam Vital Signs: Last Vital Signs Pulse 91 06/04/23 11:41 BP 115/74 06/04/23 11:41 BMI result Body Mass Index 24.1 Const General: cooperative, healthy appearing and comfortable Orientation/consciousness: patient oriented x3 Limitations: no limitations Neuro General: patient oriented x3 Extrem General: Yes full ROM Psych Appearance: grossly normal and well kempt Mental Status: mental status grossly normal Speech and movement: Normal speech and movement present and Clear speech present Affect: Labile affect present Results Reviewed Results Reviewed: Impression/Findings: gastritis erosive esophagitis patulous GEJ hiatal hernia PLAN: ensure PPI compliance GERD precautions consider surgical referral for hernia repair. ge/Sex: 42/M Attending: Alfonso Hansen MD : 1980 Submitted by: Alfonso Hansen MD Copies to: ABILIO MCNAMARA NP MR #: [id number] Status: [facility] Collected: 05/21/23 Location: [facility] Received: 05/21/23 Diagnosis A. Stomach, biopsy: Oxyntic mucosa with mild chronic inactive inflammation; no Helicobacter organisms seen. B. Esophagus, distal, biopsy: Active esophagitis (maximum eosinophil count 9 per high powered field). C. Esophagus, proximal, biopsy: Squamous epithelium within normal limits; no inflammation seen. Clinical History Pre-Op Dx: Esophagitis Post-Op Dx: Hiatal hernia, gastritis, patulous LES, erosive esophagitis, Schatski's ring, Microscopic Description A-C. Microscopic sections examined. No metaplastic changes are seen, supported by AB/PAS stains (A); no Helicobacter organisms are seen, supported by H. pylori immunostain (A). Material Received A. Stomach B. Distal esophagus C. Proximal esophagus Gross Description Received in 3 parts. Part A: Received in formalin labeled ?stomach? are 2 hernandez irregular tissue fragments each measuring 0.3 cm, submitted in toto in a cassette labeled A. Part B: Received in formalin labeled ?distal esophagus? are 3 cartagena-white irregular and rectangular tissue fragments ranging from 0.3-0.5 cm, submitted in toto in a cassette labeled B. Part C: Received in formalin labeled ?proximal esophagus? are 2 cartagena-white irregular and rectangular tissue fragments measuring 0.2 and 0.35 cm, submitted in toto in a cassette labeled C. CEDS Special studies ordered and performed: immunostain for H. pylori on A; AB/PAS stains on A Copies To Alfonso Hansen MD Patient: Gurmeet Lancaster Age/Sex: 42/M MR#: [id number] Page 1 of 2 april: Suresh Gurmeet Barnhart Age/Sex: 40/M Attending: Alfonso Hansen MD : 1980 Submitted by: Alfonso Hansen MD Copies to: ABILIO MCNAMARA NP MR #: [id number] Status: [facility] Collected: 05/17/21 Location: [facility] Received: 05/17/21 Diagnosis A. Duodenum, biopsy: Duodenal mucosa within normal limits. B. Stomach, biopsy: Antral-type and oxyntic mucosa with mild chronic inactive inflammation; no Helicobacter organisms seen. C. GE junction, biopsy: - Cardiac-type mucosa with moderate chronic inactive inflammation; no intestinal metaplasia seen. - Chronic active esophagitis (maximum eosinophil count 14 per high powered fiel d). D. Esophagus, random, biopsy: Squamous mucosa within normal limits; no inflammation seen. Clinical History Pre-Op Dx: Abdominal pain Post-Op Dx: Erosive esophagitis, hiatal hernia Microscopic Description A-D. Microscopic sections reviewed. Immunostain for H. pylori is non-reactive (B). Material Received A: Duodenum bx's B: Stomach bx's C: GE junction bx's D: Random esophagus bx's Gross Description Received in four parts. Part A: Received in formalin labeled Duodenum bx's are three glistening, semitranslucent, soft, hernandez- pink, irregular tissue fragments, ranging from 0.25 to 0.3 cm. in greatest dimension, which are submitted in toto in a single cassette labeled A. Part B: Received in formalin labeled Stomach bx's are two glistening, semitranslucent, soft, hyperemic, hernandez-pink, rectangular tissue fragments, each measuring 0.35 cm. in greatest dimension, which are submitted in toto in a single cassette labeled B. Part C: Received in formalin labeled GE junction bx's are four glistening, semitranslucent, soft, hernandez- Patient: Gurmeet Lancaster Age/Sex: 40/M MR#: [id number] Page 1 of 2 Assessment & Plan Assessment & Plan (1) Esophagitis: Comment: History of esophagitis, EGD 2017 --repeat EGD Code(s): K20.90 - Esophagitis, unspecified without bleeding Plan: Reviewed procedure report, pathology recommendation (2) Acid reflux: Comment: Carafate 1 g bid x4 wks Continue lansoprazole 30 mg Avoid culprits-reviewed reflux precautions Code(s): K21.9 - Gastro-esophageal reflux disease without esophagitis (3) Hiatal hernia: Code(s): K44.9 - Diaphragmatic hernia without obstruction or gangrene Plan: Has appointment for surgical consult 06/16/23 Plan Continue lansoprazole Carafate b.i.d. x4 Follow-up for surgical consult as scheduled Reflux precautions review Encouraged to call with questions or concerns Eat slowly chew well Medications: New sucralfate 1 g (10 mL) PO BID 4 weeks 560 mL 0RF Patient Instructions: Continue lansoprazole Carafate b.i.d. x4 Follow-up for surgical consult as scheduled Reflux precautions review Encouraged to call with questions or concerns Eat slowly chew well Coding Level of Care Code Est Pt Level 3 (96511) Diagnoses Esophagitis K20.90 Acid reflux K21.9 Hiatal hernia K44.9 Time Spent (min) 30 Comment [id number]
[2023-06-04 11:41] VITALS: BP 115/74; PULSE 91; BMI 24.1
== END 2023-06-04 13:04 | disposition home or self-care (01) ==
PROVIDERS: PCP Nurse Practitioner Primary Care; Visit Provider Physician Assistant
DX: K20.90 Esophagitis, unspecified without bleeding (principal); K21.9 Gastro-esophageal reflux disease without esophagitis; K44.9 Diaphragmatic hernia without obstruction or gangrene
CPT/HCPCS: 99213

== ENCOUNTER → 2023-06-04 11:38 | Outpatient (BNVA) | payer OTHER, SELFPAY | PROVIDERS: PCP Nurse Practitioner Primary Care; Visit Provider Physician Assistant | DX: K20.90 Esophagitis, unspecified without bleeding (principal); K21.9 Gastro-esophageal reflux disease without esophagitis; K44.9 Diaphragmatic hernia without obstruction or gangrene | CPT/HCPCS: 99212 ==

== ENCOUNTER 2023-06-05 15:25 | Outpatient (AMB) | payer OTHER, SELFPAY ==
--- NOTE | 2023-06-05 15:26 | A.OFFVIS_ITS ---
Intake Intake Visit Reasons: Urinary Issues Intake Note: Patient presents for a follow-up on Urinary Concern: Meds- None Allergies to Antibiotic- No Known Allergies Blood Thinner- None Patient Symptoms: Pelvic Pain, Dysuria, Bubbles in urine & dark urine. Post Void Residual: 0 mL Director Compensation Required: Yes Director Compensation Language: [place] Citizen Information Interpreted: non-clinical & clinical Accompanied by: Significant Other Allergies No Known Drug Allergies Allergy (Verified 06/05/23 15:27) Unknown Medication List - Last Reconciled 06/05/23 by Bird Sweet MD lansoprazole 30 mg PO ONCE 30 days lidocaine 5% (Lidoderm) 1 patch topical DAILY PRN loratadine 10 mg PO DAILY PRN sucralfate (Carafate) 1 g (10 mL) PO QIDACHS 8 weeks sucralfate 1 g (10 mL) PO BID 4 weeks tamsulosin (Flomax) 0.4 mg PO BEDTIME HPI HPI Comments History of Present Illness Details 06/05/2023-Gurmeet returns today stating th at urinary symptoms have returned he is having pain with ejaculation. He feels pressure in the lower abdomen. Certified supervisor metal placing present. Examination prostate tender to palpation testicles are within nontender. Bladder scan PVR 0 mL. I discussed lifestyle changes, behavioral modification. Avoid bladder dietary irritants. He was given a pamphlet. He admits to significant coffee use during the day. Old trial Flomax 0.4 mg daily. Discussed side effect of retrograde ejaculation. We will check renal and bladder ultrasound. Review of chart: 02/20/2023--Gurmeet is a 42 year old male faroese speaking, Certified supervisor metal placing present who is here with complaints of dark colored semen. is present. He states he saw a Urologist in the past about a year ago, he also had intermittent pain with ejaculation. and was treated with abx's on repeated episodes which resolved the symptoms. He denies dysuria currently and in further discussion he states that he has not had any recent episodes of blood in the semen or pain with ejaculation.I have discussed that his symptoms are suggestive of prostatitis. Currently he is asymptomatic. Plan - He will call if he has recurrent symptoms 06/06/2023. PLAN: Behavioral modificati on. Avoid dietary irritants. Flomax 0.4 mg daily. Renal bladder ultrasound. Follow-up in 3 months [facility] Medical History Postnasal drip Dysphagia Early satiety Esophagitis Varicose vein of scrotum Hiatal hernia Acid reflux Ulcer Surgical History History of esophagogastroduodenoscopy (EGD) Hx of colonoscopy Family History Unknown No problems noted. Social History Household Members: Spouse and Children Alcohol intake: never Patient Tobacco Use Status: Never used Tobacco Current occupation: [employer] Review of Systems Const All systems reviewed & are unremarkable except as noted in HPI and below Reports no additional complaints Eyes Reports no additional complaints ENT Reports no additional complaints Card Reports no additional complaints Resp Reports no additional complaints GI Reports no additional complaints Reports as per HPI Musc Reports no additional complaints Skin/Breast Reports system reviewed and no additional complaints, except as documented Neuro Reports no additional complaints Psych Reports no additional complaints Endo Reports no additional complaints Homero/Lymph Reports no additional complaints Aller/Immun Reports no additional complaints Physical Exam Const General: healthy appearing, no acute distress and well developed Orientation/consciousness: patient oriented x3 HEENT Head: Yes normocephalic and Yes atraumatic Eyes Conjunctivae: conjunctivae normal Neck Neck: Yes normal visual inspection Chest Chest palpation & inspection: normal inspection of the chest Resp Effort & Inspection: normal respiratory effort Cardio Rate: regular rate GI Inspection: Yes normal to inspection Palpation (GI): Soft to palpation Other: Prostate Exam: Tender to palpation, non boggy Penis: normal penis Scrotum: scrotum normal Skin General skin exam: no rashes or lesions noted Neuro General: patient oriented x3 Extrem General: No pedal edema Psych Appearance: grossly normal Affect: normal affect Office Procedures Post Void Residual Post Residual Void Post Void Residual (PVR): 0 [id number] Void Residual by ultrasound Results AMB Urinalysis, Automated UA Leukoctes 0 Alden/uL Last Edit by YANA Dykes on 06/05/23 15:47 UA Nitrite Negative Last Edit by Juice Myers [facility] on 06/05/23 15:47 UA Urobilinogen 0.2 mg/dL Last Edit by Juice Myers [facility] on 06/05/23 15:4 7 UA Protein 15 mg/dL Last Edit by Juice Myers [facility] on 06/05/23 15:47 UA pH 7.0 Last Edit by Juice Myers [facility] on 06/05/23 15:47 UA Blood 0 Sabino/uL Last Edit by Juice Myers [facility] on 06/05/23 15:47 UA Specific Ulysses 1.015 Last Edit by Juice Myers [facility] on 06/05/23 15: 47 UA Ketone Negative Last Edit by Juice Myers [facility] on 06/05/23 15:47 UA Bilirubin 1 mg/dL Last Edit by Juice Myers [facility] on 06/05/23 15:47 1+ Juice Myers 06/05/23 15:47 UA Glucose 0 mg/dL Last Edit by Juice Myers French on 06/05/23 15:47 Results Reviewed Results Reviewed: Laboratory Last Values Urine pH (Auto) 7.0 06/05/23 15:39 Specific Ulysses (Auto) 1.015 06/05/23 15:39 Urine Protein (Auto) 15 mg/dL 06/05/23 15:39 Glucose (UA)(Auto) 0 mg/dL 06/05/23 15:39 Urine Ketones (Auto) Negative 06/05/23 15:39 Urine Blood (Auto) 0 Sabino/uL 06/05/23 15:39 Urine Nitrite (Auto) Negative 06/05/23 15:39 Urine Bilirubin (Auto) 1 mg/dL 06/05/23 15:39 Urine Urobilinogen (Auto) 0.2 mg/dL 06/05/23 15:39 Leukocyte Esterase (Auto) 0 Alden/uL 06/05/23 15:39 Assessment & Plan Assessment & Plan (1) Blood in semen: Code(s): R36.1 - Hematospermia (2) Pain with ejaculation: Code(s): N53.12 - Painful ejaculation (3) Sensation of pressure in bladder area: Code(s): R39.89 - Other symptoms and signs involving the genitourinary system (4) Prostatitis: Code(s): N41.9 - Inflammatory disease of prostate, unspecified Plan Behavioral modification. Avoid dietary irritants. Flomax 0.4 mg daily. Renal bladder ultrasound. Follow-up in 3 months Orders: Orders AMB Urinalysis Automated Today Z13.9 - Encounter for screening, unspecified AMB Post Void Residual by ultrasound Today N39.8 - Other specified disorders of urinary system US retroperitoneal comp 2 Months R39.89 - Other symptoms and signs involving the genitourinary system Medications: New tamsulosin (Flomax) 0.4 mg PO BEDTIME 30 caps 4RF Patient Instructions: The patient had an opportunity to ask questions regarding treatment plan. All questions were answered. No major barriers to understanding were identified. The patient expressed understanding and agreement with the above treatment plan. The patient is aware they should contact our office by phone for worsening of their current condition or the appearance of new symptoms. Compliance is encouraged with any medications and followup testing that is ordered. It is a privilege to be allowed the opportunity to participate in the urologic care of your patient. If you have any questions or concerns regarding treatment for the above conditions please do not hesitate to contact me. The office telephone contact is [phone]. This note is constructed in part using voice recognition software. While every effort has been made to ensure accuracy textile machine operator errors may have been included. Yours sincerely, Bird Sweet MD Coding Level of Care Code Est Pt Level 4 (41094) Diagnoses Blood in semen R36.1 Pain with ejaculation N53.12 Sensation of pressure in bladder area R39.89 Prostatitis N41.9 CPT Codes Post Residual Void - PVR CPT Code: 90620-Qspa Void Residual by ultrasound ([id number])
== END 2023-06-05 16:19 | disposition home or self-care (01) ==
PROVIDERS: PCP Nurse Practitioner Primary Care; Visit Provider Urology
DX: R36.1 Hematospermia (principal); N53.12 Painful ejaculation; R39.89 Other symptoms and signs involving the genitourinary system; N41.9 Inflammatory disease of prostate, unspecified; Z13.9 Encounter for screening, unspecified
CPT/HCPCS: 99214

== ENCOUNTER → 2023-06-05 15:25 | Outpatient (BNVA) | payer OTHER, SELFPAY | PROVIDERS: PCP Nurse Practitioner Primary Care; Visit Provider Urology | DX: R36.1 Hematospermia (principal); R39.89 Other symptoms and signs involving the genitourinary system; N53.12 Painful ejaculation; N41.9 Inflammatory disease of prostate, unspecified | CPT/HCPCS: 51798; 81003; 99212 ==

== ENCOUNTER 2023-06-16 08:09 | Outpatient (AMB) | payer OTHER, SELFPAY ==
--- NOTE | 2023-06-15 13:01 | A.OFFVIS_ITS ---
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 Hansen for a 5cm hiatal hernia and persistent GERD Patient is complaining of persistent GERD despite continuous use of PPIs and Carafate. Complains also for dysphagia which is temporarily relieved by endoscopic balloon dilation. EGDs have confirmed the presence of a 5cm hiatal hernia and severe esophagitis on biopsies. Recent gastric emptying study was normal Patient does not have cholelithiasis on a recent abdominal ultrasound [facility] Medical History Postnasal drip Dysphagia Early satiety Esophagitis Varicose vein of scrotum Hiatal hernia Acid reflux Ulcer Surgical History History of esophagogastroduodenoscopy (EGD) Hx of colonoscopy Family History Unknown No problems noted. Social History Household Members: Spouse and Children Alcohol intake: never Patient Tobacco Use Status: Never used Tobacco Current occupation: [employer] Physical Exam Vital Signs: BMI result Body Mass Index 24.1 Assessment & Plan Assessment & Plan (1) Hiatal hernia: Code(s): K44.9 - Diaphragmatic hernia without obstruction or gangrene Plan: 1. We discussed the potential etiology of the hernia that could be of traumatic etiology worsened by his weight. We discussed the details of the diaphragmatic hernia repair and the potential technical challenges such as being able to achieve enough mobilization of the esophagus back in the abdomen and being able to close the diaphragmatic muscle (crura) primarily with sutures. We also discussed the possibility of using a biologic mesh to close the hernia defect if the crura cannot be adequately re-approximated primarily with sutures. We also discussed the option of doing a gastropexy or a fundoplication to prevent postoperative reflux and prevent hernia recurrence. As we discussed, I favor the gastropexy as the fundoplication can cause several distrurbing symptoms such as gas-bloating, flatulence, inability to burp which can be bothersome to patients especially for him with a history of IBS. Also we discussed the complexity of a potential hernia recurrence in association with a hernia recurrence. He was in agreement not to have a fundoplication. 2. The patient wants to think about it and he will contact me if he decides to proceed with surgery. Telehealth Telehealth Location of provider rendering services: practice address Location of patient: address on file Patient Identification confirmed using: Name, : Yes Telehealth method: voice only Patient verbally consented to treatment: Yes Patient verbally consented to billing insurance company: Yes Patient informed of any privacy concerns related to visit: Yes Minutes spent on Phone/Video with Pt.: 45 Coding Level of Care Code Tele New Pt Level 4 (88623) Diagnoses Hiatal hernia K44.9 Time Spent (min) 45
[2023-06-15 13:05] VITALS: BMI 24.1
== END 2023-06-16 23:18 | disposition home or self-care (01) ==
LOC: HO.HBS 08:09
PROVIDERS: PCP Nurse Practitioner Primary Care; Visit Provider Surgery
DX: K44.9 Diaphragmatic hernia without obstruction or gangrene (principal)
CPT/HCPCS: 99204

== ENCOUNTER → 2023-06-16 08:09 | Outpatient (BNVA) | payer OTHER, SELFPAY | PROVIDERS: PCP Nurse Practitioner Primary Care; Visit Provider Surgery ==

== ENCOUNTER 2023-07-23 13:20 | Outpatient (REF) | payer OTHER, SELFPAY ==
--- NOTE | ~2023-07-23 | US_ITS ---
EXAMINATION: US RETROPERITONEAL LIMITED (RENAL ONLY) CLINICAL INFORMATION: Dysuria. COMPARISON: Abdominal ultrasound limited 01/09/2021. TECHNIQUE: Real-time imaging of the kidneys. FINDINGS: RIGHT KIDNEY: 10.6 x 5.4 x 5.1 cm (SAG x AP x TRV). The kidney is normal in size, contour, and echogenicity. Renal cortical thickness is normal. No calculi or focal parenchymal lesions. No hydronephrosis. LEFT KIDNEY: 11.5 x 6.4 x 4.6 cm (SAG x AP x TRV). The kidney is normal in size, contour, and echogenicity. Renal cortical thickness is normal. No calculi or focal parenchymal lesions. No hydronephrosis. US/US renal BI IMPRESSION: Normal renal ultrasound.
== END 2023-07-23 13:21 | disposition home or self-care (01) ==
LOC: HO.US 13:20
PROVIDERS: PCP Nurse Practitioner Primary Care; Visit Provider Urology
DX: R39.89 Other symptoms and signs involving the genitourinary system (principal)
CPT/HCPCS: 76775

== ENCOUNTER 2023-08-01 09:53 | Outpatient (REF) | payer OTHER, SELFPAY | END 2023-08-01 09:54 | disposition home or self-care (01) | LOC: HO.US 09:53 | PROVIDERS: PCP Nurse Practitioner Primary Care; Visit Provider Urology | DX: Z13.89 Encounter for screening for other disorder (principal) ==

== ENCOUNTER 2023-08-05 08:21 | Outpatient (REF) | payer OTHER, SELFPAY ==
--- NOTE | ~2023-08-05 | US_ITS ---
EXAMINATION: US PELVIS LIMITED (BLADDER) CLINICAL INFORMATION: Sensation of pressure in bladder area. COMPARISON: Renal ultrasound 07/23/2023. Ultrasound abdomen limited 01/09/2021. TECHNIQUE: Real-time imaging of the bladder. FINDINGS: BLADDER: Well distended. Mild diffuse irregularity and thickening of the bladder wall. Bilateral ureteral jets are demonstrated. Prevoid bladder volume is 156 mL. Postvoid bladder volume is 6.2 mL. ADDITIONAL FINDINGS: Enlarged prostate with volume 38.6 mL. US/US bladder IMPRESSION: 1. Mild diffuse irregularity and thickening of the bladder wall. 2. Enlarged prostate.
== END 2023-08-05 08:22 | disposition home or self-care (01) ==
LOC: HO.US 08:21
PROVIDERS: PCP Nurse Practitioner Primary Care; Visit Provider Urology
DX: R39.89 Other symptoms and signs involving the genitourinary system (principal)
CPT/HCPCS: 76857

== ENCOUNTER 2023-09-04 15:13 | Outpatient (AMB) | payer OTHER, SELFPAY ==
--- NOTE | 2023-09-04 15:26 | A.OFFVIS_ITS ---
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 Language: Serbian Information Interpreted: non-clinical & clinical Accompanied by: Significant Other Allergies No Known Drug Allergies Allergy (Verified 09/04/23 16:02) Unknown Medication List - Last Reconciled 09/04/23 by Bird Sweet MD lansoprazole 30 mg PO ONCE 30 days lidocaine 5% (Lidoderm) 1 patch topical DAILY PRN loratadine 10 mg PO DAILY PRN sucralfate (Carafate) 1 g (10 mL) PO QIDACHS 8 weeks sucralfate 1 g (10 mL) PO BID 4 weeks tamsulosin (Flomax) 0.4 mg PO BEDTIME HPI Comments Details: 09/04/2023--Gurmeet is a 42-year-old male who has been followed for chronic prostatitis and lower urinary symptoms of frequency and dysuria. Discussed r esults of renal ultrasound and bladder ultrasound, 07/23/2023 and 08/05/2023. Kidneys WNL, bladder wall thickening, estimated prostate volume 38.6 mL. Plan continue flomax 0.4 mg daily. Behavioral modification. Avoid dietary irritants. Review of chart: 06/05/2023-Gurmeet returns today stating that urinary symptoms have returned he is having pain with ejaculation. He feels pressure in the lower abdomen. Certified parts interpreter present. Examination prostate tender to palpation testicles are within nontender. Bladder scan PVR 0 mL. I discussed lifestyle changes, behavioral modification. Avoid bladder dietary irritants. He was given a pamphlet. He admits to significant coffee use during the day. Old trial Flomax 0.4 mg daily. Discussed side effect of retrograde ejaculation. We will check renal and bladder ultrasound. 02/20/2023--Gurmeet is a 42 year old male turkish speaking, Certified parts interpreter present who is here with complaints of dark colored semen. is present. He states he saw a Urologist in the past about a year ago, he also had intermittent pain with ejaculation. and was treated with abx's on repeated episodes which resolved the symptoms. He denies dysuria currently and in further discussion he states that he has not had any recent episodes of blood in the semen or pain with ejaculation.I have discussed that his symptoms are suggestive of prostatitis. Currently he is asymptomatic. Plan - He will call if he has recurrent symptoms [facility] Medical History Postnasal drip Dysphagia Early satiety Esophagitis Varicose vein of scrotum Hiatal hernia Acid reflux Ulcer Surgical History History of esophagogastroduodenoscopy (EGD) Hx of colonoscopy Family History Unknown No problems noted. Social History Household Members: Spouse and Children Alcohol intake: never Patient Tobacco Use Status: Never used Tobacco Current occupation: [employer] Review of Systems Const All systems reviewed & are unremarkable except as noted in HPI and below Reports no additional complaints Eyes Reports no additional complaints ENT Reports no additional complaints Card Reports no additional complaints Resp Reports no additional complaints GI Reports no additional complaints Reports as per HPI Musc Reports no additional complaints Skin/Breast Reports system reviewed and no additional complaints, except as documented Neuro Reports no additional complaints Psych Reports no additional complaints Endo Reports no additional complaints Homero/Lymph Reports no additional complaints Aller/Immun Reports no additional complaints Office Procedures Post Void Residual Post Residual Void Post Void Residual (PVR): [id number] Void Residual by ultrasound Results AMB Urinalysis, Automated UA Leukoctes 0 Alden/uL Last Edit by Gil Mike on 09/04/23 16:06 UA Nitrite Negative Last Edit by Gil Mike on 09/04/23 16:06 UA Urobilinogen 0.2 mg/dL Last Edit by Gil Mike on 09/04/23 16:06 UA Protein 15 mg/dL Last Edit by Gil Mike on 09/04/23 16:06 UA pH 6.0 Last Edit by Gil Mike on 09/04/23 16:06 UA Blood 0 Sabino/uL Last Edit by Gil Mike on 09/04/23 16:06 UA Specific [place] 1.020 Last Edit by Gil Mike on 09/04/23 16:06 UA Ketone Negative Last Edit by Gil Mike on 09/04/23 16:06 UA Bilirubin 0 mg/dL Last Edit by Gil Mike on 09/04/23 16:06 UA Glucose 0 mg/dL Last Edit by Gil Mike on 09/04/23 16:06 Results Reviewed Results Reviewed: Laboratory Last Values Urine pH (Auto) 6.0 09/04/23 16:04 Specific [place] (Auto) 1.020 09/04/23 16:04 Urine Protein (Auto) 15 mg/dL 09/04/23 16:04 Glucose (UA)(Auto) 0 mg/dL 09/04/23 16:04 Urine Ketones (Auto) Negative 09/04/23 16:04 Urine Blood (Auto) 0 Sabino/uL 09/04/23 16:04 Urine Nitrite (Auto) Negative 09/04/23 16:04 Urine Bilirubin (Auto) 0 mg/dL 09/04/23 16:04 Urine Urobilinogen (Auto) 0.2 mg/dL 09/04/23 16:04 Leukocyte Esterase (Auto) 0 Alden/uL 09/04/23 16:04 Date of Service: 08/05/23 EXAMINATION: US PELVIS LIMITED (BLADDER) CLINICAL INFORMATION: Sensation of pressure in bladder area. COMPARISON: Renal ultrasound 07/23/2023. Ultrasound abdomen limited 01/09/2021. TECHNIQUE: Real-time imaging of the bladder. FINDINGS: BLADDER: Well distended. Mild diffuse irregularity and thickening of the bladder wall. Bilateral ureteral jets are demonstrated. Prevoid bladder volume is 156 mL. Postvoid bladder volume is 6.2 mL. ADDITIONAL FINDINGS: Enlarged prostate with volume 38.6 mL. IMPRESSION: 1. Mild diffuse irregularity and thickening of the bladder wall. 2. Enlarged prostate. Date of Service: 07/23/23 EXAMINATION: US RETROPERITONEAL LIMITED (RENAL ONLY) CLINICAL INFORMATION: Dysuria. COMPARISON: Abdominal ultrasound limited 01/09/2021. TECHNIQUE: Real-time imaging of the kidneys. FINDINGS: RIGHT KIDNEY: 10.6 x 5.4 x 5.1 cm (SAG x AP x TRV). The kidney is normal in size, contour, and echogenicity. Renal cortical thickness is normal. No calculi or focal parenchymal lesions. No hydronephrosis. LEFT KIDNEY: 11.5 x 6.4 x 4.6 cm (SAG x AP x TRV). The kidney is normal in size, contour, and echogenicity. Renal cortical thickness is normal. No calculi or focal parenchymal lesions. No hydronephrosis. IMPRESSION: Normal renal ultrasound. Assessment & Plan Assessment & Plan (1) Sensation of pressure in bladder area: Code(s): R39.89 - Other symptoms and signs involving the genitourinary system Category: Medical (2) Prostatitis: Code(s): N41.9 - Inflammatory disease of prostate, unspecified Category: Medical Plan Behavioral modification. Avoid dietary irritants. Cont flomax Follow-up in 6 months PSA prior Orders: Orders AMB Urinalysis Automated 09/04/23 Z13.9 - Encounter for screening, unspecified AMB Post Void Residual by ultrasound 09/04/23 R39.89 - Other symptoms and signs involving the genitourinary system PSA,Total (Free>4and<10) Today Z12.5 - Encounter for screening for malignant neoplasm of prostate Medications: Refilled tamsulosin (Flomax) 0.4 mg PO BEDTIME 30 caps 4RF Patient Instructions: The patient had an opportunity to ask questions regarding treatment plan. The patient expressed understanding and agreement with the above treatment plan. The patient is aware they should contact our office by phone for worsening of their current condition or the appearance of new symptoms. Compliance is encouraged with any medications and followup testing that is ordered. It is a privilege to be allowed the opportunity to participate in the urologic care of your patient. If you have any questions or concerns regarding treatment for the above conditions please do not hesitate to contact me. The office telephone contact is [phone]. This note is constructed in part using voice recognition software. While every effort has been made to ensure accuracy jet mechanic errors may have been included. Yours sincerely, Bird Sweet MD Coding Level of Care Code Est Pt Level 4 (17599) Diagnoses Sensation of pressure in bladder area R39.89 Prostatitis N41.9 CPT Codes Post Residual Void - PVR CPT Code: 52788-Hgce Void Residual by ultrasound ([id number])
== END 2023-09-04 16:11 | disposition home or self-care (01) ==
PROVIDERS: PCP Nurse Practitioner Primary Care; Visit Provider Urology
DX: R39.89 Other symptoms and signs involving the genitourinary system (principal); N41.9 Inflammatory disease of prostate, unspecified
CPT/HCPCS: 99214

== ENCOUNTER → 2023-09-04 15:13 | Outpatient (BNVA) | payer OTHER, SELFPAY | PROVIDERS: PCP Nurse Practitioner Primary Care; Visit Provider Urology | DX: N41.1 Chronic prostatitis (principal); R39.89 Other symptoms and signs involving the genitourinary system | CPT/HCPCS: 51798; 81003; 99212 ==

== ENCOUNTER 2023-09-23 10:15 | Emergency (ER) | payer OTHER, SELFPAY ==
--- NOTE | ~2023-09-23 | XR_ITS ---
EXAMINATION: XR HIP, LEFT CLINICAL INFORMATION: Left hip and SI joint pain COMPARISON: 10/01/2019 TECHNIQUE: Two views of the left hip and single view of the pelvis. FINDINGS: No fracture. Alignment is anatomic. Hip joint space is maintained. Soft tissues are unremarkable. XR/XR hip LT w PEL1V IMPRESSION: Normal left hip.
--- NOTE | ~2023-09-23 | XR_ITS ---
EXAMINATION: XR LUMBOSACRAL SPINE CLINICAL INFORMATION: Back pain and left leg pain COMPARISON: None available. TECHNIQUE: Three views of the lumbosacral spine. FINDINGS: The vertebral bodies and posterior elements are normal. The disc spaces are preserved and the vertebral alignment is normal. The paraspinal soft tissues are normal. XR/XR lumbar spine 2-3V IMPRESSION: Unremarkable examination.
[2023-09-23 10:27] VITALS: BP 126/68; PULSE 77; RESP 16; TEMP 36.6; O2SAT 98; BMI 25.3
[2023-09-23 11:26] LABS: MANUAL DIFF FLAG NO
[2023-09-23 11:28] LABS: Basophils Absolute Auto 0.1 X10*3/uL (0.0-0.2); Basophils Percent Auto 0.8 % (0-2); Eosinophils Absolute Auto 0.2 X10*3/uL (0.0-0.4); Eosinophils Percent Auto 2.6 % (0-4); Hemoglobin 14.4 g/dl (14.0-18.0); Imm Gran Abs Auto 0.01 X10*3/uL (0.00-0.03); Imm Gran Pct Auto 0.2 % (0.0-0.4); Lymphocytes Absolute Auto 1.3 X10*3/uL (1.2-4.9); Lymphocytes Percent Auto 19.6 % (20-40); Mean Corpuscular HGB Conc 34.3 g/dl (31.0-36.0); Mean Corpuscular Hemoglobin 28.1 pg (27.0-33.0); Mean Corpuscular Volume 81.9 fL (80.0-98.0); Mean Platelet Volume 10.6 fL (9.4-12.4); Monocytes Absolute Auto 0.7 X10*3/uL (0.1-1.2); Monocytes Percent Auto 10.2 % (2-11); Neutrophils Absolute Auto 4.3 x10*3/uL (2.0-8.3); Neutrophils Percent Auto 66.6 % (45-73); Platelet Count 182 X10*3/uL (160-400); Red Blood Count 5.13 X10*6/uL (4.60-5.80); Red Cell Distribution Width 13.5 % (11.0-16.0); White Blood Count 6.5 X10*3/uL (4.8-10.8)
[2023-09-23 11:48] LABS: Alanine Aminotransferase 16 U/L (0-40); Albumin Level 3.9 g/dL (3.5-5.0); Alkaline Phosphatase 56 U/L (39-117); Anion Gap 12 (12-20); Aspartate Amino Transferase 14 U/L (5-37); Bilirubin Total 0.3 mg/dL (0.0-1.0); Blood Urea Nitrogen 9 mg/dL (9-16); Calcium 8.9 mg/dL (8.4-10.2); Carbon Dioxide 25 mmol/L (22-29); Chloride 107 mmol/L (96-108); Creatinine Clr Calc Pharmacy 111.8; Estimated Glomerular Filt Rate > 60; Glucose Random 99 mg/dL (60-115); Potassium 3.6 mmol/L (3.3-5.1); Sodium 140 mmol/L (135-145); Total Protein 6.9 g/dL (6.5-8.0)
--- NOTE | 2023-09-23 12:35 | ED.LOWEXIN ---
HPI - Extremity Injury (Lower) General Chief Complaint: Abdominal Pain Stated Complaint: stomach and hip pain Time Seen by Provider: 09/23/23 12:29 Source: patient and family (, Monique) Mode of arrival: ambulatory Limitations: no limitations History of Present Illness ED Provider: Dr. Mor Shea HPI Narrative: 42-year-old male history of gastritis, erosive esophagitis, hiatal hernia,patulous GEJ who presents emergency department for evaluation of bilateral hip pain left greater than right with pain radiating down his left leg and epigastric pain. The patient states that he is having constant epigastric burning pain which she states has not been improved with his medications. The patient was taking Prevacid however he ran out of this medication 2 weeks prior. He he does have an appointment to see his director stars on Friday09/30/2023. The patient and his are concerned about his constant pain since they were told that if he does not get his esophagitis under control he is at increased risk for cancer. The patient denied nausea, vomiting, hemoptysis. He has not noticed any dark stools or bloody stools. He states he is gained weight. He has had no night sweats. Patient states that over the last month he has also had increasing left lower back pain which radiates down his left leg as well as lower mid back pain. 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 He does not recall any acute injury. He states he has a constant, sharp pain which is 6/10 at its worst. He has been taking Tylenol with only minimal improvement of the pain. He denies any weakness of his lower extremities. He denies loss of bowel or bladder control. Related Data Home Medications ?Medication ?Instructions ?Recorded ?Confirmed lidocaine 5 % topical patch 1 patch topical DAILY PRN pain 02/20/23 09/04/23 (Lidoderm) loratadine 10 mg tablet 10 mg PO DAILY PRN allergies 06/05/23 09/04/23 Previous Rx's ?Medication ?Instructions ?Recorded lansoprazole 30 mg capsule,delayed 30 mg PO ONCE 30 days #30 caps 11/01/22 release sucralfate 100 mg/mL oral 1 g (10 mL) PO QIDACHS 8 weeks 02/20/23 suspension (Carafate) #420 mL sucralfate 100 mg/mL oral 1 g (10 mL) PO BID 4 weeks #560 mL 06/04/23 suspension tamsulosin 0.4 mg capsule (Flomax) 0.4 mg PO BEDTIME #30 caps 09/04/23 aluminum hydrox-magnesium carb 254 10 ml PO QID PRN dyspepsia #355 mL 09/23/23 mg-237.5 mg/5 mL oral suspension (Gaviscon Extra Strength) cyclobenzaprine 10 mg tablet 10 mg PO TID PRN muscle pain or 09/23/23 spasm #20 tabs Allergies Allergy/AdvReac Type Severity Reaction Status Date / Time No Known Drug Allergies Allergy Unknown Verified 09/23/23 10:28 Review of Systems Review of Systems: Yes all other systems are reviewed and are negative [facility] Past Medical History [facility] Narrative: Social history: He is and he is here with his . He denies tobacco and alcohol use. Medical History Postnasal drip Dysphagia Early satiety Esophagitis Varicose vein of scrotum Hiatal hernia Acid reflux Ulcer Surgical History History of esophagogastroduodenoscopy (EGD) Hx of colonoscopy Family History Family History Unknown No problems noted. Social History Social History Household Members: Spouse and Children Alcohol intake: never Patient Tobacco Use Status: Never used Tobacco Smoked in Last 30 Days: No Use of substances other than those prescribed or required for medical reasons: No Advance Directives: No Do you have a plan to hurt others: No Plan Current occupation: [employer] Physical Exam Vital Signs: Vital Signs: Last Vital Signs Temp 97.9 F 09/23/23 15:16 Pulse 61 09/23/23 15:16 Resp 18 09/23/23 15:16 BP 110/80 09/23/23 15:16 Pulse Ox 98 09/23/23 15:16 O2 Del Method Room Air 09/23/23 15:16 BMI result Body Mass Index 25.3 Vital signs were normal Exam: General: Awake, alert in no distress Head: Normocephalic, atraumatic EENT: PERRL, Lids normal, sclera normal, conjunctiva normal, nose normal , ears normal, throat without erythema or exudates Neck: Supple, no adenopathy Lung: breath sounds symmetric, no wheezing, rales or rhonchi Chest: symmetric movement, nontender Heart: regular rate and rhythm, normal S1, S2 no murmurs or rubs Abdomen: soft, mild epigastric tenderness, nondistended, normal bowel sounds Back: Patient has no point vertebral tenderness but he does have significant tenderness palpation of his left SI joint, there has no erythema or swelling noted over this joint. Patient has negative straight leg raises bilaterally Extremities: no deformities, moves all extremities symmetrically Neuro: Awake, alert, oriented, normal speech, cranial nerves intact, moves all extremities symmetrically Psych: Pleasant, cooperative Medical Decision Making Medical Decision Making MDM Narrative: 42-year-old male history of gastritis, erosive esophagitis, hiatal hernia,patulous GEJ who presents emergency department for evaluation of bilateral hip pain left greater than right with pain radiating down his left leg and epigastric pain. Patient states that the epigastric pain has been there for years but is not improved despite taking his Prevacid. Patient also developed left lower and mid lower back pain x1 month with pain radiating down his left leg. Vital signs were unremarkable. Physical examination did reveal mild midepigastric tenderness. Back exam did reveal tenderness palpation of the left SI joint with negative straight leg raises and a normal neurologic exam. Differential diagnosis: ?Includes but is not limited to gastritis, esophagitis, lumbar sacral sprain, lumbosacral strain, sacroiliitis, radiculitis, electrolyte abnormalities, anemia Following evaluation was ordered: CBC, CMP, urinalysis, left hip with pelvis x-rays, x-ray lumbar sacral spine Course: My independent interpretation patient's laboratory evaluation as follows: CBC was normal. CMP was normal. Urinalysis was negative The patient's x-rays did not reveal any acute findings. Given his physical exam finding of tenderness over the SI joint I think that his symptoms are more consistent with sacroiliitis I did discuss this with him. Given his gastritis and erosive esophagitis the patient can not take NSAIDs. He was advised to continue taking Tylenol. He was prescribed Flexeril 10 mg 3 times a day as needed for pain/spasm. He was also given a prescription for extra-strength Gaviscon 10 cc before meals and at bedtime. Patient is going to see his director stars in one week. He was given printed and verbal instructions and discharged home. Admission/Observation Consideration of admission/observation: Escalation of care including admission/observation considered Lab Data MDM Lab Attestation statement: I reviewed the patient's lab results. 09/23/23 11:18 09/23/23 11:18 Labs: Lab Results 09/23/23 09/23/23 Range/Units 11:18 14:30 WBC 6.5 (4.8-10.8) X10*3/uL RBC 5.13 (4.60-5.80) X10*6/uL Hgb 14.4 (14.0-18.0) g/dl Hct 42.0 (42.0-52.0) % MCV 81.9 (80.0-98.0) fL MCH 28.1 (27.0-33.0) pg MCHC 34.3 (31.0-36.0) g/dl RDW 13.5 (11.0-16.0) % Plt Count 182 (160-400) X10*3/uL MPV 10.6 (9.4-12.4) fL Immature Gran % (Auto) 0.2 (0.0-0.4) % Neut % (Auto) 66.6 (45-73) % Lymph % (Auto) 19.6 L (20-40) % [place] % (Auto) 10.2 (2-11) % Eos % (Auto) 2.6 (0-4) % Baso % (Auto) 0.8 (0-2) % Lymph # (Auto) 1.3 (1.2-4.9) X10*3/uL [place] # (Auto) 0.7 (0.1-1.2) X10*3/uL Eos # (Auto) 0.2 (0.0-0.4) X10*3/uL Baso # (Auto) 0.1 (0.0-0.2) X10*3/uL Abs Immat Gran (auto) 0.01 (0.00-0.03) X10*3/uL Absolute Neuts (auto) 4.3 (2.0-8.3) x10*3/uL Absolute Nucleated RBC 0.000 (0.0-0.012) X10*3/uL Nucleated RBC % (auto) 0.0 (0.0-0.2) /100WBC Sodium 140 (135-145) mmol/L Potassium 3.6 (3.3-5.1) mmol/L Chloride 107 (96-108) mmol/L Carbon Dioxide 25 (22-29) mmol/L Anion Gap 12 (12-20) BUN 9 (9-16) mg/dL Creatinine 0.87 (0.5-1.4) mg/dL Estim Creat Clear Calc 111.8 Estimated GFR > 60 Random Glucose 99 (60-115) mg/dL Calcium 8.9 (8.4-10.2) mg/dL Total Bilirubin 0.3 (0.0-1.0) mg/dL AST 14 (5-37) U/L ALT 16 (0-40) U/L Alkaline Phosphatase 56 (39-117) U/L Total Protein 6.9 (6.5-8.0) g/dL Albumin 3.9 (3.5-5.0) g/dL Urine Color Yellow Urine Appearance Clear Urine pH 7.5 (5.0-9.0) Ur Specific [place] 1.020 (1.005-1.025) Urine Protein Negative (Neg-Trace) mg/dL Urine Glucose (UA) Negative (Negative) mg/dL Urine Ketones Negative (Negative) mg/dL Urine Blood Negative (Negative) Urine Nitrite Negative (Negative) Ur Leukocyte Esterase Negative (Negative) Radiology Impression Discussion of test interpretation with radiology: I have reviewed the radiologist's reading. Radiologist Impression: XR lumbar spine 2-3V IMPRESSION: Unremarkable examination. Dictated By: Berenice De La Torre MD XR hip LT w PEL1V IMPRESSION: Normal left hip. Dictated By: Berenice De La Torre MD Independent Historian Clinical information obtained from an independent historian. History obtained from or confirmed by: Spouse and Other External Record Review External record reviewed: Office record (GI notes) Prescription Management I considered prescription management with: Other (Antacids, muscle relaxant) Chronic Conditions Patient?s care impacted by: Other (Erosive esophagitis) Discharge Plan Discharge Clinical Impression: Esophagitis, Sacroiliitis, Low back pain radiating down leg Patient Disposition: Home, Self-Care Instructions: Sacroiliitis (ED), Esophagitis (ED) Additional Instructions: Your blood work was normal. The x-rays of your lower back and left hip were normal. Your symptoms are consistent with inflammation of the sacroiliac joint open (the joint between your pelvic bones of your back). Apply ice for 15 minutes 4 to 6 times a day to your lower back, this should help reduce the inflammation and help improve the pain Take extra-strength Gaviscon 10 mL (2 tsp) 4 times a day as needed for abdominal pain. Take Flexeril (cyclobenzaprine) 10 mg pills, 1 pill every 6-8 hours as needed for pain or spasm. ?This medication will make you sleepy. ?Do not drive or work while taking this medication. Follow-up with your director stars as scheduled. Please return to the emergency department if your symptoms get worse or if you develop any symptoms that are concerning to you. Please see the work note Prescriptions: New Gaviscon Extra Strength 254-237.5 mg/5 mL suspension 10 ml PO QID PRN (Reason: dyspepsia) Qty: 355 0RF cyclobenzaprine 10 mg tablet 10 mg PO TID PRN (Reason: muscle pain or spasm) Qty: 20 0RF No Action lansoprazole 30 mg capsule,delayed release(DR/EC) 30 mg PO ONCE 30 Days Qty: 30 6RF lidocaine [Lidoderm] 5 % adhesive patch,medicated 1 patch topical DAILY PRN (Reason: pain) Rx Instructions: leave on most painful area for up to 12 hrs sucralfate 100 mg/mL suspension 1 g PO BID 28 Days Qty: 560 0RF loratadine 10 mg tablet 10 mg PO DAILY PRN (Reason: allergies) tamsulosin [Flomax] 0.4 mg capsule 0.4 mg PO BEDTIME Qty: 30 4RF sucralfate [Carafate] 100 mg/mL suspension 1 g PO QIDACHS 56 Days Qty: 420 0RF Stand Alone Forms: Work/School Release Interventions: ED Discharge Assessment Last Done: 09/23/23 15:16 Discharge Date/Time: 09/23/23 15:17 Print Language: Latvian
[2023-09-23 14:25] VITALS: BP 109/79; PULSE 61; RESP 16; TEMP 36.5; O2SAT 97
[2023-09-23 14:43] LABS: Appearance Urine Clear; Color Urine Yellow; Glucose Urine UA Negative (Negative); Leukocyte Esterase Urine Negative (Negative); Nitrite Urine Negative (Negative); PH 7.5 (5.0-9.0); Urine Blood Negative (Negative); Urine Ketones Negative (Negative); Urine Protein Negative (Neg-Trace)
[2023-09-23 15:16] VITALS: BP 110/80; PULSE 61; RESP 18; TEMP 36.6; O2SAT 98
== END 2023-09-23 15:17 | disposition home or self-care (01) ==
PROVIDERS: Emergency Provider Emergency Medicine Emergency Medical Services; PCP Nurse Practitioner Primary Care
DX: K20.90 Esophagitis, unspecified without bleeding (principal); M46.1 Sacroiliitis, not elsewhere classified; M25.552 Pain in left hip; M54.50 Low back pain, unspecified; M79.605 Pain in left leg; M79.604 Pain in right leg; M25.551 Pain in right hip
CPT/HCPCS: 36415; 72100; 73502; 80053; 81003; 85025; 99283; 99284

== ENCOUNTER 2023-09-24 14:41 | Outpatient (AMB) | payer OTHER, SELFPAY ==
--- NOTE | 2023-09-24 14:44 | MHC.OFFVIS ---
Vital Signs 09/24/23 14:54 Height 5 ft 10 in Weight 176 lb 12.972 oz BMI 25.4 BP 110/70 Blood Pressure Location Lt brachial Position Sitting Pulse 80 Pulse Source Pulse Oximeter Pulse Oximetry (%) 97 Oxygen Delivery Method Room Air Intake Visit Reasons: Abdominal pain Intake Note: Gurmeet presents in office today for a requested office visit to discuss new sx. CC; Pt reports new onset of intense or severe abdominal pain, nausea and vomiting, as well as a sensation that feels as if something burst . Pt is pointing to his LUQ repeatedly and feels that there is a large amount of gas and bloating in that area. Pt states that the pain is located only in LUQ. Pt denies presence of any hematemesis. Pt reports that he did start taking lansoprazole on a PRN basis which did help a little. Medical Center Director Required: Yes Medical Center Director Name: [id number] Information Interpreted: non-clinical & clinical Accompanied by: Significant Other Allergies No Known Drug Allergies Allergy (Verified 09/24/23 14:47) Unknown HPI HPI Abdominal pain: Details: LAST VISIT: With Geno TYSON Plan Continue lansoprazole Carafate b.i.d. x4 Follow-up for surgical consult as scheduled Reflux precautions review Encouraged to call with questions or concerns Eat slowly chew well Medications: New sucralfate 1 g (10 mL) PO BID 4 weeks 560 mL 0RF EMERGENCY ROOM VISIT 09/23/2023 HPI Narrative: 42-year-old male history of gastritis, erosive esophagitis, hiatal hernia,patulous GEJ who presents emergency department for evaluation of bilateral hip pain left greater than right with pain radiating down his left leg and epigastric pain. The patient states that he is having constant epigastric burning pain which she states has not been improved with his medications. The patient was taking Prevacid however he ran out of this medication 2 weeks prior. He he does have an appointment to see his comb machine operator on Friday09/30/2023. The patient and his are concerned about his constant pain since they were told that if he does not get his esophagitis under control he is at increased risk for cancer. The patient denied nausea, vomiting, hemoptysis. He has not noticed any dark stools or bloody stools. He states he is gained weight. He has had no night sweats. Patient states that over the last month he has also had increasing left lower back pain which radiates down his left leg as well as lower mid back pain. 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 He does not recall any acute injury. He states he has a constant, sharp pain which is 6/10 at its worst. He has been taking Tylenol with only minimal improvement of the pain. He denies any weakness of his lower extremities. He denies loss of bowel or bladder control. TODAY'S VISIT Patient is here today for requested visit. Patient was unable to weight to be seen till December as his provider is on medical leave right now. His appointment was changed from the and he requested to be seen due to his continued symptoms. As mentioned above patient was seen in the ER. See as documented. Patient states that his symptoms has not changed. In addition he reports to have constipation. Patient reports that he feels like he is not emptying his bowels specially today reports to be feeling gassy. States that he was taking lansoprazole, however he was not taking lansoprazole daily as prescribed by his GI provider. Patient had upper endoscopy back in May and was found to have a gastritis and erosive esophagitis. [facility] Medical History Postnasal drip Dysphagia Early satiety Esophagitis Varicose vein of scrotum Hiatal hernia Acid reflux Ulcer Surgical History History of esophagogastroduodenoscopy (EGD) Hx of colonoscopy Family History Unknown No problems noted. Social History Household Members: Spouse and Children Alcohol intake: never Patient Tobacco Use Status: Never used Tobacco Current occupation: [employer] Review of Systems Const Denies weight gain and Denies weight loss ENT Reports no additional complaints, Denies dysphagia and Denies odynophagia Card Reports no additional complaints Resp Reports no additional complaints GI Reports abdominal pain (Epigastric burning), Denies belching, Denies melena, Reports bloating, Denies change in bowel habits, Denies dysphagia, Denies excessive flatus, Denies dyspepsia, Reports heartburn, Denies diarrhea, Denies loose stools, Denies nausea, Denies odynophagia and Denies vomiting Reports no additional complaints Musc Reports no additional complaints Neuro Reports no additional complaints Psych Reports no additional complaints Endo Reports no additional complaints Physical Exam Vital Signs: Last Vital Signs Pulse 80 09/24/23 14:54 BP 110/70 09/24/23 14:54 Pulse Ox 97 09/24/23 14:54 Oxygen Delivery Method Room Air 09/24/23 14:54 BMI result Body Mass Index 25.4 Const General: healthy appearing, no acute distress and well developed Nutritional Appearance: well nourished Orientation/consciousness: patient oriented x3 Resp Effort & Inspection: normal respiratory effort, able to speak in complete sentences, no tracheal deviation and symmetric chest movement Auscultation: clear to auscultation bilaterally Cardio Rate: regular rate GI Inspection: Yes normal to inspection and No distended Palpation (GI): Soft to palpation, not firm, nontender and No hepatosplenomegaly present Auscultation: normal bowel sounds General: Yes no CVA tenderness Back/Spine/Pelvis Back: no CVA tenderness Skin General skin exam: elasticity normal, turgor normal and dry skin Neuro General: patient oriented x3 Psych Appearance: grossly normal Mental Status: mental status grossly normal Assessment & Plan Assessment & Plan (1) Erosive esophagitis: Code(s): K22.10 - Ulcer of esophagus without bleeding (2) Gastritis: Code(s): K29.70 - Gastritis, unspecified, without bleeding Qualifiers: Gastritis type: unspecified gastritis Chronicity: chronic Gastritis bleeding: without bleeding Qualified Code(s): K29.50 - Unspecified chronic gastritis without bleeding (3) Abdominal pain, LUQ (left upper quadrant): Code(s): R10.12 - Left upper quadrant pain (4) Constipation: Code(s): K59.00 - Constipation, unspecified Qualifiers: Constipation type: slow transit constipation Qualified Code(s): K59.01 - Slow transit constipation Plan Patient will continue taking lansoprazole. Avoid dietary triggers and late night snacking. Staying upright for minimum 3 hours after meals discussed with patient. Patient will take famotidine at bedtime. Patient will take magnesium citrate half a bottle when he gets home and 2nd have 1-2 hours later to help him empty his bowels better. Patient will avoid dietary triggers low FODMAP diet discussed with patient. List of food recommended as well as list of food to avoid given to patient. Will check for pancreatic insufficiency. CT scan of abdomen ordered. BUN and creatinine [address] scan. Patient is agreeable to this plan and verbalizes understanding of instructions. He was given the opportunity to ask questions and all questions answered. Patient will follow-up with his GI provider for next visit. Thank you for allowing me to participate in his care Orders: Orders Blood Urea Nitrogen 09/24/23 R10.11 - Right upper quadrant pain Pancreatic Elastase-1 09/24/23 R10.9 - Unspecified abdominal pain CT abdomen pelvis w IV con 09/24/23 R10.9 - Unspecified abdominal pain, R10.12 - Left upper quadrant pain Creatinine 09/24/23 R10.11 - Right upper quadrant pain Medications: New magnesium citrate Lorena la botella entera la noche anterior a bernabe procedimiento 296 mL PO ONCE 296 mL 0RF Z12.11 - Encounter for screening for malignant neoplasm of colon famotidine (Pepcid) 20 mg PO BEDTIME 30 tabs 3RF K21.9 - Gastro-esophageal reflux disease without esophagitis Changed From lansoprazole 30 mg PO ONCE 30 days 30 caps 6RF To lansoprazole 30 mg PO DAILY 30 caps 6RF 30 days Coding Level of Care Code Est Pt Level 4 (53419) Diagnoses Erosive esophagitis K22.10 Chronic gastritis without bleeding, unspecified gastritis type K29.50 Gastritis type: unspecified gastritis Chronicity: chronic Gastritis bleeding: without bleeding Abdominal pain, LUQ (left upper quadrant) R10.12 Slow transit constipation K59.01 Constipation type: slow transit constipation Time Spent (min) 40 Comment 25 minutes spent with patient and additional 15 minutes spent reviewing his records
[2023-09-24 14:54] VITALS: BP 110/70; PULSE 80; O2SAT 97; BMI 25.4
== END 2023-09-24 15:51 | disposition home or self-care (01) ==
PROVIDERS: PCP Nurse Practitioner Primary Care; Visit Provider Nurse Practitioner Family
DX: K22.10 Ulcer of esophagus without bleeding (principal); K29.50 Unspecified chronic gastritis without bleeding; R10.12 Left upper quadrant pain; K59.01 Slow transit constipation
CPT/HCPCS: 99214

== ENCOUNTER → 2023-09-24 14:41 | Outpatient (BNVA) | payer OTHER, SELFPAY | PROVIDERS: PCP Nurse Practitioner Primary Care; Visit Provider Nurse Practitioner Family | DX: K22.10 Ulcer of esophagus without bleeding (principal); K29.50 Unspecified chronic gastritis without bleeding; R10.12 Left upper quadrant pain; K59.01 Slow transit constipation; Z79.899 Other long term (current) drug therapy | CPT/HCPCS: 99212 ==

== ENCOUNTER 2023-10-22 21:07 | Emergency (ER) | payer OTHER, SELFPAY ==
--- NOTE | ~2023-10-22 | XR_ITS ---
EXAMINATION: XR CHEST CLINICAL INFORMATION: Chest pain and cough. COMPARISON: Chest x-ray 02/26/2023 TECHNIQUE: Frontal view of the chest was obtained. FINDINGS: No significant abnormality is noted involving the heart, lungs, mediastinum, bony thorax or soft tissues. Small calcified granuloma right lung apex is stable XR/XR chest 1V IMPRESSION: Unremarkable chest examination.
[2023-10-22 21:13] VITALS: BP 120/81; PULSE 78; RESP 18; TEMP 36.8; O2SAT 96; BMI 25.2
--- NOTE | 2023-10-22 21:16 | ECG_ITS ---
Test Reason : CHEST PAIN Blood Pressure : / mmHG Vent. Rate : 070 BPM Atrial Rate : 070 BPM P-R Int : 130 ms QRS Dur : 082 ms QT Int : 394 ms P-R-T Axes : 020 025 032 degrees QTc Int : 425 ms Normal sinus rhythm Normal ECG No previous ECGs available Referred By: Generic ED Physician Electronically Signed By:JOSE DAILY
[2023-10-22 21:37] LABS: MANUAL DIFF FLAG NO
[2023-10-22 21:39] LABS: Basophils Absolute Auto 0.1 X10*3/uL (0.0-0.2); Basophils Percent Auto 0.9 % (0-2); Eosinophils Absolute Auto 0.3 X10*3/uL (0.0-0.4); Eosinophils Percent Auto 3.9 % (0-4); Hematocrit 41.4 % (42.0-52.0); Hemoglobin 13.9 g/dl (14.0-18.0); Imm Gran Abs Auto 0.02 X10*3/uL (0.00-0.03); Imm Gran Pct Auto 0.2 % (0.0-0.4); Lymphocytes Absolute Auto 1.7 X10*3/uL (1.2-4.9); Lymphocytes Percent Auto 21.2 % (20-40); Mean Corpuscular HGB Conc 33.6 g/dl (31.0-36.0); Mean Corpuscular Hemoglobin 27.6 pg (27.0-33.0); Mean Corpuscular Volume 82.3 fL (80.0-98.0); Mean Platelet Volume 10.3 fL (9.4-12.4); Monocytes Absolute Auto 0.7 X10*3/uL (0.1-1.2); Monocytes Percent Auto 8.8 % (2-11); Neutrophils Absolute Auto 5.3 x10*3/uL (2.0-8.3); Platelet Count 192 X10*3/uL (160-400); Red Blood Count 5.03 X10*6/uL (4.60-5.80); Red Cell Distribution Width 13.6 % (11.0-16.0); White Blood Count 8.1 X10*3/uL (4.8-10.8)
[2023-10-22 21:53] LABS: Anion Gap 10 (12-20); Blood Urea Nitrogen 10 mg/dL (9-16); Calcium 8.4 mg/dL (8.4-10.2); Carbon Dioxide 28 mmol/L (22-29); Chloride 106 mmol/L (96-108); Creatinine Clr Calc Pharmacy 116.7; Estimated Glomerular Filt Rate > 60; Glucose Random 101 mg/dL (60-115); Potassium 3.7 mmol/L (3.3-5.1); Sodium 140 mmol/L (135-145)
[2023-10-22 22:14] LABS: Troponin-I High Sensitivity < 2.7 ng/L (<3.5-35.0)
[2023-10-22 23:37] VITALS: BP 124/77; PULSE 79; RESP 17; TEMP 36.5; O2SAT 97
[2023-10-22 23:51] VITALS: BP 124/77; PULSE 79; RESP 17; TEMP 36.5
--- NOTE | 2023-10-23 00:33 | ED_ITS ---
HPI - Chest Pain General Chief Complaint: Chest Pain Stated Complaint: Chest pain Time Seen by Provider: 10/22/23 23:05 Source: patient Mode of arrival: ambulatory Limitations: no limitations History of Present Illness ED Provider: puneet SO narrative: Patient no significant cardiac history nonsmoker nonalcoholic no family history comes here for 3 days of sharp short lasting pain on left side of the chest no relation with exertion or palpation no shortness a breath no diaphoresis no nausea no vomiting no syncope no palpitation Related Data Home Medications ?Medication ?Instructions ?Recorded ?Confirmed lidocaine 5 % topical patch 1 patch topical DAILY PRN pain 02/20/23 09/04/23 (Lidoderm) loratadine 10 mg tablet 10 mg PO DAILY PRN allergies 06/05/23 09/04/23 Previous Rx's ?Medication ?Instructions ?Recorded sucralfate 100 mg/mL oral 1 g (10 mL) PO BID 4 weeks #560 mL 06/04/23 suspension tamsulosin 0.4 mg capsule (Flomax) 0.4 mg PO BEDTIME #30 caps 09/04/23 aluminum hydrox-magnesium carb 254 10 ml PO QID PRN dyspepsia #355 mL 09/23/23 mg-237.5 mg/5 mL oral suspension (Gaviscon Extra Strength) cyclobenzaprine 10 mg tablet 10 mg PO TID PRN muscle pain or 09/23/23 spasm #20 tabs famotidine 20 mg tablet (Pepcid) 20 mg PO BEDTIME #30 tabs 09/24/23 lansoprazole 30 mg capsule,delayed 30 mg PO DAILY 30 days #30 caps 09/24/23 release magnesium citrate 296 ml PO ONCE #296 mL 09/24/23 Allergies Allergy/AdvReac Type Severity Reaction Status Date / Time No Known Drug Allergies Allergy Unknown Verified 10/22/23 21:15 Review of Systems 2 Review of Systems: Yes all other systems are reviewed and are negative PMFSH Past Medical History Medical History Postnasal drip Dysphagia Early satiety Esophagitis Varicose vein of scrotum Hiatal hernia Acid reflux Ulcer Surgical History History of esophagogastroduodenoscopy (EGD) Hx of colonoscopy Family History Family History Unknown No problems noted. Social History Social History Household Members: Spouse and Children Alcohol intake: never Patient Tobacco Use Status: Never used Tobacco Advance Directives: No Advance Directives Information Provided: Yes Current occupation: [employer] Physical Exam 2 Vital Signs: Vital Signs: Last Vital Signs Temp 97.7 F 10/22/23 23:51 Pulse 79 10/22/23 23:51 Resp 17 10/22/23 23:51 BP 124/77 10/22/23 23:51 Pulse Ox 97 10/22/23 23:37 O2 Del Method Room Air 10/22/23 23:51 BMI result Body Mass Index 25.2 Appearance: Alert. Oriented X3. No acute distress. Eyes: PERRLA, No Nystagmus ENT: Pharynx normal. Oral Mucosa moist Neck: Normal inspection. Neck supple. CVS: Normal heart rate and rhythm. Pulses normal. Respiratory: No respiratory distress. Equal air entry bilateral, no wheezing/rales/rhonchi Abdomen: Soft and nontender. Bowel sounds are present, no mass palpable, no CVA tenderness Skin: Skin warm and dry. Normal skin color. Normal skin turgor. Extremities: No lower extremity edema. No calf tenderness Neuro: Oriented X 3. No motor deficit. No sensory deficit.No cerebellar signs , cranial nerves II-XII intact Medical Decision Making Differential Diagnosis Differential Diagnoses: The differential diagnosis associated with the presentation includes Musculoskeletal chest pain/pericarditis/pleuritis/chest wall pain chest/ACS Lab Data 10/22/23 21:31 10/22/23 21:31 Labs: Lab Results 10/22/23 Range/Units 21:31 WBC 8.1 (4.8-10.8) X10*3/uL RBC 5.03 (4.60-5.80) X10*6/uL Hgb 13.9 L (14.0-18.0) g/dl Hct 41.4 L (42.0-52.0) % MCV 82.3 (80.0-98.0) fL MCH 27.6 (27.0-33.0) pg MCHC 33.6 (31.0-36.0) g/dl RDW 13.6 (11.0-16.0) % Plt Count 192 (160-400) X10*3/uL MPV 10.3 (9.4-12.4) fL Immature Gran % (Auto) 0.2 (0.0-0.4) % Neut % (Auto) 65.0 (45-73) % Lymph % (Auto) 21.2 (20-40) % [place] % (Auto) 8.8 (2-11) % Eos % (Auto) 3.9 (0-4) % Baso % (Auto) 0.9 (0-2) % Lymph # (Auto) 1.7 (1.2-4.9) X10*3/uL [place] # (Auto) 0.7 (0.1-1.2) X10*3/uL Eos # (Auto) 0.3 (0.0-0.4) X10*3/uL Baso # (Auto) 0.1 (0.0-0.2) X10*3/uL Abs Immat Gran (auto) 0.02 (0.00-0.03) X10*3/uL Absolute Neuts (auto) 5.3 (2.0-8.3) x10*3/uL Absolute Nucleated RBC 0.000 (0.0-0.012) X10*3/uL Nucleated RBC % (auto) 0.0 (0.0-0.2) /100WBC Sodium 140 (135-145) mmol/L Potassium 3.7 (3.3-5.1) mmol/L Chloride 106 (96-108) mmol/L Carbon Dioxide 28 (22-29) mmol/L Anion Gap 10 L (12-20) BUN 10 (9-16) mg/dL Creatinine 0.86 (0.5-1.4) mg/dL Estim Creat Clear Calc 116.7 Estimated GFR > 60 Random Glucose 101 (60-115) mg/dL Calcium 8.4 (8.4-10.2) mg/dL Troponin I High Sens < 2.7 (<3.5-35.0) ng/L Discharge Plan Discharge Clinical Impression: Chest pain Patient Disposition: Home, Self-Care Instructions: Chest Pain (ED) Additional Instructions: Your chest pain unlikely from the heart Follow with your PCP Your blood report and cardiogram are normal Prescriptions: No Action Gaviscon Extra Strength 254-237.5 mg/5 mL suspension 10 ml PO QID PRN (Reason: dyspepsia) Qty: 355 0RF cyclobenzaprine 10 mg tablet 10 mg PO TID PRN (Reason: muscle pain or spasm) Qty: 20 0RF lidocaine [Lidoderm] 5 % adhesive patch,medicated 1 patch topical DAILY PRN (Reason: pain) Rx Instructions: leave on most painful area for up to 12 hrs sucralfate 100 mg/mL suspension 1 g PO BID 28 Days Qty: 560 0RF loratadine 10 mg tablet 10 mg PO DAILY PRN (Reason: allergies) tamsulosin [Flomax] 0.4 mg capsule 0.4 mg PO BEDTIME Qty: 30 4RF lansoprazole 30 mg capsule,delayed release(DR/EC) 30 mg PO DAILY 30 Days Qty: 30 6RF famotidine [Pepcid] 20 mg tablet 20 mg PO BEDTIME Qty: 30 3RF magnesium citrate Solution 296 ml PO ONCE Qty: 296 0RF Rx Instructions: Lorena la botella entera la noche anterior a bernabe procedimiento Stand Alone Forms: Work/School Release Interventions: ED Discharge Assessment Last Done: 10/22/23 23:51 Discharge Date/Time: 10/22/23 23:53 Print Language: English
== END 2023-10-22 23:53 | disposition home or self-care (01) ==
PROVIDERS: Emergency Provider Internal Medicine; PCP Nurse Practitioner Primary Care
DX: R07.89 Other chest pain (principal); Z79.899 Other long term (current) drug therapy
CPT/HCPCS: 36415; 71045; 80048; 84484; 85025; 93005; 99283

== ENCOUNTER 2024-01-26 12:27 | Outpatient (AMB) | payer OTHER, SELFPAY ==
[2024-01-26 12:31] VITALS: BP 108/66; PULSE 84; O2SAT 97; BMI 25.4
--- NOTE | 2024-01-26 12:31 | MHC.OFFVIS ---
Vital Signs 01/26/24 12:31 Height 5 ft 10 in Weight 177 lb 4.026 oz BMI 25.4 BP 108/66 Blood Pressure Location Lt brachial Position Sitting Pulse 84 Pulse Source Pulse Oximeter Pulse Oximetry (%) 97 Oxygen Delivery Method Room Air Intake Visit Reasons: Abdominal pain Intake Note: Relevant Flags or Indicators ? Requires Field Applications Specialist? Y Gurmeet presents in office today for a scheduled ~4 mos FUV. CC; Seen at [facility] in October 2023 for non cardiac chest pain. Pt is on PPI, pt is no longer taking famotidine. ? Relevant GI Sx as reported per pt? Nausea ? Vomiting (w/ bleeding) ? Reflux ? Dysphagia / Painful Swallowing ? Fecal abnormalities o?? Discolored - Melena w/ associated rectal pain. ? Abdominal Pain - L upper and lower quadrants. ? Hx of any recent surgeries? None after having the EGD w/ dilation. Field Applications Specialist Required: Yes Field Applications Specialist Services: Field Applications Specialist Present Field Applications Specialist Name: [id number] - Ann Information Interpreted: non-clinical & clinical Accompanied by: Significant Other Allergies No Known Drug Allergies Allergy (Verified 01/26/24 12:32) Unknown HPI HPI Abdominal pain: Details: LAST VISIT: Erosive esophagitis Gastritis Abdominal pain, LUQ (left upper quadrant) Constipation Plan Patient will continue taking lansoprazole. Avoid dietary triggers and late night snacking. Staying upright for minimum 3 hours after meals discussed with patient. Patient will take famotidine at bedtime. Patient will take magnesium citrate half a bottle when he gets home and 2nd have 1-2 hours later to help him empty his bowels better. Patient will avoid dietary triggers low FODMAP diet discussed with patient. List of food recommended as well as list of food to avoid given to patient. Will check for pancreatic insufficiency. CT scan of abdomen ordered. BUN and creatinine [address] scan. Patient is agreeable to this plan and verbalizes understanding of instructions. He was given the opportunity to ask questions and all questions answered. Patient will follow-up with his GI provider for next visit. ? Thank you for allowing me to participate in his care Orders Orders Blood Urea Nitrogen 09/24/23 R10.11 Pancreatic Elastase-1 09/24/[address] abdomen pelvis w IV con 09/24/23 R10.9, R10.12 Creatinine 09/24/23 R10.11 Medications New magnesium citrate Lorena la botella entera la noche anterior a bernabe procedimiento 296 mL PO ONCE 296 mL 0RF Z12.11 famotidine (Pepcid) 20 mg PO BEDTIME 30 tabs 3RF K21.9 Changed Changed From lansoprazole 30 mg PO ONCE 30 days 30 caps 6RF Changed To lansoprazole 30 mg PO DAILY 30 caps 6RF 30 days TODAY'S VISIT Patient is here today for follow-up. Patient reports that he continues to have acid reflux and epigastric pain postprandially. Many times patient reports that the pain is so severe that he vomits. Patient describes the pain as sharp, feels bloated when he has the pain, pain in the left upper quadrant. Patient also reports that he has blood after bowel movement. Patient reports that he has frequent bowel movements 3 to 4 times a day, feels like he empties well. Denies any constipation. Patient reports that he never had colonoscopy in the past. Patient reports that he feels like lansoprazole has not been helpful. Patient has been on this medication for a long time. He is also on sucralfate twice a day does not feel like it is a very effective. Back in the beginning of 2023 and May patient had upper endoscopy, diaphragmatic hernia was notice and patient was referred to bariatric surgery. Patient up did not to go at this point for surgery. [facility] Medical History Postnasal drip Dysphagia Early satiety Esophagitis Varicose vein of scrotum Hiatal hernia Acid reflux Ulcer Surgical History History of esophagogastroduodenoscopy (EGD) Hx of colonoscopy Family History Unknown No problems noted. Social History Household Members: Spouse and Children Alcohol intake: never Patient Tobacco Use Status: Never used Tobacco Current occupation: [employer] Systems Const Denies weight gain and Denies weight loss ENT Reports no additional complaints, Denies dysphagia and Denies odynophagia Card Reports no additional complaints Resp Reports no additional complaints GI Denies abdominal pain (LUQ), Denies belching, Denies melena, Reports bloating, Denies change in bowel habits, Denies dysphagia, Denies excessive flatus, Reports dyspepsia, Reports heartburn, Denies diarrhea, Denies loose stools, Reports nausea, Denies odynophagia and Denies vomiting Reports no additional complaints Musc Reports no additional complaints Neuro Reports no additional complaints Psych Reports no additional complaints Endo Reports no additional complaints Physical Exam Vital Signs: Last Vital Signs Pulse 84 01/26/24 12:31 BP 108/66 01/26/24 12:31 Pulse Ox 97 01/26/24 12:31 Oxygen Delivery Method Room Air 01/26/24 12:31 BMI result Body Mass Index 25.4 Const General: healthy appearing, no acute distress and well developed Nutritional Appearance: well nourished Orientation/consciousness: patient oriented x3 Resp Effort & Inspection: normal respiratory effort, able to speak in complete sentences, no tracheal deviation and symmetric chest movement Auscultation: clear to auscultation bilaterally Cardio Rate: regular rate GI Inspection: Yes normal to inspection and No distended Palpation (GI): Soft to palpation, not firm, nontender and No hepatosplenomegaly present Auscultation: normal bowel sounds General: Yes no CVA tenderness Back/Spine/Pelvis Back: no CVA tenderness Skin General skin exam: elasticity normal, turgor normal and dry skin Neuro General: patient oriented x3 Psych Appearance: grossly normal Mental Status: mental status grossly normal Assessment & Plan Assessment & Plan (1) Erosive esophagitis: Code(s): K22.10 - Ulcer of esophagus without bleeding (2) Gastritis: Code(s): K29.70 - Gastritis, unspecified, without bleeding Qualifiers: Gastritis type: unspecified gastritis Chronicity: chronic Gastritis bleeding: without bleeding Qualified Code(s): K29.50 - Unspecified chronic gastritis without bleeding (3) Abdominal pain, LUQ (left upper quadrant): Code(s): R10.12 - Left upper quadrant pain (4) Constipation: Code(s): K59.00 - Constipation, unspecified Qualifiers: Constipation type: slow transit constipation Qualified Code(s): K59.01 - Slow transit constipation (5) Nausea: Code(s): R11.0 - Nausea (6) Postprandial abdominal bloating: Code(s): R14.0 - Abdominal distension (gaseous) Plan Patient reports upper abdominal pain in left upper quadrant as well as in the epigastric area. Will send patient for ultrasound. Reports postprandial abdominal bloating. Liver panel and CBC ordered as well as lipase. Patient will start taking fiber. Fiber sent to pharmacy, however patient was encouraged to try to see if he can get 1 with probiotic senna [id number]. Sucralfate decrease to bedtime only and we will change PPI therapy to Nexium. Avoid dietary triggers and late night snacking. Staying upright for minimum 3 hours after meals discussed with patient. Patient will return in 3 months to discuss lab results and going for colonoscopy. Patient was encouraged to get blood work done as well as stool study. He is agreeable to this plan and verbalizes understanding of instructions. He was given the opportunity to ask questions and all questions answered. Thank you for allowing me to participate in his care Orders: Orders US abdomen complete 01/26/24 R10.9 - Unspecified abdominal pain Liver Panel 01/26/24 R74.01 - Elevation of levels of liver transaminase levels Complete Blood Count no Diff 01/26/24 K21.9 - Gastro-esophageal reflux disease without esophagitis Lipase 01/26/24 R10.9 - Unspecified abdominal pain Medications: New methylcellulose (laxative) (Citrucel) take it with full glass of water 500 mg PO DAILY 90 tabs 2RF K59.00 - Constipation, unspecified sucralfate 1 g PO BEDTIME 90 tabs 1RF K21.9 - Gastro-esophageal reflux disease without esophagitis, K29.81 - Duodenitis with bleeding esomeprazole magnesium (Nexium) 40 mg PO DAILY 30 caps 5RF K21.9 - Gastro-esophageal reflux disease without esophagitis Discontinued sucralfate Discontinued Reason: Doctor's Order 1 g (10 mL) PO BID 4 weeks 560 mL 0RF lansoprazole Discontinued Reason: Doctor's Order 30 mg PO DAILY 30 days 30 caps 6RF Coding Level of Care Code Est Pt Level 4 (30067) Diagnoses Erosive esophagitis K22.10 Chronic gastritis without bleeding, unspecified gastritis type K29.50 Gastritis type: unspecified gastritis Chronicity: chronic Gastritis bleeding: without bleeding Abdominal pain, LUQ (left upper quadrant) R10.12 Slow transit constipation K59.01 Constipation type: slow transit constipation Nausea R11.0 Postprandial abdominal bloating R14.0 Time Spent (min) 35 Comment 20 minutes spent with patient and additional 15 minutes spent reviewing his records
== END 2024-01-26 13:21 | disposition home or self-care (01) ==
PROVIDERS: PCP Nurse Practitioner Primary Care; Visit Provider Nurse Practitioner Family
DX: K22.10 Ulcer of esophagus without bleeding (principal); K29.50 Unspecified chronic gastritis without bleeding; R10.12 Left upper quadrant pain; K59.01 Slow transit constipation; R11.0 Nausea; R14.0 Abdominal distension (gaseous)
CPT/HCPCS: 99214

== ENCOUNTER → 2024-01-26 12:27 | Outpatient (BNVA) | payer OTHER, SELFPAY | PROVIDERS: PCP Nurse Practitioner Primary Care; Visit Provider Nurse Practitioner Family | DX: K21.9 Gastro-esophageal reflux disease without esophagitis (principal); K22.10 Ulcer of esophagus without bleeding; K29.50 Unspecified chronic gastritis without bleeding; K59.01 Slow transit constipation; R10.12 Left upper quadrant pain; R11.0 Nausea; R14.0 Abdominal distension (gaseous); R74.01 Elevation of levels of liver transaminase levels; K29.81 Duodenitis with bleeding | CPT/HCPCS: 99212 ==

== ENCOUNTER 2024-02-16 09:19 | Outpatient (REF) | payer OTHER, SELFPAY ==
--- NOTE | ~2024-02-16 | US_ITS ---
EXAMINATION: US ABDOMEN COMPLETE CLINICAL INFORMATION: Unspecified abdominal pain. COMPARISON: None available. TECHNIQUE: Real-time imaging of the abdominal viscera. FINDINGS: PANCREAS: Visualized portions are unremarkable. ABDOMINAL AORTA: The proximal, mid, and distal segments are normal in caliber. INFERIOR VENA CAVA: Visualized portions are normal. LIVER: Heterogeneous liver texture combined with nodular surface raising suspicion for liver parenchymal disease liver cirrhosis. No ultrasound evidence of focal liver lesion. No intra or extrahepatic biliary dilatation. GALLBLADDER: The gallbladder is physiologically distended without evidence of stones, sludge, polyps, wall thickening or pericholecystic fluid. COMMON BILE DUCT: Normal in caliber measuring 0.2 cm in diameter. RIGHT KIDNEY: No hydronephrosis. No renal calculi or focal parenchymal lesions. The kidney measures 10.6 cm in maximum dimension. LEFT KIDNEY: No hydronephrosis. No renal calculi or focal parenchymal lesions. The kidney measures 11.4 cm in maximum dimension. SPLEEN: The spleen measures 9.3 cm in maximum dimension. FREE FLUID: None. US/US abdomen complete IMPRESSION: 1. Heterogeneous liver texture with nodular surface raising suspicion for liver parenchymal disease hepatic steatosis versus liver cirrhosis. 2. No ultrasound evidence of focal liver lesion. 3. No ultrasound explanation for patient's pain. Electronically signed by: Romulo Garza MD 02/29/2024 01:18 PM [facility]
[2024-02-16 11:15] LABS: Hematocrit 43.6 % (42.0-52.0); Hemoglobin 14.5 g/dl (14.0-18.0); Mean Corpuscular HGB Conc 33.3 g/dl (31.0-36.0); Mean Corpuscular Hemoglobin 28.1 pg (27.0-33.0); Mean Corpuscular Volume 84.5 fL (80.0-98.0); Mean Platelet Volume 10.8 fL (9.4-12.4); Platelet Count 187 X10*3/uL (160-400); Red Blood Count 5.16 X10*6/uL (4.60-5.80); Red Cell Distribution Width 13.5 % (11.0-16.0)
[2024-02-16 12:25] LABS: Alanine Aminotransferase 22 U/L (0-40); Alkaline Phosphatase 51 U/L (39-117); Aspartate Amino Transferase 21 U/L (5-37); Bilirubin Direct 0.1 mg/dL (0.0-0.5); Bilirubin Total 0.3 mg/dL (0.0-1.0); Blood Urea Nitrogen 12 mg/dL (9-16); Estimated Glomerular Filt Rate > 60; Lipase 21 U/L (8-78); Total Protein 7.1 g/dL (6.5-8.0)
[2024-02-16 12:26] LABS: PSA,Total (Free>4and<10) 6.34 ng/mL (0.00-4.00)
[2024-02-17 13:14] LABS: Free Prostate Spec Ag 0.8 ng/mL; Percent Free Prostate Spec Ag 14 % (calc) (>25); Prostate Specific Ag Total 5.8 ng/mL (< OR = 4.0)
[2024-02-22 14:33] LABS: Pancreatic Elastase-1 >800 mcg/g (>200)
== END 2024-02-16 09:20 | disposition home or self-care (01) ==
LOC: HO.US 09:19
PROVIDERS: Urology; PCP Nurse Practitioner Primary Care; Visit Provider Nurse Practitioner Family
DX: R10.9 Unspecified abdominal pain (principal); Z12.5 Encounter for screening for malignant neoplasm of prostate; R10.11 Right upper quadrant pain; R74.01 Elevation of levels of liver transaminase levels; K21.9 Gastro-esophageal reflux disease without esophagitis
CPT/HCPCS: 36415; 76700; 80076; 82565; 82656; 83690; 84153; 84154; 84520; 85027

== ENCOUNTER 2024-05-07 15:48 | Outpatient (AMB) | payer OTHER, SELFPAY ==
--- NOTE | 2024-05-07 15:50 | A.OFFVIS_ITS ---
Vital Signs 05/07/24 15:52 Height 5 ft 10 in Weight 181 lb 3.52 oz BMI 26.0 BP 118/66 Blood Pressure Location Rt brachial Position Sitting Pulse 74 Pulse Source Pulse Oximeter Pulse Oximetry (%) 96 Oxygen Delivery Method Room Air Intake Visit Reasons: f/u Intake Note: ESTABLISHED PATIENT for hx of esophagitis + abd pain mgmt. US and labs done. Chief Complaint; Pt is looking for clarification on EGD scheduling. Pt states he was never called and would still like to have this done. Pt does report however that his reflux has been well controlled with the new Rx for Nexium. No GI concerns at this time. Sterilization Specialist Required: Yes Sterilization Specialist Services: Sterilization Specialist Present Sterilization Specialist Name: MARGI DUMONT. [id number] Yolanda Information Interpreted: clinical only Accompanied by: Self / Same As Patient Allergies No Known Drug Allergies Allergy (Verified 05/20/24 11:36) Unknown [facility] Medical History Postnasal drip Dysphagia Early satiety Esophagitis Varicose vein of scrotum Hiatal hernia Acid reflux Ulcer Surgical History History of esophagogastroduodenoscopy (EGD) Hx of colonoscopy Family History Unknown No problems noted. Social History Household Members: Spouse and Children Alcohol intake: never Patient Tobacco Use Status: Never used Tobacco Current occupation: [employer] Const Denies weight gain and Denies weight loss ENT Reports no additional complaints, Denies dysphagia and Denies odynophagia Card Reports no additional complaints Resp Reports no additional complaints GI Denies abdominal pain, Denies belching, Denies melena, Denies bloating, Denies change in bowel habits, Denies dysphagia, Denies excessive flatus, Denies dyspepsia, Denies heartburn, Denies diarrhea, Denies loose stools, Denies nausea, Denies odynophagia and Denies vomiting Reports no additional complaints Musc Reports no additional complaints Neuro Reports no additional complaints Psych Reports no additional complaints Endo Reports no additional complaints Physical Exam Vital Signs: Last Vital Signs Pulse 74 05/07/24 15:52 BP 118/66 05/07/24 15:52 Pulse Ox 96 05/07/24 15:52 Oxygen Delivery Method Room Air 05/07/24 15:52 BMI result Body Mass Index 26.0 Const General: healthy appearing, no acute distress and well developed Nutritional Appearance: well nourished Orientation/consciousness: patient oriented x3 Resp Effort & Inspection: normal respiratory effort, able to speak in complete sentences, no tracheal deviation and symmetric chest movement Auscultation: clear to auscultation bilaterally Cardio Rate: regular rate GI Inspection: Yes normal to inspection and No distended Palpation (GI): Soft to palpation, not firm, nontender and No hepatosplenomegaly present Auscultation: normal bowel sounds General: Yes no CVA tenderness Back/Spine/Pelvis Back: no CVA tenderness Skin General skin exam: elasticity normal, turgor normal and dry skin Neuro General: patient oriented x3 Psych Appearance: grossly normal Mental Status: mental status grossly normal Assessment & Plan Assessment & Plan (1) Erosive esophagitis: Code(s): K22.10 - Ulcer of esophagus without bleeding (2) Gastritis: Code(s): K29.70 - Gastritis, unspecified, without bleeding Qualifiers: Gastritis type: unspecified gastritis Chronicity: chronic Gastritis bleeding: without bleeding Qualified Code(s): K29.50 - Unspecified chronic gastritis without bleeding (3) Abdominal pain, LUQ (left upper quadrant): Code(s): R10.12 - Left upper quadrant pain (4) Constipation: Code(s): K59.00 - Constipation, unspecified Qualifiers: Constipation type: slow transit constipation Qualified Code(s): K59.01 - Slow transit constipation (5) Nausea: Code(s): R11.0 - Nausea (6) Postprandial abdominal bloating: Code(s): R14.0 - Abdominal distension (gaseous) Plan Patient will go for upper GI with barium swallow. Continue taking Nexium. Avoid dietary triggers in late night snacking. Staying upright for minimal 3 hours after meals discussed with patient. Patient reports that he is moving his bowels well now. Denies any melena, hematochezia, unintentional weight loss or ribbon like stools. Follow-up in 4 months, sooner on as needed basis. Patient is agreeable to this plan and verbalizes understanding of instructions. He was given the opportunity to ask questions and all questions answered. Thank you for allowing me to participate in his care Orders: Orders [place] upper GI w Ba Swallow 05/07/24 K21.9 - Gastro-esophageal reflux disease without esophagitis Medications: Refilled esomeprazole magnesium (Nexium) 40 mg PO DAILY 90 caps 1RF K21.9 - Gastro- esophageal reflux disease without esophagitis Coding Level of Care Code Est Pt Level 4 (76801) Complex EM visit Add On G2211 Diagnoses Erosive esophagitis K22.10 Chronic gastritis without bleeding, unspecified gastritis type K29.50 Gastritis type: unspecified gastritis Chronicity: chronic Gastritis bleeding: without bleeding Abdominal pain, LUQ (left upper quadrant) R10.12 Slow transit constipation K59.01 Constipation type: slow transit constipation Nausea R11.0 Postprandial abdominal bloating R14.0 Time Spent (min) 35 Comment 25 minutes spent with patient and additional 10 minutes spent reviewing his records
[2024-05-07 15:52] VITALS: BP 118/66; PULSE 74; O2SAT 96; BMI 26.0
--- OUTSIDE RECORDS SUMMARY | 2024-05-07 17:48 | XMS_ITS | Clinical Summary ---
Author Organization [employer] Address [address] [place] [address] 7[address] [place] [address] Care Team Providers [facility] Director Name Role Phone Abilio Mcnamara Primary Care Provider [phone] Allergies No known active allergies Medications * This document contains information received from the source organization and may not represent a complete record from that organization. sucralfate (Carafate) 1 g tablet Take 1 tablet by mouth every 12 (twelve) hours. Take one hour before breakfast and one hour before bed Active cyclobenzaprine (Flexeril) 10 MG tablet TAKE 1 TABLET BY MOUTH 3 TIMES A DAY NEEDED FOR MUSCLE SPASM 3 Active esomeprazole (NexIUM) [address] capsuleIndicatio ns:Gastroesophag eal reflux disease with esophagitis without hemorrhage TAKE 1 CAPSULE (40 MG) BY MOUTH EVERY DAY AT BEDTIME 90 capsule 3 Active ondansetron (Zofran) 4 MG/5ML solution Take 5 mL (4 mg) by mouth if needed in the morning, at noon, and at bedtime for nausea or vomiting. 50 mL 4 Active sodium chloride ([place] Nasal [place]) 0.65 % nasal sprayIndications :Nasal congestion 1-2 sprays on each nostril every 2-3 hours as needed for nasal congestion 30 mL 1 4 Active albuterol 108 (90 Base) MCG/ACT inhalerIndicatio ns:Mild intermittent reactive airway disease without complication Inhale 2 puffs Every 4-6 hours as needed for wheezing or shortness of breath. 18 g 1 4 Active Acetaminophen 500 MG capsuleIndicatio ns:Sore throat Take 2 capsules (1,000 mg) by mouth every 8 (eight) hours if needed for moderate pain, headaches or fever. 100 capsule 4 Active fluticasone (Flonase Allergy Relief) 50 MCG/ACT nasal sprayIndications :Nasal congestion Administer 2 sprays into each nostril Once per day. Use as needed for nasal congestion 1-2 times/d 48 g 5 Active loratadine (Claritin) 10 MG tabletIndication s:Nasal congestion,Mild intermittent reactive airway disease without complication Take 1 tablet (10 mg) by mouth Once per day. 90 tablet 5 Active pseudoephedrine ER (Sudafed-12 Hour) 120 MG 12 hr tablet Take 1 tablet (120 mg) by mouth every 12 (twelve) hours if needed for congestion. Do not crush, chew, or split. 20 tablet 5 04/05/19 26 Active ibuprofen 600 MG tablet Take 1 tablet (600 mg) by mouth every 6 (six) hours if needed for mild pain or fever. 40 tablet 1 5 06/05/19 25 Active lidocaine (Lidoderm) 5 % patch Apply 1 patch topically in the morning. Remove & discard patch within 12 hours or as directed by MD. 30 patch 2 4 04/24/19 25 Active Problems Problem Noted Date Diagnosed Date MDD (major depressive disorder), single episode, moderate 09/17/2022 Assessment & Plan (10/21/2022 4:44 PM EDT): Presented with irritability rather than anhedonia. Consider PTSD with wire tester trauma, persistant memories (?flashbacks) but no hyperarousal. Does have poor sleep with nightmares. No red flags for BPD. Pt has good insight, counseling will be carmona. Today he says he is not really interested in medication, so will cancel Rx for Escitalopram 5 mg once daily. No F/U with me at this time, but he can request new appt in the future if necessary. He agrees with the plan. Assessment & Plan (09/17/2022 5:07 PM EDT): With irritability rather than anhedonia. Consider PTSD with wire tester trauma, persistant memories (?flashbacks) but no hyperarousal. Does have poor sleep with nightmares. No red flags for BPD. Pt has good insight, counseling will be carmona. Will start SSRI Escitalopram 5 mg once daily. Explained that effect would likely be gradual and could take up to several weeks. However, if he feels worse: increased depression or SI, worsened mood swings, etc. He should stop the medication right away. Also cautioned about chance of sexual dysfunction, if that occurs also let me know. F/U 1 month. He agrees with the plan. Depression, unspecified 07/08/2022 Anxiety disorder, unspecified 07/08/2022 Gastroesophageal reflux disease 03/29/2022 Hiatal hernia 03/29/2022 Viral disease 03/29/2022 Encounters Date Type Department Care Team Description 04/05/2024 12:00 PM EST Office Visit [facility] [address] [place] [address] Kristina Burger DO Acute URI (Primary Dx); Nasal congestion; Mild intermittent reactive airway disease without complication 04/05/2024 Travel 02/16/2024 Orders Only GENERIC EXTERNAL DATA DEPARTMENT Provider, Generic External Data from Last 3 Months Social History Tobacco Use Types Packs/Day Years Used Date Smoking Tobacco: Never Passive Smoke Exposure: Never Smokeless Tobacco: Never Tobacco Cessation:Counseling Given: Not Answered Alcohol Use Standard Drinks/Week Comments Not Currently 0 (1 standard drink = 0.6 oz pur e alcohol) Depression Answer Date Recorded Patient Health Questionnaire-9 Score 2 10/21/2022 Housing Stability Answer Date Recorded What is your housing situation today? I have miguel pacheco 12/25/[address] you li ve. Do you have problems with any of the following? None of the above 12/25/2022 Food Insecurity Answer Date Recorded Within the past 12 months, y ou worried that your food would run out before you got money to buy more: Sometimes True 2022 Within the past 12 months,th e food you bought just didn't last and you didn't have enough money to get more: Sometimes True 12/25/2022 Transportation Answer Date Recorded In the past 12 months, has l ack of transportation kept you from medical appts, meetings, work or from getting things needed for daily living? No 12/25/2022 Utilities Answer Date Recorded In the past 12 months, has t he electric, gas, oil or water company threatened to shut off services in your home? No 12/25/2022 Depression Answer Date Recorded Patient Health Questionnaire-2 Score 0 10/21/2022 Sex and Gender Information Value Date Recorded Sex Assigned at Male 01/07/2022 10:36 AM EDT Legal Sex Male 10:36 AM EDT Gender Identity Male 01/07/2022 10:36 AM EDT Sexual Orientation Straight 01/07/2022 10 :36 AM EDT Last Filed Vital Signs Vital Sign Reading Time Taken Comments Blood Pressure 120/60 04/05/2024 12:12 PM EST Pulse 86 04/05/2024 12:12 PM EST Temperature 36.3 ??C (97.3 ??F) 04/05/2024 12:[address] Respiratory Rate 20 04/05/2024 12:12 PM EST Oxygen Saturation 100% 12/09/2023 9:37 AM EDT Inhaled Oxygen Concentration - - Weight 82.6 kg (182 lb) 04/05/2024 12:12 PM EST Height 180.3 cm (5' 11 ) 04/05/2024 12:12 PM EST Body Mass Index 25.38 04/05/2024 12:12 PM EST Plan of Treatment Health Maintenance Due Date Last Done Comments CT Colonography 1978 Colonoscopy 1978 Colorectal Cancer Screening 1978 FIT DNA/Cologuard 1978 FIT 1978 FOBT 1978 HIV Screening 1978 Lipid Panel 1978 Sigmoidoscopy 1978 Alcohol/Substance Use Screening 1990 Family Planning (PISQ) 1993 Hepatitis C Screening 1996 DTaP/Tdap/Td Vaccines (1 - Tdap) 1997 Hepatitis B Vaccines (1 of 3 - 19+ 3-dose series) 1997 Pneumococcal Vaccine: Pediatrics (0 to 5 Years) and At-Risk Patients (6 to 49) Years) (1 of 2 - PCV) 1997 Depression Screening 10/22/2023 10/21/2022, 10/21/2022 COVID-19 Vaccine (3 - 2023-2 5 season) 2023 08/25/2020, 07/10/2020 Influenza Vaccine (#1) 2023 SDOH Screening 11/29/2023 11/28/2022 Tobacco Screening 12/08/2024 12/09/2023 Zoster Vaccines (1 of 2) 2028 RSV Patients and Patients Aged 60 years or older (1 - 1-dose 75+ series) 2053 HIB Vaccines Aged Out No longer eligi ble based on patient's age to complete this topic HPV Vaccines Aged Out No longer eligi ble based on patient's age to complete this topic Hepatitis A Vaccines Aged Out No long er eligible based on patient's age to complete this topic IPV Vaccines Aged Out No longer eligi ble based on patient's age to complete this topic Meningococcal Vaccine Aged Out No norah lillian eligible based on patient's age to complete this topic RSV under 20 months Aged Out No longe r eligible based on patient's age to complete this topic Rotavirus Vaccines Aged Out No longer eligible based on patient's age to complete this topic Procedures Procedure Name Priority Date/Time Associated Diagnosis Comments POCT INFLUENZA A (ID NOW RAPID MOLECULAR) Routine 04/05/2024 12:20 PM EST Acute URI POCT INFLUENZA B (ID NOW RAPID MOLECULAR) Routine 04/05/2024 12:19 PM EST Acute URI POC CONLEY ID NOW STREP A Routine 04/05/2024 12:18 PM EST Acute URI POCT COVID-19 AG CONLEY ID NOW Routine 04/05/2024 12:17 PM EST Acute URI PSA, FREE AND TOTAL Routine 02/16/2024 1 2:26 PM EST PSA, TOTAL WITH REFLEX TO PSA, FREE Routine 02/16/2024 10:16 AM EST LIPASE Routine 02/16/2024 10:16 AM EST CREATININE, SERUM Routine 02/16/2024 10: 16 AM EST UREA NITROGEN (BUN) Routine 02/16/2024 1 0:16 AM EST HEPATIC FUNCTION PANEL Routine 02/16/2024 10:16 AM EST CBC Routine 02/16/2024 10:16 AM EST US ABDOMEN COMPLETE Routine 02/16/2024 9 :44 AM EST PANCREATIC ELASTASE, FECAL Routine 02/16/2024 8:53 AM EST from Last 3 Months Results * POCT Rapid Influenza A CONLEY ID NOW (04/05/2024 12:20 PM EST) Influenza A Negative Negative, Indeterminate [facility] QC Media Lot # [id number] [facility] Lot# Expiration Date [facility] Swab 04/05/2024 12:2 0 PM EST Kristina Burger DO POINT OF CARE TEST ENTER/CYNTHIA T ORDERABLES Final Result Performing Organization Address [facility]/ZIP Co de Phone Number [facility] [address] [place] [phone] * POCT Rapid Influenza B [place] ID NOW (04/05/2024 12:19 PM EST) Influenza B Negative Negative, Indeterminate [facility] QC Media Lot # [id number] [facility] Lot# Expiration Date [facility] Swab 04/05/2024 12:1 9 PM EST Kristina Burger DO POINT OF CARE TEST ENTER/CYNTHIA T ORDERABLES Final Result Performing Organization Address City/[facility]/ZIP Co de Phone Number [facility] [address] [place] [phone] * POCT Rapid Strep A CONLEY ID NOW (04/05/2024 12:18 PM EST) [facility] Rapid Strep A Screen Negative Negative, None Detected QC Media Lot # [id number] Lot# Expiration Date [id number] Swab 04/05/2024 12:1 8 PM EST Kristina Jennyfer DO POINT OF CARE TEST ENTER/CYNTHIA T ORDERABLES Final Result * POCT Rapid Covid-19 [place] ID NOW (04/05/2024 12:17 PM EST) [facility] Coronavirus Antigen PCR Negative Negative, Indeterminate, None Detected, Invalid, Specimen unsatisfactory for evaluation, Weakly Positive QC Media Lot # [id number] Lot# Expiration Date 5,026 Swab 04/05/2024 12:1 7 PM EST Kristina Burger DO POINT OF CARE TEST ENTER/CYNTHIA T ORDERABLES Final Result * (ABNORMAL) PSA, Free and Total (02/16/2024 12:26 PM EST) [facility] PSA, Total 5.8(A) < OR = 4.0 ng/mL [facility] PSA % Free 14(A) >25 % (calc) [facility] Comment: PSA(ng/mL) ?Free PSA(%) ? Estimated(x) Probability ? of Cancer(as%)0-2.5 ?(*) ? Approx. 12.6-4.0(1) ? 0-27(2) ? 24(3)4.1-10(4) ?0-10 ?56 ? 11-15 ? 28 ? 16-20 ? 20 ? 21-25 ? 16 ? >or =26 ? 8>10(+) ? N/A ?>50References:(1)Pau.:Urology 60: 469-474 (2002) ? (2)Megan nair al.:J.Urol 168: 922-925 (2002) ?Free PSA(%) ?? Sensitivity(%) ??Specificity(%) ?< or = 25 ?85 ?19 ?< or = 30 ?93 ? 9 ? (3)Megan et al.:MARCELO 277: 9625-3184 (1996) ? (4)Megan et al.:MARCELO 279: 0327-5578 (1997)(x)These estimates vary with age, ethnicity, family ?? history and HUMA results.(*)The diagnostic usefulness of % Free PSA has not been ?? established in patients with total PSA below 2.6 ng/mL(+)In men with PSA above 10 ng/mL, prostate cancer risk is ?? determined by total PSA alone.The Total PSA value from this assay system isstandardized against the equimolar PSA standard.The test result will be approximately 20% higherwhen compared to the WHO-standardized Total PSA(Siemens assay). Comparison of serial PSA resultsshould be interpreted with this fact in mind.PSA was performed using the Tiffanie CoulterImmunoassay method. Values obtained from differentassay methods cannot be used interchangeably. PSAlevels, regardless of value, should not be interpretedas absolute evidence of the presence or absence ofdisease.THIS TEST WAS PERFORMED AT:[employer] [place] [address] ??[id number] PEREZ MD PSA, Free 0.8 ng/mL [facility] 02/16/2024 12:2 6 PM EST 02/16/2024 12:26 PM EST Generic External Data Provider LAB BLOOD ORDERAB LES Final Result Performing Organization Address [facility] Co de Phone Number [facility] [address] [place] [phone] * (ABNORMAL) PSA, Total With Reflex to PSA, Free (02/16/2024 10:16 AM EST) PSA,Total (Free>4and<10) 6.34(H) 0.00 - 4.00 ng/mL [facility] Comment:PSA methodology: Abb suman Walton i ChemiluminescentMicroparticle Immunoassay (CMIA) 02/16/2024 10:1 6 AM EST 02/16/2024 10:16 AM EST Generic External Data Provider LAB BLOOD ORDERAB LES Final Result Performing Organization Address [facility] Co de Phone Number [facility] [address] [place] [phone] * Creatinine, Serum (02/16/2024 10:16 AM EST) Creatinine, Serum 0.84 0.5 - 1.4 mg/dL [facility] Estimated Glomerular Filt Rate >60 [facility] Comment:Chronic Kidney Disea se: Estimated GFR < 60 mL/min/1.56n1Slwpoe Kidney Disease: Estimated GFR < 15 mL/min/1.73m2 02/16/2024 10:1 6 AM EST 02/16/2024 10:16 AM EST us Generic External Data Provider LAB BLOOD ORDERAB LES Final Result [facility] [address] [place] [phone] * CBC (02/16/2024 10:16 AM EST) White Blood Count 6.0 4.8 - 10.8 X10*3/uL [facility] Red Blood Count 5.16 4.60 - 5.80 X10*6/uL [facility] Hemoglobin 14.5 14.0 - 18.0 g/dl [facility] Hematocrit 43.6 42.0 - 52.0 % [facility] Mean Corpuscular Volume 84.5 80.0 - 98.0 fL [facility] Mean Corpuscular Hemoglobin 28.1 27.0 - 33.0 pg [facility] Mean Corpuscular HGB Conc 33.3 31.0 - 36.0 g/dl [facility] Red Cell Distribution Width 13.5 11.0 - 16.0 % [facility] Platelet Count 187 160 - 400 X10*3/uL [facility] Mean Platelet Volume 10.8 9.4 - 12.4 fL [facility] NRBC Pct Auto 0.0 0.0 - 0.2 /100WBC [facility] NRBC Abs Auto 0.000 0.0 - 0.012 X10*3/uL [facility] 02/16/2024 10:1 6 AM EST 02/16/2024 10:16 AM EST us Generic External Data Provider LAB BLOOD ORDERAB LES Final Result Performing Organization Address [facility] Co de Phone Number [facility] [address] [place] [phone] * BUN (Blood Urea Nitrogen) (02/16/2024 10:16 AM EST) Urea Nitrogen (BUN) 12 9 - 16 mg/dL [facility] 02/16/2024 10:1 6 AM EST 02/16/2024 10:16 AM EST us Generic External Data Provider LAB BLOOD ORDERAB LES Final Result Performing Organization Address [facility] Co de Phone Number [facility] [address] [place] [phone] * Lipase (02/16/2024 10:16 AM EST) Lipase 21 8 - 78 U/L [facility] 02/16/2024 10:1 6 AM EST 02/16/2024 10:16 AM EST us Generic External Data Provider LAB BLOOD ORDERAB LES Final Result Performing Organization Address [facility] Co de Phone Number [facility] [address] [place] [phone] * Hepatic Function Panel (02/16/2024 10:16 AM EST) Bilirubin, Total 0.3 0.0 - 1.0 mg/dL [facility] Bilirubin, Direct 0.1 0.0 - 0.5 mg/dL [facility] Aspartate Amino Transferase 21 5 - 37 U/L [facility] Alanine Aminotransferase 22 0 - 40 U/L [facility] Total Protein 7.1 6.5 - 8.0 g/dL [facility] Albumin Level 4.0 3.5 - 5.0 g/dL [facility] Alkaline Phosphatase 51 39 - 117 U/L [facility] 02/16/2024 10:1 6 AM EST 02/16/2024 10:16 AM EST us Generic External Data Provider LAB BLOOD ORDERAB LES Final Result [facility] [address] [place] [phone] * US Abdomen Complete (02/16/2024 9:44 AM EST) Anatomical Region Laterality Modality Abdomen Ultrasound 02/16/2024 9:44 AM EST Narrative 02/29/2024 1:21 PM EST ? [facility] ?[address] ?[place] [address] ? Ultrasound Report ? Signed ? Patient: Gurmeet Lancaster ?MR#: MM ?? [id number] ? : 1980 ?Acct:[id number] ? Age/Sex: 43 / M ?ADM Date: 02/16/24 ? Loc: HO.US ? Attending Dr: Britta MINER ? Ordering Physician: Britta Villa ?? Date of Service: 02/16/24 ?? Procedure(s): US abdomen complete ?? Accession Number(s): [id number] ? cc: Britta Villa; ABILIO MCNAMARA NP ? EXAMINATION: ?? US ABDOMEN COMPLETE ? CLINICAL INFORMATION: ?? Unspecified abdominal pain. ? COMPARISON: ?? None available. ? TECHNIQUE: ?? Real-time imaging of the abdominal viscera. ? FINDINGS: ? PANCREAS: Visualized portions are unremarkable. ? ABDOMINAL AORTA: The proximal, mid, and distal segments are normal in ?? caliber. ? INFERIOR VENA CAVA: Visualized portions are normal. ? LIVER: Heterogeneous liver texture combined with nodular surface ?? raising suspicion for liver parenchymal disease liver cirrhosis. No ?? ultrasound evidence of focal liver lesion. No intra or extrahepatic ?? biliary dilatation. ? GALLBLADDER: The gallbladder is physiologically distended without ?? evidence of stones, sludge, polyps, wall thickening or pericholecystic ?? fluid. ? COMMON BILE DUCT: Normal in caliber measuring 0.2 cm in diameter. ? RIGHT KIDNEY: No hydronephrosis. No renal calculi or focal parenchymal ?? lesions. The kidney measures 10.6 cm in maximum dimension. ? LEFT KIDNEY: No hydronephrosis. No renal calculi or focal parenchymal ?? lesions. The kidney measures 11.4 cm in maximum dimension. ? SPLEEN: The spleen measures 9.3 cm in maximum dimension. ? FREE FLUID: None. ? US/US abdomen complete ?? IMPRESSION: ? 1. ??Heterogeneous liver texture with nodular surface raising suspicion ?? for liver parenchymal disease hepatic steatosis versus liver cirrhosis. ? 2. ??No ultrasound evidence of focal liver lesion. ? 3. ??No ultrasound explanation for patient's pain. ? Electronically signed by: ??Romulo Garza MD ??02/29/2024 01:18 PM EST ? Dictated By: ?Romulo Garza MD ? Signed By: ?<Electronically signed by Romulo Garza MD in OV> ?02/29/24 1318 ? DD/ ? TD/TT: 02/16/2457 ? Livestock Showman: HS ? Procedure Note Zahraa Llanos - 02/29/2024 [place] [address] Ultrasound Report Signed Patient: Gurmeet Lancaster#: [id number] : 1980Acct:[id number] Age/Sex: 43 / MADM Date: 02/16/24 Loc: HO.US Attending Dr: Britta MINER Ordering Physician: Britta Villa Date of Service: 02/16/24 Procedure(s): US abdomen complete Accession Number(s): [id number] cc: Britta Villa; ABILIO MCNAMARA NP EXAMINATION: US ABDOMEN COMPLETE CLINICAL INFORMATION: Unspecified abdominal pain. COMPARISON: None available. TECHNIQUE: Real-time imaging of the abdominal viscera. FINDINGS: PANCREAS: Visualized portions are unremarkable. ABDOMINAL AORTA: The proximal, mid, and distal segments are normal in caliber. INFERIOR VENA CAVA: Visualized portions are normal. LIVER: Heterogeneous liver texture combined with nodular surface raising suspicion for liver parenchymal disease liver cirrhosis. No ultrasound evidence of focal liver lesion. No intra or extrahepatic biliary dilatation. GALLBLADDER: The gallbladder is physiologically distended without evidence of stones, sludge, polyps, wall thickening or pericholecystic fluid. COMMON BILE DUCT: Normal in caliber measuring 0.2 cm in diameter. RIGHT KIDNEY: No hydronephrosis. No renal calculi or focal parenchymal lesions. The kidney measures 10.6 cm in maximum dimension. LEFT KIDNEY: No hydronephrosis. No renal calculi or focal parenchymal lesions. The kidney measures 11.4 cm in maximum dimension. SPLEEN: The spleen measures 9.3 cm in maximum dimension. FREE FLUID: None. US/US abdomen complete IMPRESSION: 1. Heterogeneous liver texture with nodular surface raising suspicion for liver parenchymal disease hepatic steatosis versus liver cirrhosis. 2. No ultrasound evidence of focal liver lesion. 3. No ultrasound explanation for patient's pain. Electronically signed by: Romulo Garza MD 02/29/2024 01:18 PM EST RP Dictated By: Romulo Garza MD Signed By: <Electronically signed by Romulo Garza MD in OV> 02/29/24 1318 DD/ 0944 TD/TT: 02/16/24 0957 Livestock Showman: us [facility] External Provider IMG US PROCEDURES Edited Result - Final * Pancreatic elastase, fecal (02/16/2024 8:53 AM EST) Pancreatic Elastase 1 >800 >200 mcg/g [facility] Comment:E-1 mcg/g feces Inte rpretation <100 Severe exocrine pancreatic insufficiency 100-200 Mild to moderate exocrine pancreatic insufficiency >200 NormalTHIS TEST WAS PERFORMED AT:[employer] [id number] YOMAIRA LINDQUIST, JACKY [id number] EDWARDS MD,PHD,[place] 02/16/2024 8:53 AM EST 02/16/2024 11:47 AM EST us Generic External Data Provider LAB BODY FLUIDS A ND STOOLS ORDERABLES Final Result [facility] [address] [place] [phone] from Last 3 Months Insurance HS FULL [facility] Care Teams Day [facility] Director Relationship Specialty Start Date End Date Abilio Mcnamara ANP [address] [place] [phone] PCP - General Family Medicine 01/15/19
== END 2024-05-07 16:16 | disposition home or self-care (01) ==
PROVIDERS: PCP Nurse Practitioner Primary Care; Visit Provider Nurse Practitioner Family
DX: K22.10 Ulcer of esophagus without bleeding (principal); K29.50 Unspecified chronic gastritis without bleeding; R10.12 Left upper quadrant pain; K59.01 Slow transit constipation; R11.0 Nausea; R14.0 Abdominal distension (gaseous)
CPT/HCPCS: 99214; G2211

== ENCOUNTER → 2024-05-07 15:48 | Outpatient (BNVA) | payer OTHER, SELFPAY | PROVIDERS: PCP Nurse Practitioner Primary Care; Visit Provider Nurse Practitioner Family | DX: K22.10 Ulcer of esophagus without bleeding (principal); K29.50 Unspecified chronic gastritis without bleeding; R10.12 Left upper quadrant pain; K59.01 Slow transit constipation; R11.0 Nausea; R14.0 Abdominal distension (gaseous); K21.9 Gastro-esophageal reflux disease without esophagitis | CPT/HCPCS: 99212 ==

== ENCOUNTER 2024-05-15 14:54 | Emergency (ER) | payer OTHER, SELFPAY ==
[2024-05-15 15:02] VITALS: BP 118/75; PULSE 85; RESP 20; TEMP 36.5; O2SAT 99; BMI 24.2
--- NOTE | 2024-05-15 15:05 | ED.GENADULT ---
HPI - General Adult General Chief complaint: Nausea/Vomiting/Diarrhea Stated complaint: diarrhea Time Seen by Provider: 05/15/24 18:23 Source: patient Limitations: language barrier History of Present Illness ED Provider: Monique Brewer PA-C HPI narrative: 43-year-old male with a history GERD with self report of ?stomach ulcers?, presents with diarrhea x6 days. Patient states he is having black-colored stools, with lower abdominal cramping prior to the onset of diarrhea. Patient is not having multiple episodes throughout the day. Associated poorly controlled reflux. Denies nausea, vomiting, no coffee-ground emesis. Patient states he has been using Pepto-Bismol to treat his diarrhea. Denies use of antibiotics, recent travel or hospitalization. No sick contacts with same symptoms. Related Data Home Medications ?Medication ?Instructions ?Recorded ?Confirmed lidocaine 5 % topical patch 1 patch topical DAILY PRN pain 02/20/23 09/04/23 (Lidoderm) loratadine 10 mg tablet 10 mg PO DAILY PRN allergies 06/05/23 09/04/23 Previous Rx's ?Medication ?Instructions ?Recorded tamsulosin 0.4 mg capsule (Flomax) 0.4 mg PO BEDTIME #30 caps 09/04/23 aluminum hydrox-magnesium carb 254 10 ml PO QID PRN dyspepsia #355 mL 09/23/23 mg-237.5 mg/5 mL oral suspension (Gaviscon Extra Strength) cyclobenzaprine 10 mg tablet 10 mg PO TID PRN muscle pain or 09/23/23 spasm #20 tabs magnesium citrate 296 ml PO ONCE #296 mL 09/24/23 esomeprazole magnesium 40 mg 40 mg PO DAILY #90 caps 05/07/24 capsule,delayed release (Nexium) dicyclomine 20 mg tablet 20 mg PO BID PRN abdominal pain 05/15/24 #10 tabs sucralfate 100 mg/mL oral 10 ml PO QID PRN indigestion #300 05/15/24 suspension (Carafate) mL Allergies Allergy/AdvReac Type Severity Reaction Status Date / Time No Known Drug Allergies Allergy Unknown Verified 05/15/24 15:07 Review of Systems Review of Systems: Yes all other systems are reviewed and are negative Constitutional: Constitutional: Denies fatigue and Denies fever(s) Cardiovascular: Cardiovascular: Denies chest pain and Denies dyspnea Respiratory: Respiratory: Denies dyspnea Gastrointestinal: Gastrointestinal: Reports melena, Denies coffee ground emesis, Reports GI cramping, Reports dyspepsia, Reports diarrhea, Denies nausea and Denies vomiting Endocrine: Endocrine: Denies fatigue [facility] Past Medical History Attestation statement: The following information was validated with the patient. Medical History Postnasal drip Dysphagia Early satiety Esophagitis Varicose vein of scrotum Hiatal hernia Acid reflux Ulcer Surgical History History of esophagogastroduodenoscopy (EGD) Hx of colonoscopy Family History Family History Unknown No problems noted. 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 Physical Exam ED Vital Signs: Vital Signs - 24 hr 05/15/24 15:02 05/15/24 19:13 Temperature 97.7 F 97.7 F Pulse Rate 85 89 Respiratory Rate 20 16 Blood Pressure 118/75 114/82 Pulse Oximetry 99 98 Oxygen Delivery Method Room Air Room Air BMI result Body Mass Index 24.2 Const Other: Alert well-appearing Orientation/consciousness: patient oriented x3 Resp Effort & Inspection: normal respiratory effort Cardio Other: Normal peripheral perfusion GI Other: Abdomen is soft, nontender nondistended no guarding Skin Other: Warm dry no rash Neuro General: patient oriented x3, gait normal, no focal motor deficits and CN's II-XI intact bilaterally Psych Other: Cooperative Course Course Course Narrative: This is a Rapid Medical Examination (RME) performed by Jesus Grimaldo PA-C in triage. Full HPI, ROS, assessment and treatment plan per primary provider in the Main ED. 43 yo bruneian speaking male hx of gastritis, erosive, esophagitis, hiatal hernia, patulous GEJ here w/ melena x6 days. associated abd pain, pain worse after eating. follows w/ [facility]. Plan: labs, OBS, will defer imaging to primary provider Medications Administered Discontinued Medications Generic Name Dose Route Start Last Admin Trade Name Jose PRN Reason Stop Dose Admin Dicyclomine HCl 20 mg 05/15/24 18:40 05/15/24 19:10 Dicyclomine Hcl 10 Mg Capsule PO 05/15/24 18:41 20 mg ONCE ONE Administration Sucralfate 1 gm 05/15/24 18:40 05/15/24 19:11 Sucralfate Oral Suspension 1 Gm/10 Ml Oral.Susp PO 05/15/24 18:41 1 gm ONCE ONE Administration Medical Decision Making Medical Decision Making MDM Narrative: 43-year-old male with a history GERD with self report of ?stomach ulcers?, presents with diarrhea x6 days. Patient states he is having black-colored stools, with lower abdominal cramping prior to the onset of diarrhea. Patient is not having multiple episodes throughout the day. Associated poorly controlled reflux. Denies nausea, vomiting, no coffee-ground emesis. Patient states he has been using Pepto-Bismol to treat his diarrhea. Denies use of antibiotics, recent travel or hospitalization. No sick contacts with same symptoms. Problem: GERD, peptic ulcer History: Per patient I have considered the following differential diagnoses: Upper GI bleed, lower GI bleed, perforated peptic ulcer, viral gastroenteritis, viral syndrome, C diff, traveler's diarrhea, indigestion Plan: The patient has no evidence of GI bleeding, the Pepto-Bismol is making the stool black, screening labs were obtained from triage, his H&H is completely stable. Thought about perforated ulcer, however there was no coffee-ground emesis, there are no peritoneal signs on exam, he does not warrant imaging. Thought about viral gastroenteritis, however there were no sick contacts with similar symptoms, he is afebrile and he is not having any active vomiting. He also has no risk factors for C diff or traveler's diarrhea. It sounds as if his acid reflux is poorly controlled, perhaps he is eating a food that is triggering his diarrhea as well. We will send with home care instructions with Carafate and dicyclomine. He can continue to follow up with primary care. I have independently reviewed the following tests: Labs: No leukocytosis, not anemic, no electrolyte abnormality noted Lab Data 05/15/24 15:11 05/15/24 15:11 Labs: Lab Results 05/15/24 Range/Units 15:11 WBC 8.8 (4.8-10.8) X10*3/uL RBC 5.28 (4.60-5.80) X10*6/uL Hgb 14.7 (14.0-18.0) g/dl Hct 42.9 (42.0-52.0) % MCV 81.3 (80.0-98.0) fL MCH 27.8 (27.0-33.0) pg MCHC 34.3 (31.0-36.0) g/dl RDW 13.5 (11.0-16.0) % Plt Count 223 (160-400) X10*3/uL MPV 10.3 (9.4-12.4) fL Immature Gran % (Auto) 0.2 (0.0-0.4) % Neut % (Auto) 68.1 (45-73) % Lymph % (Auto) 19.2 L (20-40) % Elbert % (Auto) 9.3 (2-11) % Eos % (Auto) 2.5 (0-4) % Baso % (Auto) 0.7 (0-2) % Lymph # (Auto) 1.7 (1.2-4.9) X10*3/uL Elbert # (Auto) 0.8 (0.1-1.2) X10*3/uL Eos # (Auto) 0.2 (0.0-0.4) X10*3/uL Baso # (Auto) 0.1 (0.0-0.2) X10*3/uL Abs Immat Gran (auto) 0.02 (0.00-0.03) X10*3/uL Absolute Neuts (auto) 6.0 (2.0-8.3) x10*3/uL Absolute Nucleated RBC 0.000 (0.0-0.012) X10*3/uL Nucleated RBC % (auto) 0.0 (0.0-0.2) /100WBC Sodium 141 (135-145) mmol/L Potassium 4.1 (3.3-5.1) mmol/L Chloride 107 (96-108) mmol/L Carbon Dioxide 27 (22-29) mmol/L Anion Gap 11 L (12-20) BUN 13 (9-16) mg/dL Creatinine 0.96 (0.5-1.4) mg/dL Estim Creat Clear Calc 106.6 Estimated GFR > 60 Random Glucose 75 (60-115) mg/dL Calcium 9.0 D (8.4-10.2) mg/dL Magnesium 2.0 (1.6-2.6) mg/dL Total Bilirubin 0.3 (0.0-1.0) mg/dL AST 25 (5-37) U/L ALT 41 H (0-40) U/L Alkaline Phosphatase 61 (39-117) U/L Total Protein 7.8 (6.5-8.0) g/dL Albumin 4.0 (3.5-5.0) g/dL Lipase 20 (8-78) U/L Discharge Plan Discharge Clinical Impression: GERD (gastroesophageal reflux disease), Diarrhea Patient Disposition: Home, Self-Care Instructions: Diet for Stomach Ulcers and Gastritis (ED), Gastroesophageal Reflux Disease (ED), Acute Diarrhea (ED), Indigestion (ED) Additional Instructions: It sounds as if your acid reflux is poorly controlled, there are many dietary triggers that can cause these symptoms. Some common foods that can cause indigestion/refux symptoms are spicy food, acidic food, greasy fatty food, mint, anything carbonated, caffeine, alcohol. You should also not eat 3 hours before bed. Eating smaller meals throughout the day can also help to deter symptoms. Use the Carafate as needed for your indigestion, use the dicyclomine as needed for lower abdominal cramping and diarrhea. Stop using the Pepto-Bismol, this is causing your black stool. Follow up with primary care provider as needed. Prescriptions: New sucralfate [Carafate] 100 mg/mL suspension 10 ml PO QID PRN (Reason: indigestion) Qty: 300 0RF Rx Instructions: swish in mouth and swallow; use after food/drink dicyclomine 20 mg tablet 20 mg PO BID PRN (Reason: abdominal pain) Qty: 10 0RF No Action Gaviscon Extra Strength 254-237.5 mg/5 mL suspension 10 ml PO QID PRN (Reason: dyspepsia) Qty: 355 0RF cyclobenzaprine 10 mg tablet 10 mg PO TID PRN (Reason: muscle pain or spasm) Qty: 20 0RF lidocaine [Lidoderm] 5 % adhesive patch,medicated 1 patch topical DAILY PRN (Reason: pain) Rx Instructions: leave on most painful area for up to 12 hrs loratadine 10 mg tablet 10 mg PO DAILY PRN (Reason: allergies) tamsulosin [Flomax] 0.4 mg capsule 0.4 mg PO BEDTIME Qty: 30 4RF esomeprazole magnesium [Nexium] 40 mg capsule,delayed release(DR/EC) 40 mg PO DAILY Qty: 90 1RF magnesium citrate Solution 296 ml PO ONCE Qty: 296 0RF Rx Instructions: Lorena la botella entera la noche anterior a bernabe procedimiento Print Language: German
[2024-05-15 15:24] LABS: MANUAL DIFF FLAG NO
[2024-05-15 15:25] LABS: Basophils Absolute Auto 0.1 X10*3/uL (0.0-0.2); Basophils Percent Auto 0.7 % (0-2); Eosinophils Absolute Auto 0.2 X10*3/uL (0.0-0.4); Eosinophils Percent Auto 2.5 % (0-4); Hematocrit 42.9 % (42.0-52.0); Hemoglobin 14.7 g/dl (14.0-18.0); Imm Gran Abs Auto 0.02 X10*3/uL (0.00-0.03); Imm Gran Pct Auto 0.2 % (0.0-0.4); Lymphocytes Absolute Auto 1.7 X10*3/uL (1.2-4.9); Lymphocytes Percent Auto 19.2 % (20-40); Mean Corpuscular HGB Conc 34.3 g/dl (31.0-36.0); Mean Corpuscular Hemoglobin 27.8 pg (27.0-33.0); Mean Corpuscular Volume 81.3 fL (80.0-98.0); Mean Platelet Volume 10.3 fL (9.4-12.4); Monocytes Absolute Auto 0.8 X10*3/uL (0.1-1.2); Monocytes Percent Auto 9.3 % (2-11); Neutrophils Percent Auto 68.1 % (45-73); Platelet Count 223 X10*3/uL (160-400); Red Blood Count 5.28 X10*6/uL (4.60-5.80); Red Cell Distribution Width 13.5 % (11.0-16.0); White Blood Count 8.8 X10*3/uL (4.8-10.8)
[2024-05-15 15:51] LABS: Alanine Aminotransferase 41 U/L (0-40); Anion Gap 11 (12-20); Aspartate Amino Transferase 25 U/L (5-37); Bilirubin Total 0.3 mg/dL (0.0-1.0); Blood Urea Nitrogen 13 mg/dL (9-16); Carbon Dioxide 27 mmol/L (22-29); Chloride 107 mmol/L (96-108); Creatinine Clr Calc Pharmacy 106.6; Estimated Glomerular Filt Rate > 60; Glucose Random 75 mg/dL (60-115); Lipase 20 U/L (8-78); Potassium 4.1 mmol/L (3.3-5.1); Sodium 141 mmol/L (135-145); Total Protein 7.8 g/dL (6.5-8.0)
[2024-05-15 16:10] LABS: Alkaline Phosphatase 61 U/L (39-117)
[2024-05-15] MEDS: Dicyclomine HCl 10 MG CAPSULE 20 MG PO (19:10)
[2024-05-15] MEDS: Sucralfate Oral Suspension 1 GM/10 ML ORAL.SUSP PO (19:11)
[2024-05-15 19:13] VITALS: BP 114/82; PULSE 89; RESP 16; TEMP 36.5; O2SAT 98
--- NOTE | 2024-05-15 21:11 | PC.NURSE ---
pt was medicated per order and requested to see the provider as they wanted to go over discharge instructions with them, provider went into the room and she discharged patient
[2024-05-15 21:12] VITALS: BP 116/76; PULSE 88; RESP 16; TEMP 36.6; O2SAT 98
== END 2024-05-15 21:13 | disposition home or self-care (01) ==
PROVIDERS: Physician Assistant Medical; Emergency Provider Emergency Medicine Emergency Medical Services; PCP Nurse Practitioner Primary Care
DX: K21.9 Gastro-esophageal reflux disease without esophagitis (principal); R19.7 Diarrhea, unspecified; R10.13 Epigastric pain
CPT/HCPCS: 36415; 80053; 83690; 83735; 85025; 99282; 99283

== ENCOUNTER 2024-05-20 11:32 | Outpatient (AMB) | payer OTHER, SELFPAY ==
--- NOTE | 2024-05-20 11:35 | A.OFFVIS_ITS ---
Vital Signs 05/20/24 11:36 Height 5 ft 10 in Weight 176 lb 5.917 oz BMI 25.3 BP 94/66 Blood Pressure Location Rt brachial Position Sitting Pulse 84 Pulse Source Pulse Oximeter Pulse Oximetry (%) 96 Oxygen Delivery Method Room Air Intake Visit Reasons: 05/17/24-ED F/u Black Stools Intake Note: ESTABLISHED PATIENT for ED FUV. Review CT from [facility]. Chief Complaint; C/O sx for 8 days including; diarrhea, abd pain (epigastric) and cramping upon having BM. Currently, pt states that his sx are slightly improved but still present. Pt reports receiving ddx of colitis from [facility] ED. Job Printer Required: Yes Job Printer Services: Job Printer Present Job Printer Name: [facility] + Erik [id number] Information Interpreted: clinical only Accompanied by: Self / Same As Patient Allergies No Known Drug Allergies Allergy (Verified 05/20/24 11:36) Unknown HPI HPI 05/17/24-ED F/u Black Stools: Details: LAST VISIT Erosive esophagitis Gastritis Abdominal pain, LUQ (left upper quadrant) Constipation Nausea Postprandial abdominal bloating Plan Patient will go for upper GI with barium swallow. Continue taking Nexium. Avoid dietary triggers in late night snacking. Staying upright for minimal 3 hours after meals discussed with patient. Patient reports that he is moving his bowels well now. Denies any melena, hematochezia, unintentional weight loss or ribbon like stools. Follow-up in 4 months, sooner on as needed basis. Patient is agreeable to this plan and verbalizes understanding of instructions. He was given the opportunity to ask questions and all questions answered. ? Thank you for allowing me to participate in his care Orders Orders [place] upper GI w Ba Swallow 05/07/24 K21.9 Medications Refilled esomeprazole magnesium (Nexium) 40 mg PO DAILY 90 caps 1RF K21.9 VISIT AT [facility] ED 05/15/2024 MDM Narrative: 43-year-old male with a history GERD with self report of ?stomach ulcers?, presents with diarrhea x6 days. Patient states he is having black-colored stools, with lower abdominal cramping prior to the onset of diarrhea. Patient is not having multiple episodes throughout the day. Associated poorly controlled reflux. Denies nausea, vomiting, no coffee-ground emesis. Patient states he has been using Pepto-Bismol to treat his diarrhea. Denies use of antibiotics, recent travel or hospitalization. No sick contacts with same symptoms. Problem: GERD, peptic ulcer History: Per patient I have considered the following differential diagnoses: Upper GI bleed, lower GI bleed, perforated peptic ulcer, viral gastroenteritis, viral syndrome, C diff, traveler's diarrhea, indigestion Plan: The patient has no evidence of GI bleeding, the Pepto-Bismol is making the stool black, screening labs were obtained from triage, his H&H is completely stable. Thought about perforated ulcer, however there was no coffee-ground emesis, there are no peritoneal signs on exam, he does not warrant imaging. Thought about viral gastroenteritis, however there were no sick contacts with similar symptoms, he is afebrile and he is not having any active vomiting. He also has no risk factors for C diff or traveler's diarrhea. It sounds as if his acid reflux is poorly controlled, perhaps he is eating a food that is triggering his diarrhea as well. We will send with home care instructions with Carafate and dicyclomine. He can continue to follow up with primary care. I have independently reviewed the following tests: Labs: No leukocytosis, not anemic, no electrolyte abnormality noted Laboratory Tests 05/15/24 15:11 Total Bilirubin 0.3 AST 25 ALT 41 H Alkaline Phosphatase 61 Laboratory Tests 05/15/24 15:11 WBC 8.8 Hgb 14.7 Hct 42.9 VISIT AT [facility] ED 05/18/2024 Labs reviewed and normal, no leukocytosis, normal H&H, mildly elevated ALT normal AST, normal alk phosphate and bilirubin. CT scan showed possible colitis. TODAY'S VISIT Patient is here today for requested visit. Patient was seen in the office last month and was doing better, however seen in the ER at [facility] couple days ago for abdominal pain and diarrhea for several days. Patient had diarrhea for 8 days prior to ED visit with left upper and left lower quadrant pain. Patient today feels better still has abdominal bloating and mild left upper and left lower quadrant pain. Patient suffered in the past with constipation mostly and has not experienced diarrhea for more than 1 day in the past. History of acid reflux for very long time to endoscopies done within the last 2-1/2 years. Patient has been on PPI for some time. He also was given sucralfate and has taken that in the past with some results. Currently his symptoms are not very well controlled. Patient still continues to have reflux depending on what he eats. Patient denies any nausea or vomiting. Denies any dyspepsia, dysphagia or odynophagia. As mentioned above in ER notes patient had black stool, used Pepto-Bismol which make his stool black. No actual rectal bleed. Denies hematochezia. [facility] Medical History Postnasal drip Dysphagia Early satiety Esophagitis Varicose vein of scrotum Hiatal hernia Acid reflux Ulcer Surgical History History of esophagogastroduodenoscopy (EGD) Hx of colonoscopy Family History Unknown No problems noted. Social History Household Members: Spouse and Children Alcohol intake: never Patient Tobacco Use Status: Never used Tobacco Current occupation: [employer] Review of Systems Const Denies weight gain and Denies weight loss ENT Reports no additional complaints, Denies dysphagia and Denies odynophagia Card Reports no additional complaints Resp Reports no additional complaints GI Denies abdominal pain (LUQ), Denies belching, Denies melena, Reports bloating, Denies change in bowel habits, Denies dysphagia, Denies excessive flatus, Reports dyspepsia, Reports heartburn, Denies diarrhea, Denies loose stools, Reports nausea, Denies odynophagia and Denies vomiting Reports no additional complaints Musc Reports no additional complaints Neuro Reports no additional complaints Psych Reports no additional complaints Endo Reports no additional complaints Physical Exam Vital Signs: Last Vital Signs Pulse 84 05/20/24 11:36 BP 94/66 05/20/24 11:36 Pulse Ox 96 05/20/24 11:36 Oxygen Delivery Method Room Air 05/20/24 11:36 BMI result Body Mass Index 25.3 Const General: healthy appearing, no acute distress and well developed Nutritional Appearance: well nourished Orientation/consciousness: patient oriented x3 Resp Effort & Inspection: normal respiratory effort, able to speak in complete sentences, no tracheal deviation and symmetric chest movement Auscultation: clear to auscultation bilaterally Cardio Rate: regular rate GI Inspection: Yes normal to inspection and No distended Palpation (GI): Soft to palpation, not firm, nontender and No hepatosplenomegaly present Auscultation: normal bowel sounds General: Yes no CVA tenderness Back/Spine/Pelvis Back: no CVA tenderness Skin General skin exam: elasticity normal, turgor normal and dry skin Neuro General: patient oriented x3 Psych Appearance: grossly normal Mental Status: mental status grossly normal Assessment & Plan Assessment & Plan (1) Erosive esophagitis: Code(s): K22.10 - Ulcer of esophagus without bleeding (2) Gastritis: Code(s): K29.70 - Gastritis, unspecified, without bleeding Qualifiers: Gastritis type: other gastritis Chronicity: chronic Gastritis bleeding: without bleeding Qualified Code(s): K29.50 - Unspecified chronic gastritis without bleeding (3) Abdominal pain, LUQ (left upper quadrant): Code(s): R10.12 - Left upper quadrant pain (4) Constipation: Code(s): K59.00 - Constipation, unspecified Qualifiers: Constipation type: slow transit constipation Qualified Code(s): K59.01 - Slow transit constipation (5) Nausea: Code(s): R11.0 - Nausea (6) Postprandial abdominal bloating: Code(s): R14.0 - Abdominal distension (gaseous) (7) Colitis: Code(s): K52.9 - Noninfective gastroenteritis and colitis, unspecified (8) Diarrhea: Code(s): R19.7 - Diarrhea, unspecified Qualifiers: Diarrhea type: functional diarrhea Qualified Code(s): K59.1 - Functional diarrhea Plan Patient was encouraged to increase fiber. Will check transglutaminase to rule out celiac although patient had endoscopies done in the past celiac sprue not found on biopsy. Will check CRP and fecal calprotectin to rule out inflammatory bowel disease, however minimal elevation in fecal calprotectin can be seen when patient had viral enteritis and diarrhea for longer period of time. May need to be repeated, however patient should probably go for colonoscopy if he continues. Patient was encouraged to increase fluid intake and activity. Continue PPI. If patient is not responding well to PPI we might change him to [place]. Patient has appointment with us in August. He will call us sooner if he will have worsening symptoms or any other GI concerning symptoms. He is agreeable to current plan of care and verbalizes understanding of instructions. He was given the opportunity to ask questions and all questions answered. Thank you for allowing me to participate in his care Orders: Orders C Reactive Protein 05/20/24 K58.9 - Irritable bowel syndrome, unspecified Transglutaminase IgA 05/20/24 R10.9 - Unspecified abdominal pain Calprotectin, Fecal 05/20/24 R15.9 - Full incontinence of feces Coding Level of Care Code Est Pt Level 5 (56556) Complex EM visit Add On G2211 Diagnoses Erosive esophagitis K22.10 Other chronic gastritis without hemorrhage K29.50 Gastritis type: other gastritis Chronicity: chronic Gastritis bleeding: without bleeding Abdominal pain, LUQ (left upper quadrant) R10.12 Slow transit constipation K59.01 Constipation type: slow transit constipation Nausea R11.0 Postprandial abdominal bloating R14.0 Colitis K52.9 Functional diarrhea K59.1 Diarrhea type: functional diarrhea Time Spent (min) 50 Comment 30 minutes spent with patient and additional 20 minutes spent reviewing his records
[2024-05-20 11:36] VITALS: BP 94/66; PULSE 84; O2SAT 96; BMI 25.3
== END 2024-05-20 14:33 | disposition home or self-care (01) ==
LOC: HO.HGI 11:33
PROVIDERS: PCP Nurse Practitioner Primary Care; Visit Provider Nurse Practitioner Family
DX: K22.10 Ulcer of esophagus without bleeding (principal); K29.50 Unspecified chronic gastritis without bleeding; K59.01 Slow transit constipation; R11.0 Nausea; R14.0 Abdominal distension (gaseous); K52.9 Noninfective gastroenteritis and colitis, unspecified
CPT/HCPCS: 99215; G2211

== ENCOUNTER 2024-05-20 11:32 | Outpatient (REF) | payer OTHER, SELFPAY ==
[2024-05-20 14:22] LABS: C Reactive Protein 0.92 mg/dL (< or = 0.50)
--- OUTSIDE RECORDS SUMMARY | 2024-05-20 16:03 | XMS_ITS | Encounter Summary ---
Author Organization [employer] Address [address] [place] [address] [address] [place] [address] Care Team Providers Care Doctor Of Naturopathic Medicine Name Role Phone Blanca Quinn Primary Care Provider [phone] Encounter Details Date Type Department Care Team (Late st Contact Info) Description 05/15/2024 Orders Only GENERIC EXTERNAL DATA DEPARTMENT Provider, Generic External Data Social History Tobacco Use Types Packs/Day Years Used Date Smoking Tobacco: Never Passive Smoke Exposure: Never Smokeless Tobacco: Never Alcohol Use Standard Drinks/Week Comments Not Currently [...] Orientation Straight 01/07/2022 10 :36 AM EDT documented as of this encounter Plan of Treatment Not on file documented as of this encounter Procedures Procedure Name Priority Date/Time Associated Diagnosis Comments CBC WITH AUTO DIFFERENTIAL Routine 05/15/2024 3:11 PM EST MAGNESIUM Routine 05/15/2024 3:11 PM EST LIPASE Routine 05/15/2024 3:11 PM EST COMPREHENSIVE METABOLIC PANEL Routine 05/15/2024 3:11 PM EST documented in this encounter Results * Lipase (05/15/2024 3:11 PM EST) Lipase 20 8 - 78 U/L [facility] 05/15/2024 3:11 PM EST 05/15/2024 3:22 PM EST us Generic External Data Provider LAB BLOOD ORDERAB LES Final Result Performing Organization Address City/[facility]/ZIP Co de Phone Number [facility] [address] [place] [phone] * Magnesium (05/15/2024 3:11 PM EST) Pathologist [facility] Magnesium 2.0 1.6 - 2.6 mg/dL [facility] 05/15/2024 3:11 PM EST 05/15/2024 3:22 PM EST Generic External Data Provider LAB BLOOD ORDERAB LES Final Result Performing Organization Address [facility] Co de Phone Number [facility] [address] [place] [phone] * (ABNORMAL) Comprehensive Metabolic Panel (05/15/2024 3:11 PM EST) Sodium 141 135 - 145 mmol/L [facility] Potassium 4.1 3.3 - 5.1 mmol/L [facility] Chloride 107 96 - 108 mmol/L [facility] Carbon Dioxide 27 22 - 29 mmol/L [facility] Anion Gap 11(L) 12 - 20 [facility] Urea Nitrogen (BUN) 13 9 - 16 mg/dL [facility] Creatinine, Serum 0.96 0.5 - 1.4 mg/dL [facility] Creatinine Clr Calc Pharmacy 106.6 [facility] Comment:eGFR (calculated fro m the MDRD study equation) and eCrCl(calculated from the Cockcroft-Gault equation) are based ondifferent parameters and may not yield comparable results.If eCrCl result is absurd, please check patient'sheight/weight. Estimated Glomerular Filt Rate >60 [facility] Comment:Chronic Kidney Disea se: Estimated GFR < 60 mL/min/[id number] Kidney Disease: Estimated GFR < 15 mL/min/1.73m2 Glucose 75 60 - 115 mg/dL [facility] Calcium 9.0 8.4 - 10.2 mg/dL [facility] Bilirubin, Total 0.3 0.0 - 1.0 mg/dL [facility] Aspartate Amino Transferase 25 5 - 37 U/L [facility] Alanine Aminotransferase 41(H) 0 - 40 U/L [facility] Total Protein 7.8 6.5 - 8.0 g/dL [facility] Albumin Level 4.0 3.5 - 5.0 g/dL [facility] Alkaline Phosphatase 61 39 - 117 U/L [facility] 05/15/2024 3:11 PM EST 05/15/2024 3:22 PM EST us Generic External Data Provider LAB BLOOD ORDERAB LES Final Result [facility] [address] [place] [address] [phone] * (ABNORMAL) CBC auto differential (05/15/2024 3:11 PM EST) White Blood Count 8.8 4.8 - 10.8 X10*3/uL [facility] Red Blood Count 5.28 4.60 - 5.80 X10*6/uL [facility] Hemoglobin 14.7 14.0 - 18.0 g/dl [facility] Hematocrit 42.9 42.0 - 52.0 % [facility] Mean Corpuscular Volume 81.3 80.0 - 98.0 fL [facility] Mean Corpuscular Hemoglobin 27.8 27.0 - 33.0 pg [facility] Mean Corpuscular HGB Conc 34.3 31.0 - 36.0 g/dl [facility] Red Cell Distribution Width 13.5 11.0 - 16.0 % [facility] Platelet Count 223 160 - 400 X10*3/uL [facility] Mean Platelet Volume 10.3 9.4 - 12.4 fL [facility] Neutrophils Percent Auto 68.1 45 - 73 % [facility] Imm Gran Pct Auto 0.2 0.0 - 0.4 % [facility] Lymphocytes Percent Auto 19.2(L) 20 - 40 % [facility] Monocytes Percent Auto 9.3 2 - 11 % [facility] Eosinophils Percent Auto 2.5 0 - 4 % [facility] Basophils Percent Auto 0.7 0 - 2 % [facility] NRBC Pct Auto 0.0 0.0 - 0.2 /100WBC [facility] Neutrophils Absolute Auto 6.0 2.0 - 8.3 x10*3/uL [facility] Imm Gran Abs Auto 0.02 0.00 - 0.03 X10*3/uL [facility] Lymphocytes Absolute Auto 1.7 1.2 - 4.9 X10*3/uL [facility] Monocytes Absolute Auto 0.8 0.1 - 1.2 X10*3/uL [facility] Eosinophils Absolute Auto 0.2 0.0 - 0.4 X10*3/uL [facility] Basophils Absolute Auto 0.1 0.0 - 0.2 X10*3/uL [facility] NRBC Abs Auto 0.000 0.0 - 0.012 X10*3/uL [facility] 05/15/2024 3:11 PM EST 05/15/2024 3:22 PM EST us Generic External Data Provider LAB BLOOD ORDERAB LES Final Result [facility] [address] [place] [phone] documented in this encounter Visit Diagnoses Not on filedocumented in this encounter Additional Health Concerns Assessment Noted Time PHQ-9 Depression Total Score: 2 10/22/19 23 4:00 PM EDT documented as of this encounter Care Teams Doctor Of Naturopathic Medicine Relationship Specialty Start Date End Date Blanca Quinn ANP [address] [place] [phone] PCP - General Family Medicine 01/15/19 documented as of this encounter
--- OUTSIDE RECORDS SUMMARY | 2024-05-20 16:03 | XMS_ITS | Encounter Summary ---
Author Organization [employer] Address [address] [place] [address] [address] [place] [address] Care Team Providers Care Owner Professional Engineer Name Role Phone Blanca Quinn Primary Care Provider [phone] Encounter Details Date Type Department Care Team (Late st Contact Info) Description 05/20/2024 Orders Only GENERIC EXTERNAL DATA DEPARTMENT Provider, [...] Procedure Name Priority Date/Time Associated Diagnosis Comments C-REACTIVE PROTEIN Routine 05/20/2024 12 :52 PM EDT documented in this encounter Results * (ABNORMAL) C-reactive Protein (05/20/2024 12:52 PM EDT) C Reactive Protein 0.92(H) < or = 0.50 mg/dL [facility] 05/20/2024 12:5 2 PM EDT 05/20/2024 12:52 PM EDT us Generic External Data Provider LAB BLOOD ORDERAB LES Final Result Performing Organization Address City/State/[facility] Co de Phone Number [facility] [address] [place] [phone] documented in this encounter Visit Diagnoses Not on filedocumented in this encounter Additional Health Concerns Assessment Noted Time PHQ-9 Depression Total Score: 2 10/22/19 23 4:00 PM EDT documented as of this encounter Care Teams Owner Professional Engineer Relationship Specialty Start Date End Date Blanca Quinn ANP [address] [place] [address] PCP - General Family Medicine 01/15/19 documented as of this encounter
--- OUTSIDE RECORDS SUMMARY | 2024-05-20 16:03 | XMS_ITS | Clinical Summary ---
Author Organization [employer] Address [address] [place] [address] [address]t [place] [address] Care Team Providers Care Recycling Center Operator Name Role Phone Blanca Quinn Primary Care Provider [phone] Allergies No known active allergies Medications * [...] vomiting. 50 mL 4 Active sodium chloride ([place] [facility] [place]) 0.65 % nasal sprayIndications :Nasal congestion 1-2 [...] irritability rather than anhedonia. Consider PTSD with mate first trauma, persistant memories (?flashbacks) but no hyperarousal. [...] irritability rather than anhedonia. Consider PTSD with mate first trauma, persistant memories (?flashbacks) but no hyperarousal. [...] Encounters Date Type Department Care Team Description 05/20/2024 Orders Only GENERIC EXTERNAL DATA DEPARTMENT Provider, Generic External Data 05/17/2024 Telephone [facility] [address] [place] [phone] Skylar Gottlieb RN GI F/U 05/15/2024 Orders Only GENERIC EXTERNAL DATA DEPARTMENT Provider, Generic External Data 04/05/2024 12:00 PM EST Office Visit [facility] [address] [place] [address] Kristina Burger DO Acute URI (Primary Dx); Nasal congestion; Mild intermittent reactive airway disease without complication 04/05/2024 Travel from Last 3 Months Social History Tobacco [...] PROTEIN Routine 05/20/2024 12 :52 PM EDT LIPASE Routine 05/15/2024 3:11 PM EST MAGNESIUM Routine 05/15/2024 3:11 PM EST COMPREHENSIVE METABOLIC PANEL Routine 05/15/2024 3:11 PM EST CBC WITH AUTO DIFFERENTIAL Routine 05/15/2024 3:11 PM EST POCT INFLUENZA A (ID NOW RAPID MOLECULAR) Routine 04/05/2024 12:20 PM EST Acute URI POCT INFLUENZA B (ID NOW RAPID MOLECULAR) Routine 04/05/2024 12:19 PM EST Acute URI POC [place] ID NOW STREP A Routine 04/05/2024 12:18 PM EST Acute URI POCT COVID-19 AG [place] ID NOW Routine 04/05/2024 12:17 PM EST Acute URI from Last 3 Months Results * (ABNORMAL) C-reactive Protein (05/20/2024 12:52 PM EDT) Pathologist [facility] C Reactive Protein 0.92(H) < or = 0.50 mg/dL [facility] 05/20/2024 12:5 2 PM EDT 05/20/2024 12:52 PM EDT us Generic External Data Provider LAB BLOOD ORDERAB LES Final Result Performing Organization Address City/State/[facility] Co de Phone Number [facility] [address] [place] [phone] * (ABNORMAL) CBC auto differential (05/15/2024 3:11 PM EST) Pathologist [facility] White Blood Count 8.8 4.8 - 10.8 X10*3/uL [facility] Red Blood Count 5.28 4.60 - 5.80 X10*6/uL [facility] Hemoglobin 14.7 14.0 - 18.0 g/dl [facility] Hematocrit 42.9 42.0 - 52.0 % [facility] Mean Corpuscular Volume 81.3 80.0 - 98.0 fL [facility] Mean Corpuscular Hemoglobin 27.8 27.0 - 33.0 pg [facility] Mean Corpuscular HGB Conc 34.3 31.0 - 36.0 g/dl [facility] Red Cell Distribution Width 13.5 11.0 - 16.0 % [facility] Platelet Count 223 160 - 400 X10*3/uL [facility] Mean Platelet Volume 10.3 9.4 - 12.4 fL [facility] Neutrophils Percent Auto 68.1 45 - 73 % [facility] Imm Gran Pct Auto 0.2 0.0 - 0.4 % [facility] Lymphocytes Percent Auto 19.2(L) 20 - 40 % [facility] Monocytes Percent Auto 9.3 2 - 11 % [facility] Eosinophils Percent Auto 2.5 0 - 4 % [facility] Basophils Percent Auto 0.7 0 - 2 % [facility] NRBC Pct Auto 0.0 0.0 - 0.2 /100WBC [facility] Neutrophils Absolute Auto 6.0 2.0 - 8.3 x10*3/uL [facility] Imm Gran Abs Auto 0.02 0.00 - 0.03 X10*3/uL [facility] Lymphocytes Absolute Auto 1.7 1.2 - 4.9 X10*3/uL [facility] Monocytes Absolute Auto 0.8 0.1 - 1.2 X10*3/uL [facility] Eosinophils Absolute Auto 0.2 0.0 - 0.4 X10*3/uL [facility] Basophils Absolute Auto 0.1 0.0 - 0.2 X10*3/uL [facility] NRBC Abs Auto 0.000 0.0 - 0.012 X10*3/uL [facility] 05/15/2024 3:11 PM EST 05/15/2024 3:22 PM EST us Generic External Data Provider LAB BLOOD ORDERAB LES Final Result Performing Organization Address [facility] Co de Phone Number [facility] [address] [place] [phone] * Magnesium (05/15/2024 3:11 PM EST) Magnesium 2.0 1.6 - 2.6 mg/dL [facility] 05/15/2024 3:11 PM EST 05/15/2024 3:22 PM EST us Generic External Data Provider LAB BLOOD ORDERAB LES Final Result Performing Organization Address City/[facility]/ZIP Co de Phone Number [facility] [address] [place] [phone] [phone] * Lipase (05/15/2024 3:11 PM EST) Lipase 20 8 - 78 U/L [facility] 05/15/2024 3:11 PM EST 05/15/2024 3:22 PM EST us Generic External Data Provider LAB BLOOD ORDERAB LES Final Result Performing Organization Address [facility] Co de Phone Number [facility] [address] [place] [phone] * (ABNORMAL) Comprehensive Metabolic Panel (05/15/2024 3:11 PM EST) Pathologist [facility] Sodium 141 135 - 145 mmol/L [facility] Potassium 4.1 3.3 - 5.1 mmol/L [facility] Chloride 107 96 - 108 mmol/L [facility] Carbon Dioxide 27 22 - 29 mmol/L [facility] Anion Gap 11(L) 12 - 20 [facility] Urea Nitrogen (BUN) 13 9 - 16 mg/dL [facility] Creatinine, Serum 0.96 0.5 - 1.4 mg/dL [facility] Creatinine Clr Calc Pharmacy 106.6 [facility] Comment:eGFR (calculated fro m the MDRD study equation) and eCrCl(calculated from the Cockcroft-Gault equation) are based ondifferent parameters and may not yield comparable results.If eCrCl result is absurd, please check patient'sheight/weight. Estimated Glomerular Filt Rate >60 [facility] Comment:Chronic Kidney Disea se: Estimated GFR < 60 mL/min/1.52h5Iduyjd Kidney Disease: Estimated GFR < 15 mL/min/1.73m2 Glucose 75 60 - 115 mg/dL [facility] Calcium 9.0 8.4 - 10.2 mg/dL [facility] Bilirubin, Total 0.3 0.0 - 1.0 mg/dL [facility] Aspartate Amino Transferase 25 5 - 37 U/L [facility] Alanine Aminotransferase 41(H) 0 - 40 U/L [facility] Total Protein 7.8 6.5 - 8.0 g/dL [facility] Albumin Level 4.0 3.5 - 5.0 g/dL [facility] Alkaline Phosphatase 61 39 - 117 U/L [facility] 05/15/2024 3:11 PM EST 05/15/2024 3:22 PM EST Generic External Data Provider LAB BLOOD ORDERAB LES Final Result Performing Organization Address [facility]/ZIP Co de Phone Number [facility] [address] [place] [phone] * POCT Rapid Influenza A [place] ID NOW (04/05/2024 12:20 PM EST) Influenza A Negative Negative, Indeterminate [facility] QC Media Lot # [id number] [facility] Lot# Expiration Date [facility] Swab 04/05/2024 12:2 0 PM EST Kristina Burger DO POINT OF CARE TEST ENTER/CYNTHIA T ORDERABLES Final Result Performing Organization Address [facility]/ZIP Co de Phone Number [facility] [address] [place] [phone] * POCT Rapid Influenza B [place] ID NOW (04/05/2024 12:19 PM EST) Influenza B Negative Negative, Indeterminate [facility] QC Media Lot # [id number] [facility] Lot# Expiration Date [facility] Swab 04/05/2024 12:1 9 PM EST Kristina Burger DO POINT OF CARE TEST ENTER/CYNTHIA T ORDERABLES Final Result [facility] [address] [place] [address] [phone] * POCT Rapid Strep A [place] ID NOW (04/05/2024 12:18 PM EST) [facility] Rapid Strep A Screen Negative Negative, None Detected QC Media Lot # [id number] Lot# Expiration Date [id number] Swab 04/05/2024 12:[address] [facility] Jennyfer DO POINT OF CARE TEST ENTER/CYNTHIA T ORDERABLES Final Result * POCT Rapid Covid-19 [place] ID NOW (04/05/2024 12:17 PM EST) [facility] Coronavirus Antigen PCR Negative Negative, Indeterminate, None Detected, Invalid, Specimen unsatisfactory for evaluation, Weakly Positive QC Media Lot # [id number] Lot# Expiration Date [id number] Swab 04/05/2024 12:1 7 PM EST Kristina Jennyfer DO POINT OF CARE TEST ENTER/CYNTHIA T ORDERABLES Final Result from Last 3 Months Insurance [facility] FULL [facility] Care Teams Recycling Center Operator Relationship Specialty Start Date End Date Blanca Quinn ANP [address] [place] [phone] PCP - General Family Medicine 01/15/19
--- OUTSIDE RECORDS SUMMARY | 2024-05-20 16:03 | XMS_ITS | Encounter Summary ---
Author Organization [employer] Address [address] [place] [address] [address] [place] [address] Care Team Providers Care Note Keeper Name Role Phone Blanca Quinn ERYN Primary Care Provider [phone] Reason for Visit * Reason Onset Date Comments GI F/U 05/17/2024 Encounter Details Date Type Department Care Team ([facility] st Contact Info) Description 05/17/2024 Telephone [facility] [address] [place], [place] [phone] Skylar Gottlieb RN GI F/U Social History Tobacco Use Types Packs/Day Years Used Date Smoking Tobacco: Never Passive Smoke Exposure: Never Smokeless Tobacco: Never Alcohol Use Standard Drinks/Week Comments Not Currently 0 (1 standard drink = 0.6 oz pur e alcohol) Depression Answer Date Recorded Patient Health Questionnaire-9 Score 2 10/21/2022 Housing Stability Answer Date Recorded What is your housing situation today? I have miguelart pacheco 12/25/[address] you [...] AM EDT documented as of this encounter Miscellaneous Notes * Telephone Encounter - Skylar Gottlieb RN - 05/17/2024 1:45 PM EDT TC placed to pt with a customer service trainer to inform of message below from PCP advising pt to be seen by [facility] after ED visit on 05/15/2024 for GERD an diarrhea. Pt states that he is currently at [facility] and they are planning on doing a procedure to further explore his GI tract. Pt will call back theoffice if needed and is taking all medication as prescribed. ----- Message from Blanca Quinn sent at 05/17/2024 10:53 AM EDT ----- Pt seen at ED for epigastric pain, diarrhea - please advise him to call his GI office ([facility]) for follow-up appt and that he is taking his PPI as directed. documented in this encounter Plan of Treatment Not on file documented as of this encounter Visit Diagnoses Not on filedocumented in this encounter Additional Health Concerns Assessment Noted Time PHQ-9 Depression Total Score: 2 10/22/19 23 4:00 PM EDT documented as of this encounter Care Teams Note Keeper Relationship Specialty Start Date End Date Blanca Quinn ANP [address] [place] [phone] PCP - General Family Medicine 01/15/19 documented as of this encounter
[2024-05-21 17:14] LABS: Transglutaminase IgA <1.0 U/mL
== END 2024-05-20 11:33 | disposition home or self-care (01) ==
LOC: HO.LAB 11:32
PROVIDERS: PCP Nurse Practitioner Primary Care; Visit Provider Nurse Practitioner Family
DX: K22.10 Ulcer of esophagus without bleeding (principal); K29.50 Unspecified chronic gastritis without bleeding; R10.12 Left upper quadrant pain; K59.01 Slow transit constipation; R11.0 Nausea; R14.0 Abdominal distension (gaseous); K52.9 Noninfective gastroenteritis and colitis, unspecified; K59.1 Functional diarrhea; K58.9 Irritable bowel syndrome, unspecified
CPT/HCPCS: 36415; 86140; 86364; 99212

== ENCOUNTER 2024-05-28 10:35 | Outpatient (REF) | payer OTHER, SELFPAY ==
[2024-06-03 17:38] LABS: Calprotectin, Fecal 122 mcg/g
== END 2024-05-28 10:36 | disposition home or self-care (01) ==
LOC: HO.LNP 10:35
PROVIDERS: Visit Provider Nurse Practitioner Family
DX: R15.9 Full incontinence of feces (principal)
CPT/HCPCS: 83993

== ENCOUNTER 2024-07-06 07:35 | Emergency (ER) | payer OTHER, SELFPAY ==
[2024-07-06 07:39] VITALS: BP 127/78; PULSE 72; RESP 12; TEMP 36.6; O2SAT 100; BMI 25.0
--- NOTE | 2024-07-06 08:10 | ED_ITS ---
HPI - General Adult General Chief complaint: Back Pain/Injury Stated complaint: Back pain Time Seen by Provider: 07/06/24 08:07 Source: patient Mode of arrival: ambulatory Limitations: no limitations History of Present Illness ED Provider: Nancy Paez PA-C HPI narrative: Patient is a 43 year old assigned male at with a history of GERD presenting to the emergency department today with entire back pain. Patient states that on 07/03/2024 he was moving a cabinet up a set of stairs and on 07/04/2024 he began having entire spine pain, shoulder pain, and hip pain. Patient states that he just feels sore in the back from moving the furniture piece. Patient denies any dizziness, lightheadedness, abdominal pain, nausea, vomiting, fever, chills, blurry vision, double vision, loss of vision, chest pain, difficulty breathing, shortness of breath, back pain, night sweats, pain with urination, increased urinary frequency, increased urinary urgency, blood in his urine or stool, syncope or a near syncopal episode, bowel incontinence, bladder incontinence, or any other complaints at this time. Onset (ago): day(s) (2) Relieving factors: none Exacerbating factors: none Associated symptoms: denies other symptoms Treatments prior to arrival: none Related Data Home Medications ?Medication ?Instructions ?Recorded ?Confirmed lidocaine 5 % topical patch 1 patch topical DAILY PRN pain 02/20/23 09/04/23 (Lidoderm) loratadine 10 mg tablet 10 mg PO DAILY PRN allergies 06/05/23 09/04/23 Previous Rx's ?Medication ?Instructions ?Recorded tamsulosin 0.4 mg capsule (Flomax) 0.4 mg PO BEDTIME #30 caps 09/04/23 aluminum hydrox-magnesium carb 254 10 ml PO QID PRN dyspepsia #355 mL 09/23/23 mg-237.5 mg/5 mL oral suspension (Gaviscon Extra Strength) cyclobenzaprine 10 mg tablet 10 mg PO TID PRN muscle pain or 09/23/23 spasm #20 tabs magnesium citrate 296 ml PO ONCE #296 mL 09/24/23 esomeprazole magnesium 40 mg 40 mg PO DAILY #90 caps 05/07/24 capsule,delayed release (Nexium) dicyclomine 20 mg tablet 20 mg PO BID PRN abdominal pain 05/15/24 #10 tabs sucralfate 100 mg/mL oral 10 ml PO QID PRN indigestion #300 05/15/24 suspension (Carafate) mL sennosides 8.6 mg tablet (Natural 17.2 mg (2 x 8.6 mg) PO BEDTIME 06/10/24 Senna Laxative) constipation #60 tabs cyclobenzaprine 10 mg tablet 10 mg PO TID PRN muscle spasm 7 07/06/24 days #21 tabs prednisone 20 mg tablet 20 mg PO DAILY 7 days #7 tabs 07/06/24 Allergies Allergy/AdvReac Type Severity Reaction Status Date / Time No Known Drug Allergies Allergy Unknown Verified 07/06/24 07:43 Review of Systems Constitutional: Constitutional: Reports no additional constitutional complaints, Denies chills, Denies fever(s) and Denies night sweats Eyes: Eyes: Reports no additional eye complaints, Denies blurry vision, Denies change in vision, Denies diplopia, Denies eye discharge, Denies loss of vision and Denies eye pain ENT: Denies dizziness Cardiovascular: Cardiovascular: Reports no additional cardiovascular complaints, Denies chest pain, Denies lightheadedness, Denies Loss of Consciousness and Denies dyspnea Respiratory: Respiratory: Reports no additional respiratory complaints and Denies dyspnea Gastrointestinal: Gastrointestinal: Reports no additional gastrointestinal complaints, Denies abdominal pain, Denies melena, Denies hematochezia, Denies change in bowel habits and Denies change in stool character Genitourinary: Genitourinary: Reports no additional male genitourinary complaints, Denies hematuria, Denies oliguria, Denies difficulty urinating, Denies dysuria, Denies urinary frequency, Denies urinary hesitancy, Denies urinary incontinence and Denies urinary urgency Musculoskeletal: Musculoskeletal: Reports no additional musculoskeletal complaints, Reports back pain, Denies numbness and Denies tingling Comments: bilateral shoulder pain bilateral hip pain Neurologic: Denies dizziness, Denies loss of vision, Denies numbness and Denies tingling Psychiatric: Psychiatric: Reports no additional psychiatric complaints Endocrine: Endocrine: Reports no additional endocrine complaints Hematologic/Lymphatic: Hematologic/Lymphatic: Reports no additional hematologic/lymphatic complaints Allergic/Immunologic: Allergic/Immunologic: Reports no additional allergic/immunologic complaints PMFSH Past Medical History Attestation statement: The following information was validated with the patient. Source: old records reviewed and nursing notes reviewed Medical History Postnasal drip Dysphagia Early satiety Esophagitis Varicose vein of scrotum Hiatal hernia Acid reflux Ulcer Surgical History History of esophagogastroduodenoscopy (EGD) Hx of colonoscopy Family History Family History Unknown No problems noted. Social History Social History Household Members: Spouse and Children Alcohol intake: never Patient Tobacco Use Status: Never used Tobacco Advance Directives: No Advance Directives Information Provided: Yes Do you have a plan to hurt others: No Plan Current occupation: [employer] Physical Exam ED Vital Signs: Vital Signs - 24 hr 07/06/24 07:39 07/06/24 08:34 Temperature 97.8 F 97.8 F Pulse Rate 72 72 Respiratory Rate 12 12 Blood Pressure 127/78 127/78 Pulse Oximetry 100 100 Oxygen Delivery Method Room Air Room Air BMI result Body Mass Index 25.0 Const General: cooperative, no acute distress, alert and awake Nutritional Appearance: well nourished Orientation/consciousness: patient oriented x3 Limitations: no limitations HENMT Head: Yes normal to inspection and Yes atraumatic Ears: hearing grossly normal bilaterally and external ears normal General nose exam: Normal external nose present, no nasal discharge noted and no epistaxis Face and sinus: Yes normal facial exam, No abrasion and No laceration Mouth: Normal oral and palatal mucosa present, no drooling and no muffled voice Eyes General: appearance normal, both eyes and all related structures Periorbital: periorbital findings normal Eyelids: Yes eyelids normal Conjunctivae: conjunctivae normal Pupils: Equal, round and reactive pupils present EOM: EOMs intact bilaterally Neck Neck: Yes normal visual inspection, Yes full ROM and Yes no lymphadenopathy Chest Chest palpation & inspection: normal inspection of the chest Resp Effort & Inspection: normal respiratory effort and able to speak in complete sentences GI Inspection: Yes normal to inspection General: Yes no CVA tenderness Back/Spine/Pelvis Back: no CVA tenderness Cervical Spine: normal cervical lordosis and cervical ROM normal Thoracic/Lumbar Spine: thoraco-lumbar ROM normal Neuro General: patient oriented x3, moves all extremities and CN's II-XI intact bilaterally Cranial nerves: Yes Equal, round and reactive pupils present Cognition (Neuro): normal cognition Extrem General: Yes normal to inspection, Yes full ROM and Yes capillary refill normal Psych Appearance: grossly normal Mental Status: mental status grossly normal Affect: normal affect Attitude: cooperative Thought process: Normal thought process present Thought content: Normal thought content present Insight: Good insight present (Psych) Medications Administered Discontinued Medications Generic Name Dose Route Start Last Admin Trade Name Jose PRN Reason Stop Dose Admin Cyclobenzaprine HCl 5 mg 07/06/24 08:20 07/06/24 08:31 Cyclobenzaprine Hcl 5 Mg Tablet PO 07/06/24 08:21 5 mg ONCE ONE Administration Prednisone 20 mg 07/06/24 08:20 07/06/24 08:31 Prednisone 20 Mg Tablet PO 07/06/24 08:21 20 mg ONCE ONE Administration Medical Decision Making Medical Decision Making MDM Narrative: Patient is a 43 year old assigned male at with a history of GERD presenting to the emergency department today with entire back pain. Patient's physical exam was unremarkable. Patient's clinical presentation is most consistent with muscle spasms / musculoskeletal pain after moving furniture. I explained my physical exam findings to the patient. I answered all questions asked by the patient. I stressed the importance of the patient taking his medication as directed (either prescribed or as the over the counter packaging recommends). I stressed the importance of the patient following up with his primary care provider. I stressed the importance of the patient returning to the emergency department immediately if his symptoms were to worsen or if he were to develop any dizziness, shortness of breath, difficulty breathing, chest pain, blurry vision, loss of vision, nausea, vomiting, abdominal pain, fever, chills, back pain, or any other complaints. Patient verbalized agreement and understanding with this treatment plan and discharge. Differential Diagnosis Differential Diagnoses: The differential diagnosis associated with the presentation includes Back pain MSK pain Muscle spasm Admission/Observation Consideration of admission/observation: Escalation of care including admission/observation considered Patient would have been admitted to the hospital had his clinical presentation warranted hospital admission. Tests considered The following testing was considered but not selected: I considered obtaining imaging of the spine (CT vs. XR) however, the patient's current clincal presentation and mechanism of injury did not warrant it at this time. I discussed this with the patient who verbalized understanding and agreement. Prescription Management I considered prescription management with: Pain Medication (patient prescribed pain medication) Discharge Plan Discharge Clinical Impression: Muscle spasm of back Patient Disposition: Home, Self-Care Instructions: Muscle Spasm (ED) Additional Instructions: Follow up with your primary care provider. Return to the emergency department immediately if your symptoms worsen or if you develop any dizziness, shortness of breath, difficulty breathing, chest pain, blurry vision, loss of vision, nausea, vomiting, abdominal pain, fever, chills, back pain, or any other complaints. Chani?seguimiento?con iglesias m?dico de atenci?n primaria. Acuda inmediatamente al servicio de urgencias si césar s?ntomas empeoran o si presenta falta de aliento, dificultad para respirar, dolor tor?cico, mareos, aturdimiento, dolor de espalda, dolor abdominal, fiebre, escalofr?os o cualquier otro s?ntoma. Please see the information below about our Patient Portal. If you are not yet enrolled in the [facility] Patient Portal, you will receive an enrollment email invitation following your visit to any [facility] setting. You may also self-enroll in the Patient Portal by visiting our website: [email or web address] The following information is required to access the Patient Portal: - Your [facility] Medical Record Number - Your personal home email address (must match what is in your electronic medical record, Registration staff can assist with this) - Name - Date of Capabilities of the Patient Portal: - Message some providers - View upcoming appointments - Access your health summary, medical history, and visit history - View current conditions and allergies - View procedure and lab results - View your medications, including guidelines, side effects, and precautions - Complete pre-appointment questionnaires requested by your provider - Ready summary reports of your office visits and procedures To access the Patient Portal Mobile Chapo, follow these directions: - Search [employer] in the [employer]o Store or [place] Store - Download the Chapo - Search for [facility] - Enter your login/password Portal del paciente Si usted no esta inscrito en el portal de pacientes de [facility], recibira arash invitacion de inscripcion despues de iglesias visita al [facility] o al [facility] via correo electronico. Tambien puede inscribirse voluntariamente en el portal de pacientes visitando nuestra pagina web: [email or web address] La siguiente informacion sera requerida para acceder al portal: - Iglesias bruna de historia medica de [facility] - Iglesias direccion de correo electronico personal - Nombre - Fecha de nacimiento Capacidades: Las siguientes capacidades estan disponibles en el portal de pacientes: - Enviar mensajes a algunos doctores - Verificar proximas citas - Acceso a iglesias historial de rosalee, registro medico e historial de visitas - Javier las condiciones actuales y alergias javier procedimientos y resultados del laboratorio - Javier césar medicamentos, incluyendo las pautas - Efectos secundarios y precauciones - Completar o llenar formularios / cuestionarios de - Citas solicitadas por iglesias doctor - Leer los resumenes de reportes medicos de céasr visitas y procedimientos Dwayne acceder a la aplicacion movil: - Busque [employer] en la [employer] Store o [place] Store - Descargue la aplicacion - [facility] - Ingrese iglesias nombre de usuario / Contrasena Prescriptions: New cyclobenzaprine 10 mg tablet 10 mg PO TID PRN (Reason: muscle spasm) 7 Days Qty: 21 0RF prednisone 20 mg tablet 20 mg PO DAILY 7 Days Qty: 7 0RF No Action sennosides [Natural Senna Laxative] 8.6 mg tablet 17.2 mg PO BEDTIME Qty: 60 3RF Gaviscon Extra Strength 254-237.5 mg/5 mL suspension 10 ml PO QID PRN (Reason: dyspepsia) Qty: 355 0RF cyclobenzaprine 10 mg tablet 10 mg PO TID PRN (Reason: muscle pain or spasm) Qty: 20 0RF sucralfate [Carafate] 100 mg/mL suspension 10 ml PO QID PRN (Reason: indigestion) Qty: 300 0RF Rx Instructions: swish in mouth and swallow; use after food/drink dicyclomine 20 mg tablet 20 mg PO BID PRN (Reason: abdominal pain) Qty: 10 0RF lidocaine [Lidoderm] 5 % adhesive patch,medicated 1 patch topical DAILY PRN (Reason: pain) Rx Instructions: leave on most painful area for up to 12 hrs loratadine 10 mg tablet 10 mg PO DAILY PRN (Reason: allergies) tamsulosin [Flomax] 0.4 mg capsule 0.4 mg PO BEDTIME Qty: 30 4RF esomeprazole magnesium [Nexium] 40 mg capsule,delayed release(DR/EC) 40 mg PO DAILY Qty: 90 1RF magnesium citrate Solution 296 ml PO ONCE Qty: 296 0RF Rx Instructions: Lorena la botella entera la noche anterior a iglesias procedimiento Referrals: Blanca Quinn, [employer] [Primary Care Provider] - Stand Alone Forms: Work/School Release Interventions: ED Discharge Assessment Last Done: 07/06/24 08:34 Discharge Date/Time: 07/06/24 08:35 Print Language: Greenlandic
[2024-07-06] MEDS: Cyclobenzaprine HCl 5 MG TABLET PO (08:31)
[2024-07-06] MEDS: predniSONE 20 MG TABLET PO (08:31)
[2024-07-06 08:34] VITALS: BP 127/78; PULSE 72; RESP 12; TEMP 36.6; O2SAT 100
--- OUTSIDE RECORDS SUMMARY | 2024-07-06 08:38 | XMS_ITS | Clinical Summary ---
Author Organization [employer] Address [address] [place] [address] [address] [place] [address] Care Team Providers Care Special Education Classroom Aide Name Role Phone Blanca Quinn ERYN Primary Care Provider [phone] Allergies No known active allergies Medications * [...] TIMES A DAY NEEDED FOR MUSCLE SPASM 03/26/19 23 Active esomeprazole (NexIUM) [address] capsuleIndicati ons:Gastroesoph ageal reflux disease with esophagitis without hemorrhage TAKE 1 CAPSULE (40 MG) BY MOUTH EVERY DAY AT BEDTIME 90 capsule 04/03/19 23 Active albuterol 108 (90 Base) MCG/ACT inhalerIndicati ons:Mild intermittent reactive airway disease without complication Inhale 2 puffs Every 4-6 hours as needed for wheezing or shortness of breath. 18 g 1 12/09/19 24 Active Acetaminophen 500 MG capsuleIndicati ons:Sore throat Take 2 capsules (1,000 mg) by mouth every 8 (eight) hours if needed for moderate pain, headaches or fever. 100 capsule 12/09/19 24 Active fluticasone (Flonase Allergy Relief) 50 MCG/ACT nasal sprayIndication s:Nasal congestion Administer 2 sprays into each nostril Once per day. Use as needed for nasal congestion 1-2 times/d 48 g 06/30/19 25 Active sodium chloride (Garrard Nasal [place]) 0.65 % nasal sprayIndication s:Nasal congestion 1-2 sprays on each nostril every 2-3 hours as needed for nasal congestion 30 mL 1 06/30/19 25 Active cetirizine (ZyrTEC) 10 MG tabletIndicatio ns:Nasal congestion Take 1 tablet (10 mg) by mouth Once per day. As needed for allergies/cristy al congestion 90 tablet 06/30/19 25 025 Active ondansetron (Zofran) 4 MG/5ML solution Take 5 mL (4 mg) by mouth if needed in the morning, at noon, and at bedtime for nausea or vomiting. 50 mL 04/25/19 24 025 Discontinued(T herapy completed) sodium chloride (Garrard Nasal [place]) 0.65 % nasal sprayIndication s:Nasal congestion 1-2 sprays on each nostril every 2-3 hours as needed for nasal congestion 30 mL 1 12/09/19 24 025 Discontinued(R eorder (will not trigger notification to Pharmacy)) fluticasone (Flonase Allergy Relief) 50 MCG/ACT nasal sprayIndication s:Nasal congestion Administer 2 sprays into each nostril Once per day. Use as needed for nasal congestion 1-2 times/d 48 g 04/05/19 25 025 Discontinued(R eorder (will not trigger notification to Pharmacy)) loratadine (Claritin) 10 MG tabletIndicatio ns:Nasal congestion,Mild intermittent reactive airway disease without complication Take 1 tablet (10 mg) by mouth Once per day. 90 tablet 04/05/19 25 025 Discontinued(T herapy completed) pseudoephedrine ER (Sudafed-12 Hour) 120 MG 12 hr tablet Take 1 tablet (120 mg) by mouth every 12 (twelve) hours if needed for congestion. Do not crush, chew, or split. 20 tablet 04/05/19 25 025 Discontinued(T herapy completed) benzonatate (Tessalon Perles) 100 MG capsuleIndicati ons:Viral URI with cough Take 1 capsule (100 mg) by mouth if needed in the morning, at noon, and at bedtime for cough for up to 7 days. Do not crush or chew. 20 capsule 06/06/19 25 025 Active Problems Problem Noted Date Diagnosed Date MDD (major depressive disorder), single episode, moderate 09/17/2022 Assessment & Plan (10/21/2022 4:44 PM EDT): Presented with irritability rather than anhedonia. Consider PTSD with hot dip galvanizer trauma, persistant memories (?flashbacks) but no hyperarousal. [...] irritability rather than anhedonia. Consider PTSD with hot dip galvanizer trauma, persistant memories (?flashbacks) but no hyperarousal. [...] Encounters Date Type Department Care Team Description 06/30/2024 Telephone [facility] [address] [place] [phone] Blanca Quinn ANP Appointment Request 06/29/2024 1:15 PM EDT Office Visit [facility] [address] [place] [address] Blanca Quinn ANP Gastroesophageal reflux disease with esophagitis without hemorrhage (Primary Dx); Depression, unspecified depression type; Dietary counseling; Exercise counseling; Lipid screening; Elevated PSA, less than 10 ng/ml; Atypical chest pain; Palpitations; Nasal congestion; Whole body pain; Need for hepatitis B screening test; Need for hepatitis C screening test 06/29/2024 Travel 06/24/2024 Telephone [facility] [address] [place] [address] Blanca Quinn ANP chartprep 06/05/2024 11:00 AM EDT Office Visit [facility] [address] [place] [phone] Lc Alvarez MD Viral URI with cough (Primary Dx) 05/20/2024 Orders Only GENERIC EXTERNAL DATA DEPARTMENT Provider, Generic External Data 05/17/2024 Telephone [facility] [address] [place] [address] Skylar Gottlieb RN GI F/U 05/15/2024 Orders [...] Sign Reading Time Taken Comments Blood Pressure 126/88 06/29/2024 1:13 PM EDT Pulse 84 06/29/2024 1:13 PM EDT Temperature 37.1 ??C (98.7 ??F) 06/29/2024 1:13 PM ED T Respiratory Rate 20 06/29/2024 1:13 PM EDT Oxygen Saturation 98% 06/29/2024 1:13 PM EDT Inhaled Oxygen Concentration - - Weight 81.2 kg (179 lb) 06/29/2024 1:13 PM EDT Height 180.3 cm (5' 11 ) 04/05/2024 12:12 PM EST Body Mass Index 24.97 04/05/2024 12:12 PM EST Plan of Treatment Health Maintenance Due Date Last Done Comments CT Colonography 1978 Colonoscopy 1978 Colorectal Cancer Screening 1978 FIT DNA/Cologuard 1978 FIT 1978 FOBT 1978 HIV Screening 1978 Lipid Panel 1978 Sigmoidoscopy 1978 Family Planning (PISQ) 1993 Hepatitis C Screening 1996 Hepatitis B Vaccines (1 of 3 - 19+ 3-dose series) 1997 Depression Screening 10/22/2023 10/21/2022, 10/21/2022 Influenza Vaccine (#1) 2023 SDOH Screening 11/29/2023 11/28/2022 Alcohol/Substance Use Screening 06/29/2025 06/29/2024 COVID-19 Vaccine (3 - 2023-2 5 season) 2025 08/25/2020, 07/10/2020 Postponed from 11/09/2023 (Patient Refused) DTaP/Tdap/Td Vaccines (1 - Tdap) 06/29/2025 Postponed from 11/27 (Patient Refused) Pneumococcal Vaccine: Pediatrics (0 to 5 Years) and At-Risk Patients (6 to 49) Years) (1 of 2 - PCV) 06/29/2025 Postponed from (Patient Refused) Tobacco Screening 06/29/2025 06/29/2024 Zoster Vaccines (1 of 2) 2028 RSV [...] Procedure Name Priority Date/Time Associated Diagnosis Comments ECG 12-LEAD Routine 06/29/2024 3:06 PM EDT Atypical chest pain Palpitations POCT INFLUENZA A Routine 06/29/2024 1:55 PM EDT Nasal congestion POCT INFLUENZA B Routine 06/29/2024 1:54 PM EDT Nasal congestion POCT RAPID COVID ANTIGEN Routine 025 1:53 PM EDT Nasal congestion POCT INFLUENZA A (ID NOW RAPID MOLECULAR) Routine 06/05/2024 11:31 AM EDT Viral URI with cough POCT RAPID COVID ANTIGEN Routine 025 11:31 AM EDT Viral URI with cough POCT INFLUENZA B (ID NOW RAPID MOLECULAR) Routine 06/05/2024 11:30 AM EDT Viral URI with cough TISSUE TRANSGLUTAMINASE AB, IGA Routine 05/20/2024 12:52 PM EDT C-REACTIVE PROTEIN Routine 05/20/2024 12 :52 PM EDT LIPASE Routine 05/15/2024 3:11 PM EST MAGNESIUM Routine 05/15/2024 3:11 PM EST COMPREHENSIVE METABOLIC PANEL Routine 05/15/2024 3:11 PM EST CBC WITH AUTO DIFFERENTIAL Routine 05/15/2024 3:11 PM EST from Last 3 Months Results * ECG 12 lead (06/29/2024 3:06 PM EDT) Narrative Blacna Quinn ANP - 06/29/2024 3:06 PM EDT HR 77, QRS 88, QT/QTc 382/411, normal axis, no ischemic changes us Blanca Quinn ANP ECG ORDERABLES Final Result * POCT Influenza A manually resulted (06/29/2024 1:55 PM EDT) Rapid Influenza A Ag Negative Negative, Indeterminate QC Media Lot # [id number] Lot# Expiration Date Swab Nasopharyngeal structure / Unknown 06/29/2024 1:55 PM EDT us Blanca Quinn ANP POINT OF CARE TEST ENTER/EDIT OR DERABLES Final Result * POCT Influenza B manually resulted (06/29/2024 1:54 PM EDT) Rapid Influenza B Ag Negative Negative, Indeterminate QC Media Lot # [id number] Lot# Expiration Date Swab 06/29/2024 1:54 PM EDT us Blanca Quinn ANP POINT OF CARE TEST ENTER/EDIT OR DERABLES Final Result * POCT Rapid COVID Ag (06/29/2024 1:53 PM EDT) Only the most recent of2 resultswithin the time period is included. Rapid COVID Ag Negative QC Media Lot # [id number] Lot# Expiration Date Swab 06/29/2024 1:53 PM EDT Blanca CERNA POINT OF CARE TEST ENTER/EDIT OR DERABLES Final Result * POCT Rapid Influenza A [place] ID NOW (06/05/2024 11:31 AM EDT) Influenza A Negative Negative, Indeterminate [facility] QC Media Lot # [id number] [facility] Lot# Expiration Date [facility] Swab 06/05/2024 11:3 1 AM EDT Lc Alvarez MD POINT OF CARE TEST ENTER/EDIT OR DERABLES Final Result Performing Organization Address [facility] Co de Phone Number [facility] [address] [place] [phone] * POCT Rapid Influenza B [place] ID NOW (06/05/2024 11:30 AM EDT) Pathologist [facility] Influenza B Negative Negative, Indeterminate [facility] QC Media Lot # [id number] [facility] Lot# Expiration Date [facility] Swab 06/05/2024 11:3 0 AM EDT Lc Alvarez MD POINT OF CARE TEST ENTER/EDIT OR DERABLES Final Result Performing Organization Address [facility] Co de Phone Number [facility] [address] [place] [phone] * Tissue Transglutaminase Antibody, IgA (05/20/2024 12:52 PM EDT) Pathologist [facility] Transglutaminase IgA <1.0 U/mL [facility] Comment:Value Interpretation ----- <15.0 Antibody not detected> or = 15.0 Antibody detectedTHIS TEST WAS PERFORMED AT:[employer] [place] [id number] PEREZ MD 05/20/2024 12:5 2 PM EDT 05/20/2024 12:52 PM EDT Generic External Data Provider LAB BLOOD ORDERAB LES Final Result Performing Organization Address [facility] Co de Phone Number [facility] [address] [place] [phone] * (ABNORMAL) C-reactive Protein (05/20/2024 12:52 PM EDT) [facility] C Reactive Protein 0.92(H) < or = 0.50 mg/dL [facility] 05/20/2024 12:5 2 PM EDT 05/20/2024 12:52 PM EDT Generic External Data Provider LAB BLOOD ORDERAB LES Final Result Performing Organization Address [facility] de Phone Number [facility] [address] [place] [phone] * (ABNORMAL) CBC auto differential (05/15/2024 3:11 PM EST) White Blood Count 8.8 4.8 - 10.8 X10*3/uL [facility] Red Blood Count 5.28 4.60 - 5.80 X10*6/uL [facility] Hemoglobin 14.7 14.0 - 18.0 g/dl [facility] Hematocrit 42.9 42.0 - 52.0 % [facility] Mean Corpuscular Volume 81.3 80.0 - 98.0 fL [facility] Mean Corpuscular Hemoglobin 27.8 27.0 - 33.0 pg [facility] Mean Corpuscular HGB Conc 34.3 31.0 - 36.0 g/dl [facility] Red Cell Distribution Width 13.5 11.0 - 16.0 % [facility] Platelet Count 223 160 - 400 X10*3/uL [facility] Mean Platelet Volume 10.3 9.4 - 12.4 fL [facility] Neutrophils Percent Auto 68.1 45 - 73 % [facility] Imm Gran Pct Auto 0.2 0.0 - 0.4 % [facility] Lymphocytes Percent Auto 19.2(L) 20 - 40 % [facility] Monocytes Percent Auto 9.3 2 - 11 % [facility] Eosinophils Percent Auto 2.5 0 - 4 % [facility] Basophils Percent Auto 0.7 0 - 2 % [facility] NRBC Pct Auto 0.0 0.0 - 0.2 /100WBC [facility] Neutrophils Absolute Auto 6.0 2.0 - 8.3 x10*3/uL [facility] Imm Gran Abs Auto 0.02 0.00 - 0.03 X10*3/uL [facility] Lymphocytes Absolute Auto 1.7 1.2 - 4.9 X10*3/uL [facility] Monocytes Absolute Auto 0.8 0.1 - 1.2 X10*3/uL [facility] Eosinophils Absolute Auto 0.2 0.0 - 0.4 X10*3/uL [facility] Basophils Absolute Auto 0.1 0.0 - 0.2 X10*3/uL [facility] NRBC Abs Auto 0.000 0.0 - 0.012 X10*3/uL [facility] 05/15/2024 3:11 PM EST 05/15/2024 3:22 PM EST us Generic External Data Provider LAB BLOOD ORDERAB LES Final Result [facility] [address] [place] [address] [phone] * Magnesium (05/15/2024 3:11 PM EST) Magnesium 2.0 1.6 - 2.6 mg/dL [facility] 05/15/2024 3:11 PM EST 05/15/2024 3:22 PM EST us Generic External Data Provider LAB BLOOD ORDERAB LES Final Result Performing Organization Address City/[facility]/ZIP Co de Phone Number [facility] [address] [place] [phone] * Lipase (05/15/2024 3:11 PM EST) [facility] Lipase 20 8 - 78 U/L [facility] 05/15/2024 3:11 PM EST 05/15/2024 3:22 PM EST Generic External Data Provider LAB BLOOD ORDERAB LES Final Result Performing Organization Address City/[facility]/ZIP Co de Phone Number [facility] [address] [place] [phone] * (ABNORMAL) Comprehensive Metabolic Panel (05/15/2024 3:11 PM EST) [facility] Sodium 141 135 - 145 mmol/L [facility] Potassium 4.1 3.3 - 5.1 mmol/L [facility] Chloride 107 96 - 108 mmol/L [facility] Carbon Dioxide 27 22 - 29 mmol/L [facility] Anion Gap 11(L) 12 - 20 [facility] Urea Nitrogen (BUN) 13 9 - 16 mg/dL [facility] Creatinine, Serum 0.96 0.5 - 1.4 mg/dL [facility] Creatinine Clr Calc Pharmacy 106.6 [facility] Comment:eGFR (calculated fro m the MDRD study equation) and eCrCl(calculated from the Cockcroft-Gault equation) are based ondifferent parameters and may not yield comparable results.If eCrCl result is absurd, please check patient'sheight/weight. Estimated Glomerular Filt Rate >60 [facility] Comment:Chronic Kidney Disea se: Estimated GFR < 60 mL/min/1.53j5[place] Kidney Disease: Estimated GFR < 15 mL/min/1.73m2 Glucose 75 60 - 115 mg/dL [facility] Calcium 9.0 8.4 - 10.2 mg/dL [facility] Bilirubin, Total 0.3 0.0 - 1.0 mg/dL [facility] Aspartate Amino Transferase 25 5 - 37 U/L [facility] Alanine Aminotransferase 41(H) 0 - 40 U/L [facility] Total Protein 7.8 6.5 - 8.0 g/dL [facility] Albumin Level 4.0 3.5 - 5.0 g/dL [facility] Alkaline Phosphatase 61 39 - 117 U/L [facility] 05/15/2024 3:11 PM EST 05/15/2024 3:22 PM EST us Generic External Data Provider LAB BLOOD ORDERAB LES Final Result Performing Organization Address City/State/[facility] Co de Phone Number [facility] [address] [place] [address] [phone] from Last 3 Months Insurance [facility] Care Teams Special Education Classroom Aide Relationship Specialty Start Date End Date Blanca Quinn ANP [address] [place] [phone] PCP - General Family Medicine 01/15/19
== END 2024-07-06 08:35 | disposition home or self-care (01) ==
PROVIDERS: Emergency Provider Emergency Medicine; PCP Nurse Practitioner Primary Care
DX: M62.830 Muscle spasm of back (principal); M54.9 Dorsalgia, unspecified
CPT/HCPCS: 99283; 99284

== ENCOUNTER 2024-07-30 08:26 | Outpatient (REF) | payer OTHER, SELFPAY ==
--- NOTE | ~2024-07-30 | FL_ITS ---
EXAMINATION: XR FLUOROSCOPY UPPER GI SERIES CLINICAL INFORMATION: Gastroesophageal reflux disease. COMPARISON: None TECHNIQUE: Fluoroscopic air contrast upper GI examination was performed utilizing standard techniques with thin and thick barium and effervescent granules. Numerous spot images were obtained. Several fluoroscopic image hold cine sequences were also obtained. FINDINGS: UPPER GI SERIES: Lateral cine images of the oropharynx and hypopharynx demonstrate normal swallow mechanism with normal epiglottic inversion and soft palate elevation. No laryngeal penetration, glottic or subglottic aspiration identified. No nasopharyngeal reflux present. Hypopharyngeal structures appear normal without evidence of mass or diverticulum. There was no significant cricopharyngeal achalasia. Dual and single contrast images of the esophagus demonstrate normal caliber, contour, and mucosal pattern. No evidence of stricture, mass, or ulcerations identified. Esophageal peristalsis was normal. Small to moderate-sized type I hiatus hernia identified. Normal GE junction. There is episodic gastroesophageal reflux identified to the level of the thoracic inlet. Dual contrast and single contrast images of the stomach demonstrated normal contour and mucosal pattern without evidence of mass, ulceration, or other abnormality. Contrast freely passed into the gastric antrum and duodenal bulb without delay. Single and air-contrast images of the duodenal bulb demonstrate no abnormality. The duodenal sweep has a normal appearance, course, and mucosal fold appearance. FLUOROSCOPY TIME: 1 minute, 45 seconds Number of Spot Images:9 Number of cines obtained: 11 DOSE AREA PRODUCT: 2130 uGy-m2 (microgray-meter squared) FL/FL upper GI w air w Ba Swallow IMPRESSION: 1. Small to moderate-sized type I hiatus hernia. 2. Episodic gastroesophageal reflux to the level of the thoracic inlet. 3. Normal-appearing stomach, duodenal bulb, and duodenum. Electronically signed by: Adrian Koenig MD 07/30/2024 10:30 AM EDT
--- OUTSIDE RECORDS SUMMARY | 2024-07-30 08:32 | XMS_ITS | Clinical Summary ---
Author Organization [employer] Address [address] [place] [address] [address] [place] [address] Care Team Providers Care Classified Advertising Supervisor Name Role Phone Blanca Quinn ERYN Primary Care Provider [phone] Allergies No known active allergies Medications * [...] 3 Active esomeprazole (NexIUM) [address] capsuleIndication s:Gastroesophagea l reflux disease with esophagitis without hemorrhage TAKE 1 CAPSULE (40 MG) BY MOUTH EVERY DAY AT BEDTIME 90 capsule 3 Active albuterol 108 (90 Base) MCG/ACT inhalerIndication s:Mild intermittent reactive airway disease without complication Inhale 2 puffs Every 4-6 hours as needed for wheezing or shortness of breath. 18 g 1 4 Active Acetaminophen 500 MG capsuleIndication s:Sore throat Take 2 capsules (1,000 mg) by mouth every 8 (eight) hours if needed for moderate pain, headaches or fever. 100 capsule 4 Active fluticasone (Flonase Allergy Relief) 50 MCG/ACT nasal sprayIndications: Nasal congestion Administer 2 sprays into each nostril Once per day. Use as needed for nasal congestion 1-2 times/d 48 g 5 Active sodium chloride ([place] Nasal [place]) 0.65 % nasal sprayIndications: Nasal congestion 1-2 sprays on each nostril every 2-3 hours as needed for nasal congestion 30 mL 1 5 Active cetirizine (ZyrTEC) 10 MG tabletIndications :Nasal congestion Take 1 tablet (10 mg) by mouth Once per day. As needed for allergies/nasa l congestion 90 tablet 5 09/28/19 25 Active Active Problems Problem Noted Date Diagnosed Date MDD (major depressive disorder), single episode, moderate 09/17/2022 Assessment & Plan (10/21/2022 4:44 PM EDT): Presented with irritability rather than anhedonia. Consider PTSD with early breastfeeding care specialist trauma, persistant memories (?flashbacks) but no hyperarousal. [...] irritability rather than anhedonia. Consider PTSD with early breastfeeding care specialist trauma, persistant memories (?flashbacks) but no hyperarousal. [...] Encounters Date Type Department Care Team Description 07/12/2024 Telephone [facility] MEDICINE [address] [place] [id number] Blanca Quinn ANP [place] recall 06/30/2024 Telephone [facility] [place] [address] Blanca Quinn ANP Appointment Request 06/29/2024 1:15 PM EDT Office Visit [facility] [place] [address] Blanca Quinn ANP Gastroesophageal reflux disease with esophagitis without hemorrhage (Primary Dx); Depression, unspecified depression type; Dietary counseling; Exercise counseling; Lipid screening; Elevated PSA, less than 10 ng/ml; Atypical chest pain; Palpitations; Nasal congestion; Whole body pain; Need for hepatitis B screening test; Need for hepatitis C screening test 06/29/2024 Travel 06/24/2024 Telephone [facility] [place] [address] Blanca Quinn ANP chartprep 06/05/2024 11:00 AM EDT Office Visit [facility] [place] [address] Lc Alvarez MD Viral URI with cough (Primary Dx) 05/20/2024 Orders Only GENERIC EXTERNAL DATA DEPARTMENT Provider, Generic External Data 05/17/2024 Telephone [facility] [place] [address] Skylar Gottlieb RN GI F/U 05/15/2024 Orders [...] 04/05/2024 12:12 PM EST Plan of Treatment Upcoming Encounters Date Type Department Care Team (Late st Contact Info) Description 10/13/2024 3:45 PM EDT Office Visit [facility] MEDICINE [address] [place] [address] Blanca Quinn ANP [address] [place] [address] 12/07/2024 3:00 PM EDT Office Visit [facility] OPTOMETRY [address] [place] [address] Rakel Bliss, OD [address] [place] [address] Health Maintenance Due Date Last Done Comments CT Colonography 1978 Colonoscopy 1978 Colorectal Cancer Screening 1978 FIT DNA/Cologuard 1978 FIT 1978 FOBT 1978 HIV Screening 1978 Lipid Panel 1978 Sigmoidoscopy 1978 Disability Screening 1978 Family Planning (PISQ) 1993 Hepatitis C [...] patient's age to complete this topic Meningococcal B Vaccine Aged Out No l onger eligible based on patient's age to complete [...] 12 lead (06/29/2024 3:06 PM EDT) Narrative Blanca Quinn ANP - 06/29/2024 3:06 PM EDT HR 77, QRS 88, QT/QTc 382/411, normal axis, no ischemic changes [facility] ANP ECG ORDERABLES Final Result * POCT Influenza A manually resulted (06/29/2024 1:55 PM EDT) [facility] Rapid Influenza A Ag Negative Negative, Indeterminate QC Media Lot # [id number] Lot# Expiration Date Swab Nasopharyngeal structure / Unknown 06/29/2024 1:55 PM EDT [facility] ANP POINT OF CARE TEST ENTER/EDIT OR DERABLES Final Result * POCT Influenza B manually resulted (06/29/2024 1:54 PM EDT) [facility] Rapid Influenza B Ag Negative Negative, Indeterminate QC Media Lot # [id number] Lot# Expiration Date Swab 06/29/2024 1:54 PM EDT [facility] ANP POINT OF CARE TEST ENTER/EDIT OR DERABLES Final Result * POCT Rapid COVID Ag (06/29/2024 1:53 PM EDT) Only the most recent of2 resultswithin the time period is included. [facility] Rapid COVID Ag Negative QC Media Lot # [id number] Lot# Expiration Date Swab 06/29/2024 1:53 PM EDT [facility] ANP POINT OF CARE TEST ENTER/EDIT OR DERABLES Final Result * POCT Rapid Influenza A [place] ID NOW (06/05/2024 11:31 AM EDT) [facility] Influenza A Negative Negative, Indeterminate [facility] QC Media Lot # [id number] [facility] Lot# Expiration Date [facility] Swab 06/05/2024 11:3 1 AM EDT Lc Alvarez MD POINT OF CARE TEST ENTER/EDIT OR DERABLES Final Result Performing Organization Address [facility] de Phone Number [facility] [address] [place] [phone] * POCT Rapid Influenza B [place] ID NOW (06/05/2024 11:30 AM EDT) Influenza B Negative Negative, Indeterminate [facility] QC Media Lot # [id number] [facility] Lot# Expiration Date [facility] Swab 06/05/2024 11:3 0 AM EDT Lc Alvarez MD POINT OF CARE TEST ENTER/EDIT OR DERABLES Final Result Performing Organization Address [facility] Number [facility] [address] [place] [phone] * Tissue Transglutaminase Antibody, IgA (05/20/2024 12:52 PM EDT) Transglutaminase IgA <1.0 U/mL [facility] Comment:Value Interpretation ----- <15.0 Antibody not detected> or = 15.0 Antibody detectedTHIS TEST WAS PERFORMED AT:[employer] [address] [id number] PEREZ MD 05/20/2024 12:5 2 PM EDT 05/20/2024 12:52 PM EDT Generic External Data Provider LAB BLOOD ORDERAB LES Final Result Performing Organization Address [facility] Co de Phone Number [facility] [address] [place] [phone] * (ABNORMAL) C-reactive Protein (05/20/2024 12:52 PM EDT) C Reactive Protein 0.92(H) < or = 0.50 mg/dL [facility] 05/20/2024 12:5 2 PM EDT 05/20/2024 12:52 PM EDT us Generic External Data Provider LAB BLOOD ORDERAB LES Final Result [facility] [address] [place] [phone] * (ABNORMAL) CBC auto differential (05/15/2024 3:11 PM EST) White Blood Count 8.8 4.8 - 10.8 X10*3/uL [facility] Red Blood Count 5.28 4.60 - 5.80 X10*6/uL [facility] Hemoglobin 14.7 14.0 - 18.0 g/dl [facility] Hematocrit 42.9 42.0 - 52.0 % [facility] Mean Corpuscular Volume 81.3 80.0 - 98.0 fL [facility] Mean Corpuscular Hemoglobin 27.8 27.0 - 33.0 pg [facility] Mean Corpuscular HGB Conc 34.3 31.0 - 36.0 g/dl [facility] Red Cell Distribution Width 13.5 11.0 - 16.0 % [facility] Platelet Count 223 160 - 400 X10*3/uL [facility] Mean Platelet Volume 10.3 9.4 - 12.4 fL [facility] Neutrophils Percent Auto 68.1 45 - 73 % [facility] Imm Gran Pct Auto 0.2 0.0 - 0.4 % [facility] Lymphocytes Percent Auto 19.2(L) 20 - 40 % [facility] Monocytes Percent Auto 9.3 2 - 11 % [facility] Eosinophils Percent Auto 2.5 0 - 4 % [facility] Basophils Percent Auto 0.7 0 - 2 % [facility] NRBC Pct Auto 0.0 0.0 - 0.2 /100WBC [facility] Neutrophils Absolute Auto 6.0 2.0 - 8.3 x10*3/uL [facility] Imm Gran Abs Auto 0.02 0.00 - 0.03 X10*3/uL [facility] Lymphocytes Absolute Auto 1.7 1.2 - 4.9 X10*3/uL [facility] Monocytes Absolute Auto 0.8 0.1 - 1.2 X10*3/uL [facility] Eosinophils Absolute Auto 0.2 0.0 - 0.4 X10*3/uL [facility] Basophils Absolute Auto 0.1 0.0 - 0.2 X10*3/uL [facility] NRBC Abs Auto 0.000 0.0 - 0.012 X10*3/uL [facility] 05/15/2024 3:11 PM EST 05/15/2024 3:22 PM EST Generic External Data Provider LAB BLOOD ORDERAB LES Final Result Performing Organization Address City/[facility]/ZIP Co de Phone Number [facility] [address] [place] [phone] * Magnesium (05/15/2024 3:11 PM EST) Magnesium 2.0 1.6 - 2.6 mg/dL [facility] 05/15/2024 3:11 PM EST 05/15/2024 3:22 PM EST Generic External Data Provider LAB BLOOD ORDERAB LES Final Result Performing Organization Address [facility] Co de Phone Number [facility] [address] [place] [phone] * Lipase (05/15/2024 3:11 PM EST) Lipase 20 8 - 78 U/L [facility] 05/15/2024 3:11 PM EST 05/15/2024 3:22 PM EST us Generic External Data Provider LAB BLOOD ORDERAB LES Final Result [facility] [address] [place], [place] [phone] * (ABNORMAL) Comprehensive Metabolic Panel (05/15/2024 3:11 PM EST) Sodium 141 135 - 145 mmol/L [facility] Potassium 4.1 3.3 - 5.1 mmol/L [facility] Chloride 107 96 - 108 mmol/L [facility] Carbon Dioxide 27 22 - 29 mmol/L [facility] Anion Gap 11(L) 12 - 20 [facility] Urea Nitrogen (BUN) 13 9 - 16 mg/dL [facility] Creatinine, Serum 0.96 0.5 - 1.4 mg/dL [facility] Creatinine Clr Calc Pharmacy 106.6 [facility] Comment:eGFR (calculated fro m the MDRD study equation) and eCrCl(calculated from the Cockcroft-Gault equation) are based ondifferent parameters and may not yield comparable results.If eCrCl result is absurd, please check patient'sheight/weight. Estimated Glomerular Filt Rate >60 [facility] Comment:Chronic Kidney Disea se: Estimated GFR < 60 mL/min/1.45f2Kpvyyf Kidney Disease: Estimated GFR < 15 mL/min/1.73m2 Glucose 75 60 - 115 mg/dL [facility] Calcium 9.0 8.4 - 10.2 mg/dL [facility] Bilirubin, Total 0.3 0.0 - 1.0 mg/dL [facility] Aspartate Amino Transferase 25 5 - 37 U/L [facility] Alanine Aminotransferase 41(H) 0 - 40 U/L [facility] Total Protein 7.8 6.5 - 8.0 g/dL [facility] Albumin Level 4.0 3.5 - 5.0 g/dL [facility] Alkaline Phosphatase 61 39 - 117 U/L [facility] 05/15/2024 3:11 PM EST 05/15/2024 3:22 PM EST us Generic External Data Provider LAB BLOOD ORDERAB LES Final Result [facility] [address] [place] [phone] [phone] from Last 3 Months Insurance HS [facility] Care Teams Classified Advertising Supervisor Relationship Specialty Start Date End Date Blanca Quinn ANP [address] [place] [address] PCP - General Family Medicine 01/15/19
== END 2024-07-30 08:27 | disposition home or self-care (01) ==
LOC: HO.XRAY 08:26
PROVIDERS: PCP Nurse Practitioner Primary Care; Visit Provider Nurse Practitioner Family
DX: K21.9 Gastro-esophageal reflux disease without esophagitis (principal)
CPT/HCPCS: 74246

== ENCOUNTER → 2024-07-30 08:28 | Outpatient (BNV) | payer OTHER, SELFPAY | PROVIDERS: PCP Nurse Practitioner Primary Care; Visit Provider Radiology Diagnostic Radiology | DX: K21.9 Gastro-esophageal reflux disease without esophagitis (principal) | CPT/HCPCS: 74246 ==

== ENCOUNTER 2024-11-11 13:40 | Outpatient (AMB) | payer OTHER, SELFPAY ==
[2024-11-11 13:43] VITALS: BP 118/70; PULSE 75; BMI 24.9
--- NOTE | 2024-11-11 13:43 | A.OFFVIS_ITS ---
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 Intake Note: New with ekg dx chest pain [employer] Supervisor Required: Yes [employer] Supervisor Services: [employer]achute [employer] Supervisor Present [employer] Supervisor Name: liza Thomas Allergies No Known Drug Allergies Allergy (Verified 07/06/24 07:43) Unknown Medication List - Last Reconciled 11/11/24 by Floyd Fagan MD aluminum hydrox-magnesium carb 254-237.5 mg/5 mL (Gaviscon Extra Strength) 10 mL PO QID PRN cyclobenzaprine 10 mg PO TID PRN cyclobenzaprine 10 mg PO TID PRN 7 days dicyclomine 20 mg PO BID PRN esomeprazole magnesium (Nexium) 40 mg PO DAILY lidocaine 5% (Lidoderm) 1 patch topical DAILY PRN loratadine 10 mg PO DAILY PRN magnesium citrate 296 mL PO ONCE prednisone 20 mg PO DAILY 7 days sennosides (Natural Senna Laxative) 17.2 mg (2 x 8.6 mg) PO BEDTIME sucralfate (Carafate) 10 mL PO QID PRN tamsulosin (Flomax) 0.4 mg PO BEDTIME HPI Comments Details: Gurmeet was referred here for symptoms of shortness of breath and chest tightness. History was obtained with the help of a certified patient carrier over the telephone. Patient with no significant past cardiovascular risk factors including no hypertension, diabetes no hyperlipidemia in his smoking. Patient over the recent past has been having increasing symptoms of chest tightness and shortness of breath. He said usually gets his symptoms when he gets anxious and nervous he gets a cold feeling in his precordial area with shortness of breath and that would get chest tightness sometimes. He said at recently going to work he had similar symptoms and at to take the day off. He said he has been getting Zetia episodes for unclear reason. He denies any clear exertional chest pain or shortness of breath. Denies any prolonged palpitation, irregular heartbeat, lightheadedness, syncope. No heart failure symptoms of orthopnea, PND, leg edema. [facility] Medical History Postnasal drip Dysphagia Early satiety Esophagitis Varicose vein of scrotum Hiatal hernia Acid reflux Ulcer Surgical History History of esophagogastroduodenoscopy (EGD) Hx of colonoscopy Family History Unknown No problems noted. Social History Household Members: Spouse and Children Alcohol intake: never Patient Tobacco Use Status: Never used Tobacco Current occupation: [employer] Const Denies chills, Denies daytime sleepiness, Denies fatigue, Denies fever(s), Denies frequent falls, Denies poor appetite, Denies snoring, Denies stops breathing during sleep, Denies weakness, Denies weight gain and Denies weight loss Eyes Denies loss of vision ENT Denies dizziness and Denies hearing loss Card Reports chest pain, Denies claudication, Denies leg edema, Denies lightheadedness, Denies palpitations, Denies dyspnea, Denies dyspnea on exertion and Denies orthopnea Resp Denies cough, Denies excessive phlegm production, Denies dyspnea, Denies dyspnea on exertion, Denies snoring and Denies wheezing GI Denies abdominal pain, Denies hematochezia, Denies change in bowel habits, Denies nausea and Denies vomiting Denies dysuria and Denies urinary frequency Musc Denies arthralgias, Denies muscle weakness and Denies numbness Skin/Breast Denies nail changes and Denies rash Neuro Denies Abnormal speech present, Denies dizziness, Denies frequent falls, Denies loss of vision, Denies memory loss, Denies numbness and Denies weakness Psych Denies depression and Denies memory loss Endo Denies fatigue and Denies palpitations Homero/Lymph Reports easy bruising and Reports other (anemia) Aller/Immun Denies wheezing Physical Exam Vital Signs: Last Vital Signs Pulse 75 11/11/24 13:43 BP 118/70 11/11/24 13:43 BMI result Body Mass Index 24.9 Const General: cooperative, comfortable, no acute distress, well developed, alert, awake, Physically active and well groomed Nutritional Appearance: well nourished Orientation/consciousness: patient oriented x3 Limitations: no limitations HEENT Head: Yes normocephalic and Yes atraumatic Neck Neck: Yes trachea midline, Yes supple and Yes no JVD Resp Effort & Inspection: normal respiratory effort Auscultation: clear to auscultation bilaterally Cardio Jugular venous distension: no JVD Palpation: normal PMI Rate: regular rate Rhythm: regular rhythm Heart sounds: S1 normal heart sound present, S2 normal heart sound present, no click, no gallops, no murmurs and no rubs GI Auscultation: normal bowel sounds Skin General skin exam: no rashes or lesions noted Neuro General: patient oriented x3 and no focal motor deficits Speech: No Abnormal speech present Extrem General: Yes no clubbing, cyanosis or edema Psych Appearance: grossly normal Office Procedures EKG Details: EKG shows normal sinus rhythm with normal EKG. [id number], Complete Assessment & Plan Assessment & Plan (1) SOB (shortness of breath): Code(s): R06.02 - Shortness of breath Category: Medical Plan: Patient was symptoms of shortness of breath and chest tightness setting of anxiety and nervousness. This could represent anxiety/panic attack. He does have family history of coronary disease. Would suggest him to undergo a regular treadmill exercise stress test given his normal EKGs as well as an echocardiogram to evaluate for any structural heart abnormalities. These tests will be performed in near future. If these tests are within normal limits, pursue other avenues for assessment including symptoms related anxiety/panic. This was discussed with him. No pharmacotherapy he has been recommended at this point in time. This was discussed with him. Stress mitigation strategies were discussed. Will follow up in the clinic if need be. Thank you for allowing me to partake in his care Orders: Orders CA echo transthoracic complete Today R06.02 - Shortness of breath CA stress test Today R06.02 - Shortness of breath Coding Level of Care Code New Pt Level 4 (87222) Complex EM visit Add On G2211 Diagnoses SOB (shortness of breath) R06.02 CPT Codes EKG - CPT: 20071-[id number], Complete ([id number])
--- OUTSIDE RECORDS SUMMARY | 2024-11-11 14:57 | XMS_ITS | Clinical Summary ---
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 As needed for allergies/nasa l congestion 90 tablet 5 Active Active Problems Problem Noted Date Diagnosed Date MDD (major depressive disorder), single episode, moderate 09/17/2022 Assessment & Plan (10/21/2022 4:44 PM EDT): Presented with irritability rather than anhedonia. 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 [...] irritability rather than anhedonia. 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 [...] Encounters Date Type Department Care Team Description 10/12/2024 Telephone [facility] [address] [place] [phone] Blanca Quinn ANP CHART PREP 10/05/2024 Patient Outreach [facility] [address] [place] [address] Blanca Quinn ANP Pre-visit Planning (Pre-visit planning - LVM ) from Last 3 Months Social History Tobacco [...] 84 06/29/2024 1:13 PM EDT Temperature 37.1 C (98.7 F) 06/29/2024 1:13 PM EDT Respiratory Rate 20 06/29/2024 1:13 PM EDT Oxygen Saturation 98% 06/29/2024 1:13 PM EDT Inhaled Oxygen Concentration - - Weight 81.2 kg (179 lb) 06/29/2024 1:13 PM EDT Height 180.3 cm (5' 11 ) 04/05/2024 12:12 PM EST Body Mass Index 24.97 04/05/2024 12:12 PM EST Plan of Treatment Upcoming Encounters Date Type Department Care Team (Late st Contact Info) Description 12/07/2024 3:00 PM EDT Office Visit [facility] [address] [place] [address] Rakel Bliss, OD [address] [place] [address] Health Maintenance Due Date Last Done Comments CT Colonography 1978 Colonoscopy 1978 Colorectal Cancer Screening 1978 FIT DNA/Cologuard 1978 FIT 1978 FOBT 1978 HIV Screening 1978 Lipid Panel 1978 Sigmoidoscopy 1978 Disability Screening 1978 Family Planning (PISQ) 1993 HPV Vaccines (1 - Male 3-dos e series) 1993 Hepatitis C Screening 1996 Hepatitis B Vaccines (1 of 3 - 19+ 3-dose series) 1997 Depression Screening 10/22/2023 10/21/2022, 10/21/2022 SDOH Screening 11/29/2023 11/28/2022 COVID-19 Vaccine (3 - 2024-2 6 season) 2024 08/25/2020, 07/10/2020 Influenza Vaccine (#1) 2024 Alcohol/Substance Use Screening 06/29/2025 06/29/2024 DTaP/Tdap/Td Vaccines (1 - Tdap) 06/29/2025 Postponed from 11/27 (Patient Refused) Pneumococcal Vaccine: Pediatrics (0 to 5 Years) and At-Risk Patients (6 to 49) Years (1 of 2 - PCV) 06/29/2025 Postponed from 11/09 (Patient Refused) Tobacco Screening 06/29/2025 06/29/2024 Zoster [...] on patient's age to complete this topic Insurance [id number] Care Teams 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
== END 2024-11-11 14:11 | disposition home or self-care (01) ==
LOC: HO.HCS 13:41
PROVIDERS: PCP Nurse Practitioner Primary Care; Visit Provider Internal Medicine Cardiovascular Disease
DX: R06.02 Shortness of breath (principal)
CPT/HCPCS: 93010; 99204

== ENCOUNTER → 2024-11-11 13:40 | Outpatient (BNVA) | payer OTHER, SELFPAY | PROVIDERS: PCP Nurse Practitioner Primary Care; Visit Provider Internal Medicine Cardiovascular Disease | DX: R06.02 Shortness of breath (principal) | CPT/HCPCS: 93005; 99202 ==

== ENCOUNTER 2024-12-03 08:41 | Outpatient (AMB) | payer OTHER, SELFPAY ==
--- NOTE | 2024-12-03 08:46 | MHC.OFFVIS ---
Vital Signs 12/03/24 08:51 Height 5 ft 11 in Weight 178 lb BMI 24.8 BP 122/72 Blood Pressure Location Rt brachial Position Sitting Pulse 66 Pulse Source Pulse Oximeter Pulse Oximetry (%) 98 Oxygen Delivery Method Room Air Intake Visit Reasons: Gerd Follow up, GI Ba resuts r/s 10/04/24 Intake Note: Est pt for mgmt of GERD + abd pain. Imaging and labs done. CC: Pt denies any GI sx or changes at this time. Pt does request refill of PPI and confirms it is working well for him. Pt does report that he had issues getting the imaging done as he states that the radiology department cancelled the appointment for him. Director Of Infection Prevention Required: Yes Director Of Infection Prevention Services: Director Of Infection Prevention Present Director Of Infection Prevention Name: [id number] Brett [facility] Information Interpreted: clinical only Accompanied by: Self / Same As Patient Allergies No Known Drug Allergies Allergy (Verified 07/06/24 07:43) Unknown HPI HPI Gerd Follow up, GI Ba resuts r/s 10/04/24: Details: LAST VISIT Erosive esophagitis Gastritis Abdominal pain, LUQ (left upper quadrant) Constipation Nausea Postprandial abdominal bloating Colitis Diarrhea Plan Patient was encouraged to increase fiber. Will check transglutaminase to rule out celiac although patient had endoscopies done in the past celiac sprue not found on biopsy. Will check CRP and fecal calprotectin to rule out inflammatory bowel disease, however minimal elevation in fecal calprotectin can be seen when patient had viral enteritis and diarrhea for longer period of time. May need to be repeated, however patient should probably go for colonoscopy if he continues. Patient was encouraged to increase fluid intake and activity. Continue PPI. If patient is not responding well to PPI we might change him to [place]. Patient has appointment with us in August. He will call us sooner if he will have worsening symptoms or any other GI concerning symptoms. He is agreeable to current plan of care and verbalizes understanding of instructions. He was given the opportunity to ask questions and all questions answered. ? Thank you for allowing me to participate in his care TODAY'S VISIT Patient is here today for follow-up. Patient reports that he has been doing well since last visit. Patient was taking Nexium and written out of the medication about week ago and reports that his symptoms of acid reflux are starting to return. Patient reports that he was doing well when he was taking it. Denies any dyspepsia, dysphagia or odynophagia. Patient reports that he is moving his bowels well, however he does admit that he has takes senna occasionally to help him with bowel movements. Patient denies melena, hematochezia, unintentional weight loss or ribbon like stools. Patient denies any abdominal pain or discomfort. Patient denies any other GI concerning symptoms. [facility] Medical History Postnasal drip Dysphagia Early satiety Esophagitis Varicose vein of scrotum Hiatal hernia Acid reflux Ulcer Surgical History History of esophagogastroduodenoscopy (EGD) Hx of colonoscopy Family History Unknown No problems noted. Social History Household Members: Spouse and Children Alcohol intake: never Patient Tobacco Use Status: Never used Tobacco Current occupation: [employer] Review [employer] Systems Const Denies weight gain and Denies weight loss ENT Reports no additional complaints, Denies dysphagia and Denies odynophagia Card Reports no additional complaints Resp Reports no additional complaints GI Denies abdominal pain (LUQ), Denies belching, Denies melena, Reports bloating, Denies change in bowel habits, Denies dysphagia, Denies excessive flatus, Reports dyspepsia, Reports heartburn, Denies diarrhea, Denies loose stools, Reports nausea, Denies odynophagia and Denies vomiting Reports no additional complaints Musc Reports no additional complaints Neuro Reports no additional complaints Psych Reports no additional complaints Endo Reports no additional complaints Physical Exam Vital Signs: Last Vital Signs Pulse 66 12/03/24 08:51 BP 122/72 12/03/24 08:51 Pulse Ox 98 12/03/24 08:51 Oxygen Delivery Method Room Air 12/03/24 08:51 BMI result Body Mass Index 24.8 Const General: healthy appearing, no acute distress and well developed Nutritional Appearance: well nourished Orientation/consciousness: patient oriented x3 Resp Effort & Inspection: normal respiratory effort, able to speak in complete sentences, no tracheal deviation and symmetric chest movement Auscultation: clear to auscultation bilaterally Cardio Rate: regular rate GI Inspection: Yes normal to inspection and No distended Palpation (GI): Soft to palpation, not firm, nontender and No hepatosplenomegaly present Auscultation: normal bowel sounds General: Yes no CVA tenderness Back/Spine/Pelvis Back: no CVA tenderness Skin General skin exam: elasticity normal, turgor normal and dry skin Neuro General: patient oriented x3 Psych Appearance: grossly normal Mental Status: mental status grossly normal Results Reviewed Results Reviewed: UPPER GI SERIES 07/30/2024 IMPRESSION: 1. Small to moderate-sized type I hiatus hernia. 2. Episodic gastroesophageal reflux to the level of the thoracic inlet. 3. Normal-appearing stomach, duodenal bulb, and duodenum. Assessment & Plan Assessment & Plan (1) Erosive esophagitis: Code(s): K22.10 - Ulcer of esophagus without bleeding (2) Gastritis: Code(s): K29.70 - Gastritis, unspecified, without bleeding Qualifiers: Gastritis type: superficial Chronicity: chronic Gastritis bleeding: without bleeding Qualified Code(s): K29.30 - Chronic superficial gastritis without bleeding (3) Left upper quadrant abdominal pain: Code(s): R10.12 - Left upper quadrant pain (4) Constipation: Code(s): K59.00 - Constipation, unspecified Qualifiers: Constipation type: slow transit constipation Qualified Code(s): K59.01 - Slow transit constipation (5) Nausea: Code(s): R11.0 - Nausea (6) Postprandial abdominal bloating: Code(s): R14.0 - Abdominal distension (gaseous) (7) Colitis: Code(s): K52.9 - Noninfective gastroenteritis and colitis, unspecified (8) Diarrhea: Code(s): R19.7 - Diarrhea, unspecified Qualifiers: Diarrhea type: functional diarrhea Qualified Code(s): K59.1 - Functional diarrhea Plan Patient will continue taking Nexium every morning. Continue avoiding dietary triggers late night snacking. Staying affect for minimum 3 hours after meals discussed with patient. Patient may take senna as needed to help with bowel movement. Increase fiber, fluid intake and activity to promote better bowel motility. Patient will follow-up in 6 months, sooner on as needed basis. He is agreeable to this plan and verbalizes understanding of instructions. He was given the opportunity to ask questions and all questions answered. Thank you for allowing me to participate in his care Medications: Refilled esomeprazole magnesium (Nexium) 40 mg PO DAILY 90 caps 4RF K21.9 - Gastro-esophageal reflux disease without esophagitis sennosides (Natural Senna Laxative) 17.2 mg (2 x 8.6 mg) PO BEDTIME 180 tabs 3RF constipation K59.00 - Constipation, unspecified Discontinued dicyclomine Discontinued Reason: Doctor's Order 20 mg PO BID PRN 10 tabs 0RF abdominal pain Coding Level of Care Code Est Pt Level 3 (09874) Diagnoses Erosive esophagitis K22.10 Chronic superficial gastritis without bleeding K29.30 Gastritis type: superficial Chronicity: chronic Gastritis bleeding: without bleeding Left upper quadrant abdominal pain R10.12 Slow transit constipation K59.01 Constipation type: slow transit constipation Nausea R11.0 Postprandial abdominal bloating R14.0 Colitis K52.9 Functional diarrhea K59.1 Diarrhea type: functional diarrhea Time Spent (min) 30 Comment 20 minutes spent with patient and additional 10 minutes spent reviewing his records
[2024-12-03 08:51] VITALS: BP 122/72; PULSE 66; O2SAT 98; BMI 24.8
--- OUTSIDE RECORDS SUMMARY | 2024-12-03 09:06 | XMS_ITS | Clinical Summary ---
Author Organization [employer] Address [address] [place] [address] [address] [place] [address] Care Team Providers Care Manager Dialysis Name Role Phone Blanca Quinn ERYN Primary Care Provider [phone] Allergies No known active allergies Medications * [...] times/d 48 g 5 Active sodium chloride ([place] Nasal [place]) 0.65 % nasal sprayIndications: Nasal congestion 1-2 [...] irritability rather than anhedonia. 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 [...] irritability rather than anhedonia. 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 [...] Type Department Care Team Description 10/12/2024 Telephone [facility] [address] [place] [phone] Blanca Quinn ANP CHART PREP 10/05/2024 Patient Outreach [facility] [address] [place] [address] Blanca Quinn ANP Pre-visit Planning (Pre-visit planning [...] Description 12/07/2024 3:00 PM EDT Office Visit [facility] [address] [place] [address] Rakel Bliss, OD [address] [place] [address] Health Maintenance Due Date Last Done Comments [...] patient's age to complete this topic Insurance [id number] Care Teams Manager Dialysis Relationship Specialty Start Date End Date Blanca Quinn ANP [address] [place] [id number] PCP - General Family Medicine 01/15/19
== END 2024-12-03 09:12 | disposition home or self-care (01) ==
LOC: HO.HGI 08:41
PROVIDERS: PCP Nurse Practitioner Primary Care; Visit Provider Nurse Practitioner Family
DX: K22.10 Ulcer of esophagus without bleeding (principal); K29.30 Chronic superficial gastritis without bleeding; R10.12 Left upper quadrant pain; K59.01 Slow transit constipation; R11.0 Nausea; R14.0 Abdominal distension (gaseous); K52.9 Noninfective gastroenteritis and colitis, unspecified; K59.1 Functional diarrhea
CPT/HCPCS: 99213

== ENCOUNTER → 2024-12-03 08:41 | Outpatient (BNVA) | payer OTHER, SELFPAY | PROVIDERS: PCP Nurse Practitioner Primary Care; Visit Provider Nurse Practitioner Family | DX: K21.9 Gastro-esophageal reflux disease without esophagitis (principal); K22.10 Ulcer of esophagus without bleeding; K29.30 Chronic superficial gastritis without bleeding; R10.12 Left upper quadrant pain; K59.01 Slow transit constipation; K52.9 Noninfective gastroenteritis and colitis, unspecified; K59.1 Functional diarrhea; R11.0 Nausea; R14.0 Abdominal distension (gaseous) | CPT/HCPCS: 99212 ==